=== PATIENT | male | born 1990 | race Caucasian/White ===

== ENCOUNTER 2021-07-19 12:10 | Outpatient (REF) | payer BC, SELFPAY ==
[2021-07-19 15:49] LABS: COVID-19 Test Negative (Negative)
== END 2021-07-19 12:11 | disposition home or self-care (01) ==
LOC: HO.LAB 12:10
PROVIDERS: Visit Provider Internal Medicine
DX: Z20.822 Contact with and (suspected) exposure to COVID-19 (principal)
CPT/HCPCS: 87635; C9803

== ENCOUNTER 2023-06-06 12:58 | Outpatient (AMB) | payer OTHER, SELFPAY ==
--- NOTE | 2023-06-06 13:28 | AM.OFFWIN_ITS ---
Intake Vital Signs 06/06/23 13:36 Height 5 ft 10 in Weight 177 lb 6 oz BMI 25.4 BP 122/78 Blood Pressure Location Lt brachial Position Sitting Pulse 100 Pulse Source Pulse Oximeter Temp 97.9 F Temp Source Temporal Artery Scan Pulse Oximetry (%) 100 Oxygen Delivery Method Room Air Intake Visit Reasons: EP sore throat/strepth [id number] Intake Note: Pt is here c/o sore throat. Patient Tobacco Use Status: Never used Tobacco Allergies mercaptopurine Adverse Reaction (Intermediate, Verified 06/06/23 13:30) Unknown Do you need a note to return to daycare/school/sports/work: No HPI HPI Comments History of Present Illness Details Patient presents with ST complaint Since since last Sunday + ST 6/ in am Worse in am Better throughout day No ear pain + congestion and cough No CP or SOB No fever or chills Taking OTC medicine which helps No other complaints Brother and GF sick as well PFSH Social History Patient Tobacco Use Status: Never used Tobacco Review of Systems Const Denies chills and Denies fever(s) Eyes Denies blurry vision ENT Reports nasal discharge and Reports sore throat Card Denies chest pain Resp Reports cough and Denies pain with cough Physical Exam Vital Signs: Last Vital Signs Temp 97.9 F 06/06/23 13:36 Pulse 100 06/06/23 13:36 BP 122/78 06/06/23 13:36 Pulse Ox 100 06/06/23 13:36 Oxygen Delivery Method Room Air 06/06/23 13:36 BMI result Body Mass Index 25.4 General: Non-toxic, NAD. Speaking full sentences. Skin: Warm dry throughout Eye: EOMI HENT: Airway patent. Uvula midline. Slight pharyngeal erythema without exudates or edema. No DOWEL POINTER. +clear rhinorrhea Bilateral canals clear. TM non-erythematous, non-bulging. No TM perforation or hemotympanum noted. Respiratory: CTA bilaterally. No wheezes, rales or rhonchi Cardiac: RRR. No murmur MSK: Full ROM extremities. Neurology: A/O. No aphasia or facial droop. Gait without abnormality Psych: Good mood and affect Results AMB Rapid Strep AMB Rapid Strep Negative Last Edit by Jayne Barroso CMA on 06/06/23 13:53 Results Reviewed Results Reviewed: Laboratory Last Values Strep Scn Rapid Clinic Negative 06/06/23 13:52 Assessment & Plan Assessment & Plan (1) Upper respiratory disease: Code(s): J39.9 - Disease of upper respiratory tract, unspecified Plan Patient seen and evaluated Lungs CTA Strep negative Discussed fluids and continual OTC medicine Call PCP for follow up ED if worsening Pt expressed verbal understanding and all questions answered Orders: Orders AMB Rapid Strep Screen 06/06/23 Z13.9 - Encounter for screening, unspecified Coding Level of Care Code Est Pt Level 3 (04409) Diagnoses Upper respiratory disease J39.9
[2023-06-06 13:36] VITALS: BP 122/78; PULSE 100; TEMP 36.6; O2SAT 100; BMI 25.4
== END 2023-06-06 15:12 | disposition home or self-care (01) ==
PROVIDERS: Visit Provider Physician Assistant
DX: J02.9 Acute pharyngitis, unspecified (principal)
CPT/HCPCS: 87880; 99213

== ENCOUNTER 2023-08-07 08:03 | Outpatient (AMB) | payer OTHER, SELFPAY ==
--- NOTE | 2023-08-07 08:06 | MHC.OFFWIV ---
Intake Vital Signs 08/07/23 08:17 Height 5 ft 10 in Weight 177 lb BMI 25.4 BP 122/74 Blood Pressure Location Lt brachial Position Sitting Pulse 85 Pulse Source Pulse Oximeter Temp 97.8 F Temp Source Oral Pulse Oximetry (%) 98 Intake Visit Reasons: EP LFT eye infection Intake Note: pt is here for left eye infection, states has runny nose, denies vision changes, states there is light sensitivity both eyes corrected 20/13 right eye corrected 20/20 left eye corrected 20/25 Patient Tobacco Use Status: Never used Tobacco Allergies mercaptopurine Adverse Reaction (Intermediate, Verified 08/07/23 09:13) Unknown Medication List - Last Reconciled 08/07/23 by Brian Ramirez MD No Known Home Meds Do you need a note to return to daycare/school/sports/work: Yes HPI EP LFT eye infection HPI Details 32-year-old male presents to the office with worsening pain in the left eye. Symptoms started on Sunday and the pain is slowly worsening. He is having significant photophobia him and is wearing dark glasses while coming to the office today. No mucoid discharge from the eye. Increased tearing. Denies any foreign body sensation. PFSH Social History Patient Tobacco Use Status: Never used Tobacco Physical Exam Vital Signs: Last Vital Signs Temp 97.8 F 08/07/23 08:17 Pulse 85 08/07/23 08:17 BP 122/74 08/07/23 08:17 Pulse Ox 98 08/07/23 08:17 BMI result Body Mass Index 25.4 HEENT Other: Left eye: Bulbar and tarsal conjunctiva is congested, corneas clear pupil reacting to light. Moderate digital tenderness Assessment & Plan Assessment & Plan (1) Iritis: Code(s): H20.9 - Unspecified iridocyclitis Plan: Iritis needs to be ruled out. There was no fluoro uptake. Patient was made an ophthalmology appointment for later this afternoon at [address] Coding Level of Care Code Est Pt Level 4 (06061) Diagnoses Iritis H20.9
[2023-08-07 08:17] VITALS: BP 122/74; PULSE 85; TEMP 36.6; O2SAT 98; BMI 25.4
== END 2023-08-07 09:41 | disposition home or self-care (01) ==
PROVIDERS: Visit Provider Internal Medicine
DX: H20.9 Unspecified iridocyclitis (principal)
CPT/HCPCS: 99214

== ENCOUNTER 2023-08-08 07:29 | Outpatient (REF) | payer OTHER, SELFPAY ==
[2023-08-08 11:38] LABS: MANUAL DIFF FLAG NO
[2023-08-08 11:51] LABS: Basophils Absolute Auto 0.1 X10*3/uL (0.0-0.2); Basophils Percent Auto 0.6 % (0-2); Eosinophils Absolute Auto 0.1 X10*3/uL (0.0-0.4); Hematocrit 52.5 % (42.0-52.0); Hemoglobin 18.3 g/dl (14.0-18.0); Imm Gran Abs Auto 0.04 X10*3/uL (0.00-0.03); Imm Gran Pct Auto 0.4 % (0.0-0.4); Lymphocytes Absolute Auto 2.7 X10*3/uL (1.2-4.9); Lymphocytes Percent Auto 25.4 % (20-40); Mean Corpuscular HGB Conc 34.9 g/dl (31.0-36.0); Mean Corpuscular Hemoglobin 29.6 pg (27.0-33.0); Mean Corpuscular Volume 84.8 fL (80.0-98.0); Monocytes Absolute Auto 0.8 X10*3/uL (0.1-1.2); Neutrophils Absolute Auto 6.8 x10*3/uL (2.0-8.3); Neutrophils Percent Auto 64.6 % (45-73); Platelet Count 214 X10*3/uL (160-400); Red Blood Count 6.19 X10*6/uL (4.60-5.80); Red Cell Distribution Width 12.1 % (11.0-16.0); White Blood Count 10.4 X10*3/uL (4.8-10.8)
[2023-08-08 12:04] LABS: Rheumatoid Factor < 13.0 IU/mL (<15.0)
[2023-08-08 12:15] LABS: Anion Gap 13 (12-20); C Reactive Protein 0.61 mg/dL (< or = 0.50); Carbon Dioxide 27 mmol/L (22-29); Chloride 102 mmol/L (96-108); Potassium 4.7 mmol/L (3.3-5.1); Sodium 137 mmol/L (135-145)
[2023-08-08 12:17] LABS: Glucose Fasting 353 mg/dL (60-99)
[2023-08-08 13:21] LABS: Erythrocyte Sedimentation Rate 18 MM/HR (0-15)
[2023-08-09 03:50] LABS: Syphilis Screen Nonreactive (Nonreactive)
[2023-08-11 13:58] LABS: Anti Nuclear Antibody Screen NEGATIVE (NEGATIVE)
== END 2023-08-08 07:30 | disposition home or self-care (01) ==
LOC: HO.HMGCLDS 07:29
PROVIDERS: Visit Provider Ophthalmology
DX: H20.9 Unspecified iridocyclitis (principal)
CPT/HCPCS: 36415; 80051; 82947; 85025; 85652; 86038; 86140; 86431; 86780

== ENCOUNTER 2023-08-29 13:36 | Outpatient (AMB) | payer OTHER, SELFPAY ==
--- NOTE | 2023-08-29 13:59 | A.OFFPC_ITS ---
Vital Signs 08/29/23 14:02 Height 5 ft 10 in Weight 167 lb 6 oz BMI 24.0 BP 110/70 Blood Pressure Location Lt brachial Position Sitting Pulse 105 H Pulse Source Pulse Oximeter Pulse Oximetry (%) 98 Oxygen Delivery Method Room Air Intake Visit Reasons: medication follow up/ elevated fasting blood sugar Intake Note: Patient is a new patient here to establish care for IBS, Chron's, Eye issues, Diabetes. Transferring care from Dr Herrera ([facility]). Medical records have not been requested and have not received.Patient is here to follow up on medication f/u, elevated fasting blood sugar. Patient Safety Attendant Required: No Video Surveillance Technician: Not Required per policy Accompanied by: Self / Same As Patient Allergies mercaptopurine Adverse Reaction (Intermediate, Verified 08/29/23 14:28) pancreatitis Medication List - Last Reconciled 08/29/23 by Brian Ramirez MD metformin 500 mg PO BID prednisolone acetate 1% 1 drp ophthalmic (eye) TID Tobacco use date assessed: 08/29/23 Dental Screening Dental Screen Date: 08/29/23 Did you have a dental visit in the last 12 months?: No Did you have a dental problem in the last 6 months where you did not have access to dental care?: No Was dental information given to patient?: No HPI medication follow up/ elevated fasting blood sugar HPI Details 33-year-old male presents to the office to discuss his medical conditions. Patient was initially seen at the walk-in a few weeks ago and diagnosed with iritis. He was immediately sent to a local rehab tech who confirmed the diagnosis and did blood work to rule out autoimmune conditions. His blood sugar was found to be elevated. Patient requested that I be his primary care provider. Patient gives history of inflammatory bowel disease in the remote past. For the past 6 years he has not been taking any medications. His symptoms have also been under control. The last colonoscopy was more than 6 years ago. After starting metformin his symptoms of increased frequency of urination has subsided. [facility] Medical History (Updated 08/29/23 @ 14:35 by Brian Ramirez MD) Inflammatory bowel disease (Crohn's disease) Type 2 diabetes mellitus without complications Acute iritis Surgical History No pertinent past surgical history Social History Housing: House Alcohol intake: current Alcohol intake frequency: holidays/special occasions only Patient Tobacco Use Status: Never used Tobacco e-Cigarette/Vaping Use: Never Used Second Hand Smoke Exposure: No service: No Current occupational status: employed Cognitive needs: No Hearing needs: No Vision needs: Yes (glasses) Questionnaire PHQ-9 Over the last 2 weeks, how often have you been bothered by any of the following problems? 1. Little interest or pleasure in doing things: not at all 2. Feeling down, depressed, or hopeless: not at all 3. Trouble falling or staying asleep, or sleeping too much: not at all 4. Feeling tired or having little energy: not at all 5. Poor appetite or overeating: not at all 6. Feeling bad about yourself - or that you are a failure or have let yourself or your family down: not at all 7. Trouble concentrating on things, such as reading the newspaper or watching television: not at all 8. Moving or speaking so slowly that other people could have noticed. Or the opposite - being so fidgety or restless that you have been moving around a lot more than usual: not at all 9. Thoughts that you would be better off or of hurting yourself in some way: not at all Total score: 0 Depression Screening Interpretation: Negative Depression Screening Done: Yes Source: Developed by Drs. Ed Ewing, Alicia Garcia, Lonnie Caballero and colleagues, with an educational radha from [employer] Thrive Questionnaire Date Thrive assessed: 08/29/23 I am a: Patient What is your living situation today?: I have a steady place to live Within the past 12 months, did the food you bought not last and you didn't have the money to get more?: Never true Within the past 12 months, did you worry whether your food would run out before you got money to buy more?: Never true Do you have trouble paying for medicines?: No Do you have trouble getting transportation to medical appointments?: No Do you have trouble paying your heating and electricity bill?: No Do you have trouble taking care of your child, family member or friend?: No Do you have trouble with day-to-day activities such as bathing, preparing meals, shopping, managing finances, etc.?: No Are you currently unemployed and looking for a job?: No Are you interested in more education?: No Currently or been in a relationship where the following occur: no concerns reported THRIVE Score: 0 AUDIT C Alcohol Use Questionnaire (AUDIT-C) 1. How often do you have a drink containing alcohol?: Never Total Score: 0 ESA-7 AMB Questionnaire ESA-7 Date ESA - 7 assessed: 08/29/23 Feeling nervous, anxious, or on edge: 0 = Not at all Not being able to stop or control worryin = Not at all Worrying too much about different things: 0 = Not at all Trouble relaxin = Not at all Being so restless that it is hard to sit still: 0 = Not at all Becoming easily annoyed or irritable: 0 = Not at all Feeling afraid as if something awful might happen: 0 = Not at all Total ESA-7 score (0-4 normal; 5-9 mild; 10-14 moderate; 15-21 severe): 0 Source: Developed by Drs. Ed Ewing, Alicia Garcia, Lonnie Caballero and colleagues, with an educational radha from [employer] Physical exam (Primary Care) Vital Signs: Last Vital Signs Pulse 105 H 08/29/23 14:02 BP 110/70 08/29/23 14:02 Pulse Ox 98 08/29/23 14:02 Oxygen Delivery Method Room Air 08/29/23 14:02 BMI result Body Mass Index 24.0 Tobacco/Smoking Status: Tobacco use Status Tobacco use date assessed 08/29/23 08/29/23 14:10 Patient Tobacco Use Status Never used Tobacco 08/29/23 14:09 e-Cigarette/Vaping Use Never Used 08/29/23 14:10 PHQ-9: PHQ-9 Score PHQ-9: Total score 0 08/29/23 14:10 Depression Screening Interpretation: Negative Thrive Assessment: Date of Thrive Assessment Date Thrive assessed 08/29/23 08/29/23 14:10 Currently or been in a relationship where the following occur: no concerns reported Const General: cooperative and healthy appearing Nutritional Appearance: well nourished Orientation/consciousness: patient oriented x3 Limitations: no limitations HENMT Head: Yes normal to inspection Eyes General: appearance normal, both eyes and all related structures Neck Neck: Yes normal visual inspection Chest Chest palpation & inspection: normal palpation of entire chest wall Resp Effort & Inspection: normal respiratory effort Neuro General: patient oriented x3 Assessment and Plan Assessment & Plan (1) Type 2 diabetes mellitus without complications: Code(s): E11.9 - Type 2 diabetes mellitus without complications Plan: Metformin to be continued. Blood work has been ordered. (2) Inflammatory bowel disease (Crohn's disease): Code(s): K50.90 - Crohn's disease, unspecified, without complications Plan: This condition appears to be stable. (3) Acute iritis: Code(s): H20.00 - Unspecified acute and subacute iridocyclitis Plan: Condition is improving and he continues to see the rehab tech. Coding Level of Care Code Est Pt Level 4 (50507) Diagnoses Type 2 diabetes mellitus without complications E11.9 Inflammatory bowel disease (Crohn's disease) K50.90 Acute iritis H20.00
[2023-08-29 14:02] VITALS: BP 110/70; PULSE 105; O2SAT 98; BMI 24.0
== END 2023-08-29 14:28 | disposition home or self-care (01) ==
PROVIDERS: Visit Provider Internal Medicine
DX: E11.9 Type 2 diabetes mellitus without complications (principal); K50.90 Crohn's disease, unspecified, without complications; H20.00 Unspecified acute and subacute iridocyclitis
CPT/HCPCS: 99214

== ENCOUNTER 2023-08-31 10:14 | Outpatient (REF) | payer OTHER, SELFPAY ==
[2023-08-31 13:30] LABS: Hematocrit 49.1 % (42.0-52.0); Hemoglobin 17.3 g/dl (14.0-18.0); Mean Corpuscular HGB Conc 35.2 g/dl (31.0-36.0); Mean Corpuscular Hemoglobin 29.1 pg (27.0-33.0); Mean Corpuscular Volume 82.5 fL (80.0-98.0); Platelet Count 232 X10*3/uL (160-400); Red Blood Count 5.95 X10*6/uL (4.60-5.80); Red Cell Distribution Width 11.9 % (11.0-16.0); White Blood Count 8.9 X10*3/uL (4.8-10.8)
[2023-08-31 14:06] LABS: Estimated Average Glucose 246 mg/dL; Hemoglobin A1c % 10.2 % (<6.0)
[2023-08-31 14:15] LABS: Erythrocyte Sedimentation Rate 12 MM/HR (0-15)
[2023-08-31 14:42] LABS: Alanine Aminotransferase 16 U/L (0-40); Albumin Level 3.8 g/dL (3.5-5.0); Alkaline Phosphatase 67 U/L (39-117); Anion Gap 11 (12-20); Aspartate Amino Transferase 13 U/L (5-37); Bilirubin Direct 0.3 mg/dL (0.0-0.5); Bilirubin Total 1.4 mg/dL (0.0-1.0); Blood Urea Nitrogen 20 mg/dL (9-16); Calcium 9.7 mg/dL (8.4-10.2); Carbon Dioxide 26 mmol/L (22-29); Chloride 108 mmol/L (96-108); Cholesterol 169 mg/dL (<200); Estimated Glomerular Filt Rate > 60; Glucose Random 224 mg/dL (60-115); HDL Cholesterol 33 mg/dL (>40); LDL Cholesterol Calculated 102 mg/dL (<100); Potassium 3.8 mmol/L (3.3-5.1); Sodium 141 mmol/L (135-145); Triglycerides 173 mg/dL (<150)
== END 2023-08-31 10:15 | disposition home or self-care (01) ==
LOC: HO.HMGCLDS 10:14
PROVIDERS: PCP Internal Medicine; Visit Provider Internal Medicine
DX: K50.90 Crohn's disease, unspecified, without complications (principal); E11.9 Type 2 diabetes mellitus without complications; H20.00 Unspecified acute and subacute iridocyclitis
CPT/HCPCS: 36415; 80048; 80061; 80076; 83036; 85027; 85652; 86140

== ENCOUNTER 2023-12-20 08:52 | Outpatient (AMB) | payer OTHER, SELFPAY ==
--- NOTE | 2023-12-20 09:37 | A.OFFPC_ITS ---
Vital Signs 12/20/23 09:38 Height 5 ft 10 in Weight 157 lb 4 oz BMI 22.6 BP 102/72 Blood Pressure Location Lt brachial Position Sitting Pulse 135 H Pulse Source Pulse Oximeter Pulse Oximetry (%) 97 Oxygen Delivery Method Room Air Intake Visit Reasons: 3mth f/u Intake Note: Patient is here to follow up on DM, IBS. Instrument Repair Technician Required: No Conveyor System Dispatcher: Not Required per policy Accompanied by: Self / Same As Patient Allergies mercaptopurine Adverse Reaction (Intermediate, Verified 12/20/23 10:38) pancreatitis Medication List - Last Reconciled 12/20/23 by Brian Ramirez MD empagliflozin (Jardiance) 25 mg PO DAILY metformin 500 mg PO BID Tobacco use date assessed: 12/20/23 Dental Screening Dental Screen Date: 08/29/23 HPI 3mth f/u HPI Details 33-year-old male presents to the office for a follow-up visit. Patient has been compliant with metformin and Jardiance. Not checking his sugars regularly. Not following any particular diet. Patient reports that the metformin continues to give him diarrhea. It has been more than 6 weeks since he has been on the medication and the symptoms continue. Up to 6 bowel movements a day with minimal cramping. He is getting up at night to go to the bathroom. The stools are oily. [facility] Medical History (Updated 08/29/23 @ 14:35 by Brian Ramirez MD) Inflammatory bowel disease (Crohn's disease) Type 2 diabetes mellitus without complications Acute iritis Surgical History No pertinent past surgical history Social History Housing: House Alcohol intake: current Alcohol intake frequency: holidays/special occasions only Patient Tobacco Use Status: Never used Tobacco e-Cigarette/Vaping Use: Never Used Second Hand Smoke Exposure: No service: No Current occupational status: employed Cognitive needs: No Hearing needs: No Vision needs: Yes (glasses) Questionnaire Thrive Questionnaire Date Thrive assessed: 08/29/23 ESA-7 AMB Questionnaire ESA-7 Date ESA - 7 assessed: 08/29/23 Source: Developed by Drs. Ed Ewing, Alicia B.Lonnie Herrera and colleagues, with an educational radha from [employer]. Physical exam (Primary Care) Vital Signs: Last Vital Signs Pulse 135 H 12/20/23 09:38 BP 102/72 12/20/23 09:38 Pulse Ox 97 12/20/23 09:38 Oxygen Delivery Method Room Air 12/20/23 09:38 BMI result Body Mass Index 22.6 Tobacco/Smoking Status: Tobacco use Status Tobacco use date assessed 12/20/23 12/20/23 09:39 Patient Tobacco Use Status Never used Tobacco 12/20/23 09:39 e-Cigarette/Vaping Use Never Used 12/20/23 09:39 Thrive Assessment: Date of Thrive Assessment Date Thrive assessed 08/29/23 12/20/23 09:39 Const General: cooperative and healthy appearing Nutritional Appearance: well nourished Orientation/consciousness: patient oriented x3 Limitations: no limitations HENMT Head: Yes normal to inspection Eyes General: appearance normal, both eyes and all related structures Neck Neck: Yes normal visual inspection Chest Chest palpation & inspection: normal palpation of entire chest wall Resp Effort & Inspection: normal respiratory effort Neuro General: patient oriented x3 Results AMB Hemoglobin A1c AMB Hemoglobin A1c 7.2 % Last Edit by ANKUSH Perez on 12/20/23 09:54 Results Reviewed Results Reviewed: Laboratory Last Values Hgb A1c (Clinic) 7.2 % (4.0-6.0) H 12/20/23 09:37 Assessment and Plan Assessment & Plan (1) Type 2 diabetes mellitus without complications: Code(s): E11.9 - Type 2 diabetes mellitus without complications Plan A1c has reduced to 7.2. Metformin is now on hold. I believe his symptoms are more due to IBS than as a side effect of metformin. Patient will return in 2 weeks and if the symptoms are still present, I will add the metformin back and advised him to see a GI physician. Orders: Orders AMB Hemoglobin A1c Today E11.9 - Type 2 diabetes mellitus without complications Medications: On Hold metformin Hold Comment: Doctor's Order 500 mg PO BID 60 tabs 0RF E11.9 - Type 2 diabetes mellitus without complications Coding Level of Care Code Est Pt Level 4 (16443) Complex EM visit Add On G2211 Diagnoses Type 2 diabetes mellitus without complications E11.9
[2023-12-20 09:38] VITALS: BP 102/72; PULSE 135; O2SAT 97; BMI 22.6
== END 2023-12-20 10:35 | disposition home or self-care (01) ==
LOC: HO.HMGH 08:52
PROVIDERS: PCP Internal Medicine; Visit Provider Internal Medicine
DX: E11.9 Type 2 diabetes mellitus without complications (principal)
CPT/HCPCS: 83036; 99214; G2211

== ENCOUNTER 2023-12-31 11:22 | Inpatient (IN) | payer OTHER, SELFPAY ==
--- NOTE | ~2023-12-31 | CT_ITS ---
EXAMINATION: CT CHEST WITH CONTRAST CLINICAL INFORMATION: Left lung mass, question pneumonia versus mass COMPARISON: None available. TECHNIQUE: Multidetector volumetric CT imaging of the chest was obtained after the administration of 65 mL of Omnipaque 350 intravenous contrast without immediate adverse reactions. Axial MIP volume rendering provided. Sagittal and coronal reformatted images were obtained. This CT examination was performed using dose optimization techniques as appropriate, variously including the following: *Automated exposure control *Adjustment of mA and/or kV according to patient size (this includes techniques or standardized protocols for targeted exams where dose is matched to indication/reason for exam; i.e. extremities or head) *Use of iterative reconstruction technique DLP: 211 mGy-cm FINDINGS: LUNGS: Within the periphery of the left upper lobe, there is a cavitary masslike lesion measuring approximately 5.2 x 6.7 x 6.9 cm with surrounding groundglass and consolidative components. There are patchy peripheral centrilobular opacities in the periphery of the left lower lobe MEDIASTINUM: Thyroid is unremarkable. There are prominent but subcentimeter mediastinal lymph nodes. Normal heart size, no pericardial effusion. No coronary artery calcifications. PLEURA: There is no pleural effusion. No pleural mass or thickening. AXILLA: Mild gynecomastia. No lymphadenopathy. UPPER ABDOMEN: Enlarged spleen. OSSEOUS STRUCTURES: Unremarkable. CT/CT chest w IV con IMPRESSION: 1. Within the periphery of the left upper lobe, there is a cavitary masslike lesion measuring 5.2 x 6.7 x 6.9 cm with surrounding groundglass and consolidative components. Differential considerations would include an infectious/inflammatory process such as cavitary pneumonia, septic emboli, however, underlying malignancy is not excluded. Tuberculosis could also have this appearance, correlate with clinical history. 2. Additional patchy peripheral centrilobular opacities in the periphery of the left lower lobe and in the right lung base. 3. Splenomegaly. Fleischner guidelines were followed.
[2023-12-31 12:08] VITALS: BP 130/85; PULSE 117; RESP 18; TEMP 36.9; O2SAT 96; BMI 22.0
--- NOTE | 2023-12-31 12:13 | ECG_ITS ---
Test Reason : tachycardia Blood Pressure : / mmHG Vent. Rate : 120 BPM Atrial Rate : 120 BPM P-R Int : 122 ms QRS Dur : 092 ms QT Int : 346 ms P-R-T Axes : 073 008 044 degrees QTc Int : 489 ms Sinus tachycardia Inferior infarct , age undetermined Abnormal ECG No previous ECGs available Referred By: Generic ED Physician Electronically Signed By:Sebas Velez
[2023-12-31 12:43] LABS: Basophils Absolute Auto 0.1 X10*3/uL (0.0-0.2); Basophils Percent Auto 0.7 % (0-2); Eosinophils Absolute Auto 0.4 X10*3/uL (0.0-0.4); Eosinophils Percent Auto 2.9 % (0-4); Hematocrit 43.7 % (42.0-52.0); Hemoglobin 14.7 g/dl (14.0-18.0); Imm Gran Abs Auto 0.04 X10*3/uL (0.00-0.03); Imm Gran Pct Auto 0.3 % (0.0-0.4); Lymphocytes Absolute Auto 2.5 X10*3/uL (1.2-4.9); Lymphocytes Percent Auto 19.7 % (20-40); MANUAL DIFF FLAG SCAN; Mean Corpuscular HGB Conc 33.6 g/dl (31.0-36.0); Mean Corpuscular Hemoglobin 27.8 pg (27.0-33.0); Mean Corpuscular Volume 82.8 fL (80.0-98.0); Mean Platelet Volume 9.7 fL (9.4-12.4); Monocytes Absolute Auto 1.5 X10*3/uL (0.1-1.2); Monocytes Percent Auto 12.1 % (2-11); Neutrophils Absolute Auto 8.2 x10*3/uL (2.0-8.3); Neutrophils Percent Auto 64.3 % (45-73); Platelet Count 407 X10*3/uL (160-400); Red Blood Count 5.28 X10*6/uL (4.60-5.80); Red Cell Distribution Width 12.1 % (11.0-16.0); SCAN SMEAR FLAG 1; White Blood Count 12.7 X10*3/uL (4.8-10.8)
[2023-12-31 12:56] LABS: Alanine Aminotransferase 17 U/L (0-40); Albumin Level 3.5 g/dL (3.5-5.0); Alkaline Phosphatase 81 U/L (39-117); Anion Gap 13 (12-20); Aspartate Amino Transferase 12 U/L (5-37); Bilirubin Total 0.8 mg/dL (0.0-1.0); Blood Urea Nitrogen 14 mg/dL (9-16); Calcium 9.5 mg/dL (8.4-10.2); Carbon Dioxide 26 mmol/L (22-29); Chloride 103 mmol/L (96-108); Creatinine Clr Calc Pharmacy 82.7; Estimated Glomerular Filt Rate > 60; Glucose Random 246 mg/dL (60-115); Potassium 3.6 mmol/L (3.3-5.1); Sodium 138 mmol/L (135-145); Total Protein 7.6 g/dL (6.5-8.0)
[2023-12-31 13:02] LABS: SLIDE REVIEW VERIFIED
[2023-12-31 13:28] LABS: Influenza A PCR NEGATIVE (Negative); Influenza B PCR NEGATIVE (Negative); Resp Syncy Virus RNA Qual PCR NEGATIVE (Negative); SARS COV2 PCR INHOUSE NEGATIVE (Negative)
--- NOTE | 2023-12-31 14:22 | ED_ITS ---
HPI - Extremity Problem General Chief complaint: Extremity Injury, Upper Stated complaint: Mass on lung sent by urgent care Time Seen by Provider: 12/31/23 14:21 Source: patient and RN notes reviewed Mode of arrival: ambulatory Limitations: no limitations History of Present Illness ED Provider: China Blandon PA-C [facility] Narrative: This is a 33-year-old male who presents emergency department with complaints of cough, shortness for breath, and left-sided chest heaviness x 2 weeks. Patient reports that he developed a cold 2 weeks ago after camping and states that he has had a productive cough with yellow-colored sputum, shortness for breath, and left-sided chest heaviness since. He went to an urgent care where he had a chest x-ray performed and there was a 8 cm cavitary lesion noted in his left lung. He was told to come to the emergency room for a CT scan of his chest. He has had no fevers, night sweats, profound weight loss. He was [place], no recent travels. No sick contacts. No other complaints or concerns at this time Radiation: none Relieving factors: nothing Exacerbating factors: nothing Associated symptoms: denies other symptoms Related Data Previous Rx's ?Medication ?Instructions ?Recorded empagliflozin 25 mg tablet 25 mg PO DAILY #90 tabs 12/06/23 (Jardiance) metformin 500 mg tablet 500 mg PO BID #60 tabs 12/06/23 Allergies Allergy/AdvReac Type Severity Reaction Status Date / Time mercaptopurine AdvReac Intermediate pancreatiti Verified 12/31/23 12:13 s Review of Systems 2 Review of Systems: Yes all other systems are reviewed and are negative Constitutional: Constitutional: Reports as per [facility] Past Medical History Attestation statement: The following information was validated with the patient. Medical History Inflammatory bowel disease (Crohn's disease) Type 2 diabetes mellitus without complications Acute iritis Surgical History No pertinent past surgical history Social History Social History Housing: House Alcohol intake: current Alcohol intake frequency: holidays/special occasions only Patient Tobacco Use Status: Never used Tobacco e-Cigarette/Vaping Use: Never Used Second Hand Smoke Exposure: No Advance Directives: No Advance Directives Information Provided: Yes Do you have a plan to hurt others: No Plan service: No Current occupational status: employed Cognitive needs: No Hearing needs: No Vision needs: Yes (glasses) Physical Exam 2 Vital Signs: Vital Signs: Last Vital Signs Temp 98.4 F 12/31/23 12:08 Pulse 117 H 12/31/23 12:08 Resp 18 12/31/23 12:08 BP 130/85 12/31/23 12:08 Pulse Ox 96 12/31/23 12:08 O2 Del Method Room Air 12/31/23 12:08 BMI result Body Mass Index 22.0 Const: General: cooperative, comfortable and no acute distress O rientation/consciousness: patient oriented x3 Limitations: no limitations HEENT: Head: Yes normal to inspection, Yes normocephalic and Yes atraumatic Ears: hearing grossly normal bilaterally General nose exam: Normal external nose present Face and sinus: Yes normal facial exam Mouth: Normal oral and palatal mucosa present, oropharynx normal and moist mucous membranes Throat: Yes posterior oropharynx normal Eyes: General: appearance normal, both eyes and all related structures E yelids: Yes eyelids normal Conjunctivae: conjunctivae normal Sclerae: s clerae normal Pupils: Equal, round and reactive pupils present EOM: EOMs intact bilaterally Neck: Neck: Yes normal visual inspection, Yes full ROM and Yes no lymphadenopathy Lymphatic: no lymphadenopathy noted Chest: Chest palpation & inspection: normal inspection of the chest Resp: Effort & Inspection: normal respiratory effort and able to speak in complete sentences Auscultation: clear to auscultation bilaterally, no crackles, no rales, no rhonchi and no wheezes Cardio: Rate: regular rate Rhythm: regular rhythm Heart sounds: S1 normal heart sound present and S2 normal heart sound present GI: Inspection: Yes normal to inspection Skin: General skin exam: no rashes or lesions noted Trauma: no lacerations or abrasions Wounds: no wounds Neuro: General: patient oriented x3 and moves all extremities Cranial nerves: Yes Equal, round and reactive pupils present Extrem: General: Yes normal to inspection Right upper extremity: normal to inspection Left upper extremity: normal to inspection Right lower extremity: normal to inspection Left lower extremity: normal to inspection Medical Decision Making Medical Decision Making MDM Narrative: This is a 33-year-old male, with no medical problems, who presents emergency department with complaints of left-sided chest heaviness, productive cough, shortness for breath for the last 2 weeks. On arrival, patient mildly tachycardic at 1:17 a.m., he is speaking in full sentences under no acute distress. He presented with his urgent care notes revealing a cavitary mass in the left upper lobe measuring 7-1/2 x 8 cm. He was recommended to come to the emergency room for a CT scan of his chest. Lungs are clear to auscultation bilaterally however diminished in the left upper lung field. Differential Diagnosis Differential Diagnoses: The differential diagnosis associated with the presentation includes Admission/Observation Consideration of admission/observation: Escalation of care including admission/observation considered Lab Data MDM Lab Attestation statement: I reviewed the patient's lab results. 12/31/23 12:24 12/31/23 12:24 Labs: Lab Results 12/31/23 12/31/23 Range/Units 12:23 12:24 WBC 12.7 H (4.8-10.8) X10*3/uL RBC 5.28 (4.60-5.80) X10*6/uL Hgb 14.7 (14.0-18.0) g/dl Hct 43.7 (42.0-52.0) % MCV 82.8 (80.0-98.0) fL MCH 27.8 (27.0-33.0) pg MCHC 33.6 (31.0-36.0) g/dl RDW 12.1 (11.0-16.0) % Plt Count 407 H D (160-400) X10*3/uL MPV 9.7 (9.4-12.4) fL Immature Gran % (Auto) 0.3 (0.0-0.4) % Neut % (Auto) 64.3 (45-73) % Lymph % (Auto) 19.7 L (20-40) % [place] % (Auto) 12.1 H (2-11) % Eos % (Auto) 2.9 (0-4) % Baso % (Auto) 0.7 (0-2) % Lymph # (Auto) 2.5 (1.2-4.9) X10*3/uL [place] # (Auto) 1.5 H (0.1-1.2) X10*3/uL Eos # (Auto) 0.4 (0.0-0.4) X10*3/uL Baso # (Auto) 0.1 (0.0-0.2) X10*3/uL Abs Immat Gran (auto) 0.04 H (0.00-0.03) X10*3/uL Absolute Neuts (auto) 8.2 (2.0-8.3) x10*3/uL Absolute Nucleated RBC 0.000 (0.0-0.012) X10*3/uL Nucleated RBC % (auto) 0.0 (0.0-0.2) /100WBC Smear Tech's Comments VERIFIED Sodium 138 (135-145) mmol/L Potassium 3.6 (3.3-5.1) mmol/L Chloride 103 (96-108) mmol/L Carbon Dioxide 26 (22-29) mmol/L Anion Gap 13 (12-20) BUN 14 (9-16) mg/dL Creatinine 1.24 (0.5-1.4) mg/dL Estim Creat Clear Calc 82.7 Estimated GFR > 60 Random Glucose 246 H (60-115) mg/dL Lactic Acid 1.0 (0.5-2.0) mmol/L Calcium 9.5 (8.4-10.2) mg/dL Total Bilirubin 0.8 (0.0-1.0) mg/dL AST 12 (5-37) U/L ALT 17 (0-40) U/L Alkaline Phosphatase 81 (39-117) U/L Total Protein 7.6 (6.5-8.0) g/dL Albumin 3.5 (3.5-5.0) g/dL Influenza Type A (PCR) NEGATIVE (Negative) Influenza Type B (PCR) NEGATIVE (Negative) RSV RNA Qual (PCR) NEGATIVE (Negative) SARS-CoV-2 RNA (RT-PCR) NEGATIVE (Negative) Radiology Impression Discussion of test interpretation with radiology: I have reviewed the radiologist's reading. External Record Review External record reviewed: Inpatient record, Office record, Outpatient record, Prior outpatient labs, Prior outpatient radiology, Primary care record and Outside ED record Discharge Plan Discharge Prescriptions: No Action Jardiance 25 mg tablet 25 mg PO DAILY Qty: 90 2RF metformin 500 mg tablet 500 mg PO BID Qty: 60 0RF Hold Instructions: Doctor's Order Print Language: Occitan
[2023-12-31] MEDS: iohexoL 350 MG/ML 75 ML INFUS..BTL 65 ML IV (16:15)
[2023-12-31 16:31] LABS: Troponin-I High Sensitivity < 2.7 ng/L (<3.5-35.0)
--- NOTE | 2023-12-31 18:20 | ED_ITS ---
[facility] - General Adult General Chief complaint: Extremity Injury, Upper Stated complaint: Mass on lung sent by urgent care Time Seen by Provider: 12/31/23 14:21 Source: patient, family and RN notes reviewed Mode of arrival: ambulatory Limitations: no limitations History of Present Illness ED Provider: China Blandon PA-C HPI narrative: This is a 33-year-old male who presents emergency department with complaints of cough, shortness of breath, and left-sided chest heaviness x 2 weeks. Patient reports that he developed congestion and a cough 2 weeks ago. He states that of last week he went camping and noticed worsening symptoms including a cough, and left-sided heaviness. He attributed this to poor sleeping. He went to an urgent care where he had a chest x-ray performed and there was a 8 cm cavitary lesion noted in his left lung. He was told to come to the emergency room for a CT scan of his chest. He has had no fevers, night sweats, profound weight loss. He was [place], no recent travels. No sick contacts. No other complaints or concerns at this time. MD complaint: Shortness breath, productive cough Onset (ago): week(s) Radiation: non-radiation Relieving factors: none Exacerbating factors: none Associated symptoms: chest pain and cough Treatments prior to arrival: none Related Data Home Medications ?Medication ?Instructions ?Recorded ?Confirmed benzonatate 200 mg capsule 200 mg PO Q8H PRN Cough 12/31/23 12/31/23 fluticasone propionate 50 2 spray intranasal DAILY 12/31/23 12/31/23 mcg/actuation nasal spray,suspension Previous Rx's ?Medication ?Instructions ?Recorded empagliflozin 25 mg tablet 25 mg PO DAILY #90 tabs 12/06/23 (Jardiance) Allergies Allergy/AdvReac Type Severity Reaction Status Date / Time mercaptopurine AdvReac Intermediate pancreatiti Verified 12/31/23 12:13 s Review of Systems 2 Review of Systems: Yes all other systems are reviewed and are negative Constitutional: Constitutional: Reports as per [facility] Past Medical History Medical History Inflammatory bowel disease (Crohn's disease) Type 2 diabetes mellitus without complications Acute iritis Surgical History No pertinent past surgical history Social History Social History Housing: House Alcohol intake: current Alcohol intake frequency: holidays/special occasions only Patient Tobacco Use Status: Never used Tobacco e-Cigarette/Vaping Use: Never Used Second Hand Smoke Exposure: No Advance Directives: No Advance Directives Information Provided: Yes Do you have a plan to hurt others: No Plan service: No Current occupational status: employed Cognitive needs: No Hearing needs: No Vision needs: Yes (glasses) Physical Exam ED Vital Signs: Vital Signs - 24 hr 12/31/23 12:08 12/31/23 19:56 Temperature 98.4 F 98.6 F Pulse Rate 117 H 115 H Respiratory Rate 18 16 Blood Pressure 130/85 129/84 Pulse Oximetry 96 96 Oxygen Delivery Method Room Air Room Air BMI result Body Mass Index 22.0 Const General: cooperative, comfortable and no acute distress Orientation/consciousness: patient oriented x3 Limitations: no limitations HENMT Head: Yes normal to inspection, Yes normocephalic and Yes atraumatic Ears: hearing grossly normal bilaterally General nose exam: Normal external nose present Face and sinus: Yes normal facial exam Mouth: Normal oral and palatal mucosa present, oropharynx normal and moist mucous membranes Throat: Yes posterior oropharynx normal Eyes General: appearance normal, both eyes and all related structures Eyelids: Yes eyelids normal Conjunctivae: conjunctivae normal Sclerae: sclerae normal Pupils: Equal, round and reactive pupils present EOM: EOMs intact bilaterally Neck Neck: Yes normal visual inspection, Yes full ROM and Yes no lymphadenopathy Lymphatic: no lymphadenopathy noted Chest Chest palpation & inspection: normal inspection of the chest Resp Other: Diminished lung sounds in the left upper base, otherwise no wheezes, rales or rhonchi Effort & Inspection: normal respiratory effort and able to speak in complete sentences Cardio Rate: regular rate Rhythm: regular rhythm Heart sounds: S1 normal heart sound present and S2 normal heart sound present GI Inspection: Yes normal to inspection Skin General skin exam: no rashes or lesions noted Trauma: no lacerations or abrasions Wounds: no wounds Neuro General: patient oriented x3 and moves all extremities Cranial nerves: Yes Equal, round and reactive pupils present Extrem General: Yes normal to inspection Right upper extremity: normal to inspection Left upper extremity: normal to inspection Right lower extremity: normal to inspection Left lower extremity: normal to inspection Course Reevaluation(s) Reevaluation #1: CT scan returns, revealing a cavitary masslike lesion measuring 5 x 7 x 6 cm with surrounding ground-glass and consolidative component. Differential considerations including infectious inflammatory process such as cavitary pneumonia, septic emboli however underlying malignancy is not excluded, tuberculosis could also have this appearance correlate with clinical history. There are also additional patchy peripheral central lobar opacities in the periphery of the left lower lobe and in the right lung base. There is splenomegaly noted. Time: 18:54 Reevaluation #2: Discussed with patient, as well as hospitalist, transfer of care initiated. Patient is agreeable for hospitalization. Time: 19:40 Medications Administered Generic Name Dose Route Start Last Admin Trade Name Freq PRN Reason Stop Dose Admin Insulin Human Lispro 0 unit 12/31/23 21:00 12/31/23 21:08 Insulin Lispro 100 Unit/Ml 3 Ml Vial SUBCUT Not Given QIDACHS DENY Protocol Discontinued Medications Generic Name Dose Route Start Last Admin Trade Name Freq PRN Reason Stop Dose Admin Piperacillin Sod/Tazobactam 50 mls @ 100 mls/hr 12/31/23 19:28 12/31/23 21:05 Sod 3.375 gm/ Sodium Chloride IV 12/31/23 19:57 Infused ONCE ONE Infusion Sodium Chloride 1,000 mls @ 999 mls/hr 12/31/23 19:30 12/31/23 20:28 Ns IV 12/31/23 20:30 999 mls/hr .Q1H1M ONE Administration Iohexol 65 ml 12/31/23 16:12 12/31/23 16:15 Iohexol 350 Mg/Ml 75 Ml Infus..Btl IV 12/31/23 16:13 65 ml ONCE ONE Administration Medical Decision Making Medical Decision Making MDM Narrative: This is a 33-year-old male, with a history of diabetes, who presents emergency department with complaints of left-sided chest heaviness, productive cough, shortness for breath for the last 2 weeks. On arrival, patient mildly tachycardic at 117, he is speaking in full sentences under no acute distress. He presented with his urgent care notes revealing a cavitary mass in the left upper lobe measuring 7-1/2 x 8 cm. He was recommended to come to the emergency room for a CT scan of his chest. Lungs are clear to auscultation bilaterally however diminished in the left upper lung field. He was [place], no recent travel. No surgeries or hospitalizations. He has only been to [place] once in his life. He works at [employer] in [place]. No known exposure to any tuberculosis. No sick contacts. He has not had any profound night sweats. He does endorse some weight loss however has been on metformin. I discussed this case with my attending physician, Dr. Zaidi. Given that he has no risk factors, unlikely TB however will get TB gold. At this time, he has not meeting sirs criteria as he has not tachypneic, is tachycardic however this appears to be anxiety induced. Will continue to closely monitor. Lungs are diminished in the left upper lung field otherwise unremarkable examination. No recent travel, surgeries, hospitalizations. Plan: Labs, CT chest, +/- admission Differential Diagnosis Differential Diagnoses: The differential diagnosis associated with the presentation includes Cavitary lesion, mass, pneumonia, lung abscess Admission/Observation Consideration of admission/observation: Escalation of care including admission/observation considered Patient requiring higher level of care secondary to CT scan findings. Consult Healthcare Provider Management of the patient was discussed with: Hospitalist Lab Data MDM Lab Attestation statement: I reviewed the patient's lab results. Slight leukocytosis at 12.7, troponin less than 2.7. 12/31/23 12:24 12/31/23 12:24 Labs: Lab Results 12/31/23 12/31/23 12/31/23 Range/Units 12:23 12:24 19:52 WBC 12.7 H (4.8-10.8) X10*3/uL RBC 5.28 (4.60-5.80) X10*6/uL Hgb 14.7 (14.0-18.0) g/dl Hct 43.7 (42.0-52.0) % MCV 82.8 (80.0-98.0) fL MCH 27.8 (27.0-33.0) pg MCHC 33.6 (31.0-36.0) g/dl RDW 12.1 (11.0-16.0) % Plt Count 407 H D (160-400) X10*3/uL MPV 9.7 (9.4-12.4) fL Immature Gran % (Auto) 0.3 (0.0-0.4) % Neut % (Auto) 64.3 (45-73) % Lymph % (Auto) 19.7 L (20-40) % [place] % (Auto) 12.1 H (2-11) % Eos % (Auto) 2.9 (0-4) % Baso % (Auto) 0.7 (0-2) % Lymph # (Auto) 2.5 (1.2-4.9) X10*3/uL [place] # (Auto) 1.5 H (0.1-1.2) X10*3/uL Eos # (Auto) 0.4 (0.0-0.4) X10*3/uL Baso # (Auto) 0.1 (0.0-0.2) X10*3/uL Abs Immat Gran (auto) 0.04 H (0.00-0.03) X10*3/uL Absolute Neuts (auto) 8.2 (2.0-8.3) x10*3/uL Absolute Nucleated RBC 0.000 (0.0-0.012) X10*3/uL Nucleated RBC % (auto) 0.0 (0.0-0.2) /100WBC Smear Tech's Comments VERIFIED Sodium 138 (135-145) mmol/L Potassium 3.6 (3.3-5.1) mmol/L Chloride 103 (96-108) mmol/L Carbon Dioxide 26 (22-29) mmol/L Anion Gap 13 (12-20) BUN 14 (9-16) mg/dL Creatinine 1.24 (0.5-1.4) mg/dL Estim Creat Clear Calc 82.7 Estimated GFR > 60 Random Glucose 246 H (60-115) mg/dL Lactic Acid 1.0 0.9 (0.5-2.0) mmol/L Calcium 9.5 (8.4-10.2) mg/dL Total Bilirubin 0.8 (0.0-1.0) mg/dL AST 12 (5-37) U/L ALT 17 (0-40) U/L Alkaline Phosphatase 81 (39-117) U/L Troponin I High Sens < 2.7 (<3.5-35.0) ng/L Total Protein 7.6 (6.5-8.0) g/dL Albumin 3.5 (3.5-5.0) g/dL Influenza Type A (PCR) NEGATIVE (Negative) Influenza Type B (PCR) NEGATIVE (Negative) RSV RNA Qual (PCR) NEGATIVE (Negative) SARS-CoV-2 RNA (RT-PCR) NEGATIVE (Negative) Independent Interpretation I performed an independent interpretation of an: EKG Interpretation: EKG sinus tachycardic at 120 beats per minute, ST elevation or depression. QT QTC 346/489 Radiology Impression Discussion of test interpretation with radiology: I have reviewed the radiologist's reading. Radiologist Impression: CT/CT chest w IV con IMPRESSION: 1. Within the periphery of the left upper lobe, there is a cavitary masslike lesion measuring 5.2 x 6.7 x 6.9 cm with surrounding groundglass and consolidative components. Differential considerations would include an infectious/inflammatory process such as cavitary pneumonia, septic emboli, however, underlying malignancy is not excluded. Tuberculosis could also have this appearance, correlate with clinical history. 2. Additional patchy peripheral centrilobular opacities in the periphery of the left lower lobe and in the right lung base. 3. Splenomegaly. Fleischner guidelines were followed. Dictated By: Ed Celeste MD Discharge Plan Discharge Clinical Impression: Cavitary lesion of lung Patient Disposition: Admitted As Inpatient
[2023-12-31 19:56] VITALS: BP 129/84; PULSE 115; RESP 16; TEMP 37; O2SAT 96
[2023-12-31 20:20] LABS: Lactic Acid 0.9 mmol/L (0.5-2.0)
--- NOTE | 2023-12-31 20:22 | PM.IMHP ---
History of Present Illness Date of Service: 12/31/23 Attending physician on admission: Earle Chacon Chief Complaint: abn chest xr, cough, sob 33-year-old male with history of [id number] type 2 diabetes, inflammatory bowel disease presents to the ED at the recommendation of urgent care for evaluation of a cavitary lesion seen on chest x-ray. The patient reports that about 1 week ago developed nasal congestion, nonproductive cough and was starting to feel better. However, on went camping and developed pleuritic chest pain and dyspnea with productive cough with clear sputum production. Denies fevers, night sweats, shaking chills, sore throat, abdominal pain, nausea, vomiting, diarrhea, urinary symptoms, lightheadedness, syncope, palpitations. He denies any homelessness, travel outside of the country, drug use. He did just travel to [facility] for camping, but otherwise no travel. 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 No one sick at home. Has had about a 15 pound weight loss since july but attributes this to metformin use and better eating habits as he has been working to control his diabetes (a1c 10--> 7.1% most recently). Since arrival, patient has been tachycardic to 115 but vitals otherwise stable, afebrile no hypoxia. There is a leukocytosis of 12.7 renal function and electrolyte normal. Lactic acid 1.0, repeat 0.9. Blood cultures are pending. Negative for COVID-19, RSV, influenza. T spot pending. Chest CT shows cavitary masslike lesion in the left upper lobe measuring 5.2 x 6.7 x 6.9 cm with surrounding ground-glass and consolidative components differentials to include infectious/inflammatory process such as cavitary pneumonia, septic emboli, however underlying malignancy can not be excluded. Tuberculosis could also have this appearance. Review of Systems Review of Systems: Yes all other systems are reviewed and are negative [facility] Medical History Inflammatory bowel disease (Crohn's disease) Type 2 diabetes mellitus without complications Acute iritis Surgical History No pertinent past surgical history Social History Housing: House Alcohol intake: current Alcohol intake frequency: holidays/special occasions only Patient Tobacco Use Status: Never used Tobacco e-Cigarette/Vaping Use: Never Used Second Hand Smoke Exposure: No Advance Directives: No Advance Directives Information Provided: Yes Do you have a plan to hurt others: No Plan service: No Current occupational status: employed Cognitive needs: No Hearing needs: No Vision needs: Yes (glasses) Meds Allergies Allergy/AdvReac Type Severity Reaction Status Date / Time mercaptopurine AdvReac Intermediate pancreatiti Verified 12/31/23 12:13 s Active Medications: Current Medications Acetaminophen (Acetaminophen 325 Mg Tablet) 650 mg PO Q6H PRN PRN Reason: Pain, Mild (Pain Scale 1-3), fever or headache Calcium Carbonate (Calcium Carbonate 750 Mg Tab.Chew) 750 mg PO Q4H PRN PRN Reason: Heartburn Enoxaparin Sodium (Enoxaparin Sodium 40 Mg/0.4 Ml Syringe) 40 mg SUBCUT Q24H DENY Glucose (Glucose Gel 15 Gm Gel..Gram.) 15 gm PO Q15M PRN; Protocol PRN Reason: per Hypoglycemia Standing Ord. Sodium Chloride (Ns) 1,000 mls @ 999 mls/hr IV .Q1H1M ONE Stop: 12/31/23 20:30 Vancomycin HCl 1,000 mg/Vancomycin HCl 750 mg/ Sodium Chloride 535 mls @ 267.5 mls/hr IV ONCE ONE Stop: 12/31/23 22:29 Piperacillin Sod/Tazobactam (Sod 4.5 gm/ Sodium Chloride) 100 mls @ 200 mls/hr IV Q6H DENY Dextrose (D10) 250 mls @ 750 mls/hr IV Q15M PRN; Protocol PRN Reason: per Hypoglycemia Standing Ord. Insulin Human Lispro (Insulin Lispro 100 Unit/Ml 3 Ml Vial) 0 unit SUBCUT QIDACHS DENY; Protocol Magnesium Hydroxide (Milk Of Magnesia 30 Ml Oral.Susp) 30 ml PO DAILY PRN PRN Reason: Constipation Melatonin (Melatonin 3 Mg Tablet) 6 mg PO BEDTIME PRN PRN Reason: Insomnia Pharmacy Consult (Consult Rx Vancomycin Dosing) 1 each MISCELLANE DAILY PRN PRN Reason: Consult order Sodium Chloride (0.9 % Sodium Chloride Flush 3 Ml Syringe) 3 ml IVFLUSH QSHIFT [facility] Home Medications ?Medication ?Instructions ?Recorded ?Confirmed ?Last Taken ?Type benzonatate 200 mg capsule 200 mg PO Q8H PRN Cough 12/31/23 12/31/23 12/31/23 History fluticasone propionate 50 2 spray intranasal DAILY 12/31/23 12/31/23 12/31/23 History mcg/actuation nasal spray,suspension Physical Exam Vital Signs and Narrative: Vital Signs: Last Vital Signs Temp 98.6 F 12/31/23 19:56 Pulse 115 H 12/31/23 19:56 Resp 16 12/31/23 19:56 BP 129/84 12/31/23 19:56 Pulse Ox 96 12/31/23 19:56 O2 Del Method Room Air 12/31/23 19:56 BMI result Body Mass Index 22.0 Constitutional - Awake and Alert, No apparent distress Eyes - PERRLA, EOMI Cardiovascular - S1S2, RRR, No edema Respiratory - Normal lung expansion, Normal respiratory effort, No respiratory distress, CTA bilaterally Gastrointestinal - NT / ND; +BS; No rebound or guarding Extremities - no calf tenderness bilaterally, no swelling Skin - Warm/Dry Neurological - Alert & oriented x3 Psychological - Appropriate affect Results Labs 12/31/23 12:24 12/31/23 12:24 Labs: Laboratory Results - last 24 hr 12/31/23 12/31/23 12/31/23 12:23 12:24 19:52 MCV 82.8 MCH 27.8 MCHC 33.6 RDW 12.1 Plt Count 407 H D MPV 9.7 Immature Gran % (Auto) 0.3 Neut % (Auto) 64.3 Lymph % (Auto) 19.7 L [place] % (Auto) 12.1 H Eos % (Auto) 2.9 Baso % (Auto) 0.7 Lymph # (Auto) 2.5 [place] # (Auto) 1.5 H Eos # (Auto) 0.4 Baso # (Auto) 0.1 Abs Immat Gran (auto) 0.04 H Absolute Neuts (auto) 8.2 Absolute Nucleated RBC 0.000 Nucleated RBC % (auto) 0.0 Smear Tech's Comments VERIFIED Anion Gap 13 Estim Creat Clear Calc 82.7 Estimated GFR > 60 Random Glucose 246 H Lactic Acid 1.0 0.9 Calcium 9.5 Total Bilirubin 0.8 AST 12 ALT 17 Alkaline Phosphatase 81 Troponin I High Sens < 2.7 Total Protein 7.6 Albumin 3.5 Influenza Type A (PCR) NEGATIVE Influenza Type B (PCR) NEGATIVE RSV RNA Qual (PCR) NEGATIVE SARS-CoV-2 RNA (RT-PCR) NEGATIVE Imaging Radiologist's Impressions: Impressions Chest CT 12/31/23 16:10 IMPRESSION: 1. Within the periphery of the left upper lobe, there is a cavitary masslike lesion measuring 5.2 x 6.7 x 6.9 cm with surrounding groundglass and consolidative components. Differential considerations would include an infectious/inflammatory process such as cavitary pneumonia, septic emboli, however, underlying malignancy is not excluded. Tuberculosis could also have this appearance, correlate with clinical history. 2. Additional patchy peripheral centrilobular opacities in the periphery of the left lower lobe and in the right lung base. 3. Splenomegaly. Fleischner guidelines were followed. Assessment and Plan (1) Cavitary lesion of lung: Status: Acute Plan 33-year-old male with history of [id number] type 2 diabetes, inflammatory bowel disease admitted for further management of suspected cavitary pneumonia #Acute SARITA cavitary lesion- cavitary pneumonia suspected with sepsis -Chest CT shows cavitary masslike lesion in the left upper lobe measuring 5.2 x 6.7 x 6.9 cm with surrounding ground-glass and consolidative components differentials to include infectious/inflammatory process such as cavitary pneumonia, septic emboli, however underlying malignancy can not be excluded. Tuberculosis could also have this appearance. -given recent URI symptoms, leukocytosis 12.7, tachycardia consistent with sepsis, suspect infectious etiology -Low risk for TB, however TB spot pending. Continue airborne precautions for now -Low suspicion for fungal pneumonia -cover with IV zosyn and vanco for now (initiated 12/30) -check RPP -check sputum culture, strep antigen, Legionella antigen, MRSA nasal swab -check hiv -infectious disease consult -duonebs, cough syrup prn -follow cbc/cultures # [id number] type 2 diabetes -POC glucose, diabetic diet -Humalog on sliding scale -hold metformin, Jardiance # inflammatory bowel disease -no acute flare, not on home medications DVT prophylaxis-Lovenox Full code Patient requires inpatient stay at least 2 midnights for management of suspected cavitary pneumonia with sepsis requiring IV antibiotics and expert consultation on tb precautions until ruled out Quality Stroke Does the patient have a stroke diagnosis?: No VTE Prior VTE?: No VTE Risk Level:: Medical - moderate - high VTE Device Contraindication: Treatment Not Indicated VTE Drug Contraindication: N/A - Med Ordered
[2023-12-31] MEDS: Piperacillin Sodium/Tazobactam 3.375 GM in 0.9 % Sodium Chloride 50 ML IV (20:23)
[2023-12-31] MEDS: 0.9 % Sodium Chloride 1,000 ML 999 ML IV (20:28)
--- NOTE | 2023-12-31 20:36 | PHA.MEDREC ---
Pharmacy Consult ? Medication Reconciliation Pharmacy has completed the medication reconciliation. Spoke to patient to confirm med list. Patent states his stopped Metformin hcl 500 mg daily about a week and a half a go because it gave him severe diarrhea that wont stop, and he still has today.
[2023-12-31 20:56] LABS: Glucose, Whole Blood 114 mg/dL (60-115)
--- NOTE | 2023-12-31 21:19 | MHC.EDTECH ---
Patient said he felt a bit shaky ,had a sandwich and david laura for snack .
[2023-12-31] MEDS: vancomycin HCL 1,000 MG, vancomycin HCL 750 MG in 0.9 % Sodium Chloride 500 ML 267.5 MG IV (21:29)
[2023-12-31 21:51] VITALS: BP 129/84; PULSE 105; RESP 16; TEMP 37; O2SAT 98
--- NOTE | 2023-12-31 21:54 | PHA.PROG ---
Admission Date/Time: December 31, 2023 20:16 Indication: RESP INF Weight in k.7 kg Adjusted body weight in K.6 KG Liscomb body weight in K KG Obesity Dosing Indication % IBW: Serum Creatinine - Last 168 Hours 12/31/23 12:24 Creatinine 1.24 Estimated CrCl and GFR - Last 168 Hours 12/31/23 12:24 Estim Creat Clear Calc 82.7 Estimated GFR > 60 Vancomycin Loading Dose: 1750 MG Current Vancomycin Dosing Regimen: 1000 MG Q12H Vancomycin Monitoring using AUC goal of 400 - 600 range with trough as surrogate marker: PREDICTED AUC 588 Date and Time for next Vancomycin Level to be drawn: RANDOM BEFORE 3RD DOSE 01/01/24 @1900 Pharmacist Comments on Vancomycin Plan: Vancomycin dosing will take advantage of [employer] as a clinical decision support tool that uses Bayesian modeling to calculate individual patient's pharmacokinetic parameters and forecast the patient's drug concentration time course with the target goal AUC 24 range of 400 - 600 mg/L/hr.
--- NOTE | 2023-12-31 22:53 | PC.NURSE ---
report given to SHIN Husain in over flow
[2024-01-01] MEDS: Piperacillin Sodium/Tazobactam 4.5 GM in 0.9 % Sodium Chloride 100 ML IV ×4 (01:48→22:28)
[2024-01-01] MEDS: 0.9 % Sodium Chloride Flush 3 ML SYRINGE IVFLUSH ×4 (01:49→21:11)
[2024-01-01 05:43] LABS: MANUAL DIFF FLAG NO
[2024-01-01 05:44] LABS: Basophils Absolute Auto 0.1 X10*3/uL (0.0-0.2); Eosinophils Absolute Auto 0.5 X10*3/uL (0.0-0.4); Eosinophils Percent Auto 5.2 % (0-4); Hemoglobin 13.1 g/dl (14.0-18.0); Imm Gran Abs Auto 0.04 X10*3/uL (0.00-0.03); Imm Gran Pct Auto 0.4 % (0.0-0.4); Lymphocytes Absolute Auto 1.9 X10*3/uL (1.2-4.9); Lymphocytes Percent Auto 17.9 % (20-40); Mean Corpuscular HGB Conc 34.5 g/dl (31.0-36.0); Mean Corpuscular Hemoglobin 28.5 pg (27.0-33.0); Mean Corpuscular Volume 82.6 fL (80.0-98.0); Mean Platelet Volume 9.8 fL (9.4-12.4); Monocytes Absolute Auto 1.2 X10*3/uL (0.1-1.2); Monocytes Percent Auto 11.7 % (2-11); Neutrophils Absolute Auto 6.7 x10*3/uL (2.0-8.3); Neutrophils Percent Auto 63.8 % (45-73); Platelet Count 347 X10*3/uL (160-400); White Blood Count 10.4 X10*3/uL (4.8-10.8)
[2024-01-01 06:04] LABS: Anion Gap 13 (12-20); Blood Urea Nitrogen 11 mg/dL (9-16); Calcium 8.6 mg/dL (8.4-10.2); Carbon Dioxide 20 mmol/L (22-29); Chloride 111 mmol/L (96-108); Estimated Glomerular Filt Rate > 60; Glucose Random 142 mg/dL (60-115); Potassium 3.2 mmol/L (3.3-5.1); Sodium 141 mmol/L (135-145)
[2024-01-01 06:09] VITALS: BP 106/66; PULSE 93; RESP 18; TEMP 37; O2SAT 98
--- NOTE | 2024-01-01 06:50 | PC.NURSE ---
Patient admitted to overflow overnight. A&O x4, walks independently , vital signs stable.
[2024-01-01 07:50] LABS: Glucose, Whole Blood 144 mg/dL (60-115)
[2024-01-01 08:23] LABS: HIV AB/AG Nonreactive (Nonreactive); HIV Num 1 0.35 S/CO (0.00-0.99)
[2024-01-01 08:48] LABS: MRSA Nasal PCR NEGATIVE (Negative); SA Nasal PCR POSITIVE (Negative)
[2024-01-01 10:12] LABS: Adenovirus PCR Not Detected (Not Detect.); Bordetella parapertussis PCR Not Detected (Not Detect.); Bordetella pertussis PCR Not Detected (Not Detect.); Chlamydia pneumoniae PCR Not Detected (Not Detect.); Coronavirus 229E PCR Not Detected (Not Detect.); Coronavirus HKU1 PCR Not Detected (Not Detect.); Coronavirus NL63 PCR Not Detected (Not Detect.); Coronavirus OC43 PCR Not Detected (Not Detect.); Human metapneumovirus PCR Not Detected (Not Detect.); Influenza A PCR Not Detected (Not Detect.); Influenza B PCR Not Detected (Not Detect.); Mycoplasma pneumoniae PCR Not Detected (Not Detect.); Parainfluenza 1 PCR Not Detected (Not Detect.); Parainfluenza 2 PCR Not Detected (Not Detect.); Parainfluenza 3 PCR Not Detected (Not Detect.); Parainfluenza 4 PCR Not Detected (Not Detect.); RSV PCR Not Detected (Not Detect.); Rhino/Enterovirus PCR Not Detected (Not Detect.)
[2024-01-01 10:40] LABS: SARS-CoV-2 PCR Not Detected (Not Detect.)
[2024-01-01 11:41] VITALS: BP 130/71; PULSE 99; RESP 16; TEMP 36.9; O2SAT 98
--- NOTE | 2024-01-01 11:55 | MHC.CM.PN ---
CM met with Patient at bedside. 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 Home/self care is the goal and CM has initiated and will follow for dc planning. Patient's PCP is Dr. Brian Ramirez.
[2024-01-01] MEDS: vancomycin HCL 1,000 MG in 0.9 % Sodium Chloride 250 ML 270 MG IV ×2 (12:05→23:11)
[2024-01-01 12:15] LABS: Glucose, Whole Blood 163 mg/dL (60-115)
[2024-01-01] MEDS: Insulin Lispro 100 UNIT/ML 3 ML VIAL SUBCUT ×3 (12:29→21:10)
--- NOTE | 2024-01-01 14:07 | PM.CNPUL ---
History of Present Illness History of Present Illness Consult date: 01/01/24 Chief complaint: Pneumonia, cavity lesion Narrative: 33-year-old gentleman with underlying history of IBD and diabetes mellitus admitted on 12/31/2023 with 2 week history of cough and slowly worsening left-sided pleuritic pain. Patient also admits to approximately 15 lb weight loss over 5 months that he attributes to improve diet and attempts to control his diabetes mellitus. His CT scan demonstrated left upper lobe 7 x 7 cavitary lesion. Patient was started on empiric antibiotics. His nasal screen is MSSA positive. Review of Systems Constitutional: Constitutional: Denies daytime sleepiness, Denies excessive sweating, Denies fatigue, Denies fever(s), Denies lethargy, Denies malaise, Denies night sweats, Denies snoring and Reports weight loss Eyes: Eyes: Denies blurry vision and Denies itchy eyes ENT: Denies nasal congestion, Denies post nasal drip, Denies sinus pain, Denies sinus pressure and Denies other ( Thrush) Cardiovascular: Cardiovascular: Denies chest pain, Denies pedal edema, Denies dyspnea, Denies orthopnea and Denies paroxysmal nocturnal dyspnea Respiratory: Respiratory: Denies cough, Denies hemoptysis, Denies excessive phlegm production, Denies dyspnea, Denies snoring and Denies wheezing Gastrointestinal: Gastrointestinal: Denies abdominal pain and Denies heartburn Musculoskeletal: Musculoskeletal: Denies myalgias, Denies arthralgias and Denies joint swelling Integumentary/Breasts: Skin/Breast: Denies rash Neurologic: Denies memory loss and Denies seizure-like activity Psychiatric: Psychiatric: Denies abnormal sleep pattern, Denies anxiety and Denies memory loss Endocrine: Endocrine: Denies excessive sweating, Denies fatigue and Denies heat intolerance Hematologic/Lymphatic: Hematologic/Lymphatic: Denies easy bruising Allergic/Immunologic: Allergic/Immunologic: Denies itchy eyes, Denies seasonal rhinorrhea and Denies wheezing PMFSH Past Medical History Medical History Inflammatory bowel disease (Crohn's disease) Type 2 diabetes mellitus without complications Acute iritis Surgical History Surgical History No pertinent past surgical history Social History Social History Household Members: Other Household Members Other:: PARENTS AND BROTHER Housing: House Alcohol intake: current Alcohol intake frequency: holidays/special occasions only Patient Tobacco Use Status: Never used Tobacco e-Cigarette/Vaping Use: Never Used Second Hand Smoke Exposure: No service: No Current occupational status: employed Cognitive needs: No Hearing needs: No Vision needs: Yes (glasses) Meds Allergies Allergy/AdvReac Type Severity Reaction Status Date / Time mercaptopurine AdvReac Intermediate pancreatiti Verified 12/31/23 12:13 s Active Medications: Current Medications Acetaminophen (Acetaminophen 325 Mg Tablet) 650 mg PO Q6H PRN PRN Reason: Pain, Mild (Pain Scale 1-3), fever or headache Albuterol/Ipratropium (Albuterol/Iprat 2.5/0.5mg 3 Ml Ampul.Neb) 3 ml INHALE RQ4H WHILE AWAKE PRN PRN Reason: Shortness of Breath/Wheezing Calcium Carbonate (Calcium Carbonate 750 Mg Tab.Chew) 750 mg PO Q4H PRN PRN Reason: Heartburn Enoxaparin Sodium (Enoxaparin Sodium 40 Mg/0.4 Ml Syringe) 40 mg SUBCUT Q24H DENY Last Admin: 12/31/23 21:40 Dose: Not Given Glucose (Glucose Gel 15 Gm Gel..Gram.) 15 gm PO Q15M PRN; Protocol PRN Reason: per Hypoglycemia Standing Ord. Guaifenesin (Guaifenesin 200 Mg/10 Ml 10 Ml Liquid) 10 ml PO Q4H PRN PRN Reason: Cough Dextrose (D10) 250 mls @ 750 mls/hr IV Q15M PRN; Protocol PRN Reason: per Hypoglycemia Standing Ord. Piperacillin Sod/Tazobactam (Sod 4.5 gm/ Sodium Chloride) 100 mls @ 200 mls/hr IV Q6H DENY Vancomycin HCl 1,000 mg/ (Sodium Chloride) 270 mls @ 270 mls/hr IV Q12H DENY Insulin Human Lispro (Insulin Lispro 100 Unit/Ml 3 Ml Vial) 0 unit SUBCUT QIDACHS DENY; Protocol Last Admin: 01/01/24 12:29 Dose: 2 unit Magnesium Hydroxide (Milk Of Magnesia 30 Ml Oral.Susp) 30 ml PO DAILY PRN PRN Reason: Constipation Melatonin (Melatonin 3 Mg Tablet) 6 mg PO BEDTIME PRN PRN Reason: Insomnia Pharmacy Consult (Consult Rx Vancomycin Dosing) 1 each MISCELLANE DAILY PRN PRN Reason: Consult order Sodium Chloride (0.9 % Sodium Chloride Flush 3 Ml Syringe) 3 ml IVFLUSH QSHIFT [facility] Last Admin: 01/01/24 12:04 Dose: 3 ml Home Medications ?Medication ?Instructions ?Recorded ?Confirmed ?Last Taken ?Type benzonatate 200 mg capsule 200 mg PO Q8H PRN Cough 12/31/23 12/31/23 12/31/23 History fluticasone propionate 50 2 spray intranasal DAILY 12/31/23 12/31/23 12/31/23 History mcg/actuation nasal spray,suspension Physical Exam Vital Signs: Vital Signs: Last Vital Signs Temp 98.4 F 01/01/24 11:41 Pulse 99 01/01/24 11:41 Resp 16 01/01/24 11:41 BP 130/71 01/01/24 11:41 Pulse Ox 98 01/01/24 11:41 O2 Del Method Room Air 01/01/24 11:41 O2 Flow Rate 99 01/01/24 11:41 BMI result Body Mass Index 22.0 Const: General: no acute distress and alert Nutritional Appearance: not obese Orientation/consciousness: Other orientation findings ( oriented) HEENT: Head: Yes atraumatic Eyes: General: appearance normal, both eyes and all related structures Sclerae: sclerae normal EOM: EOMs intact bilaterally Neck: Neck: Yes supple Lymphatic: no lymphadenopathy noted Resp: Effort & Inspection: normal respiratory effort and no use of accessory muscles Auscultation: clear to auscultation bilaterally Cardio: Rate: regular rate Rhythm: regular rhythm Heart sounds: no gallops, no murmurs and no rubs Skin: General skin exam: other ( warm) Extrem: General: No clubbing, No cyanosis and No edema Results Laboratory Findings 01/01/24 05:09 01/01/24 05:09 Abnormal lab findings: Abnormal Labs 12/31/23 12/31/23 01/01/24 12:24 20:33 05:09 WBC 12.7 H Hgb 13.1 L Hct 38.0 L Plt Count 407 H D Lymph % (Auto) 19.7 L 17.9 L [place] % (Auto) 12.1 H 11.7 H Eos % (Auto) 5.2 H [place] # (Auto) 1.5 H Eos # (Auto) 0.5 H Abs Immat Gran (auto) 0.04 H 0.04 H Potassium 3.2 L Chloride 111 H Carbon Dioxide 20 L POC Glucose Random Glucose 246 H 142 H Nasal S. aureus Screen POSITIVE A 01/01/24 01/01/24 07:47 12:08 WBC Hgb Hct Plt Count Lymph % (Auto) [place] % (Auto) Eos % (Auto) [place] # (Auto) Eos # (Auto) Abs Immat Gran (auto) Potassium Chloride Carbon Dioxide POC Glucose 144 H 163 H Random Glucose Nasal S. aureus Screen Assessment and Plan (1) Cavitary lesion of lung: Status: Acute Plan Impression: 33-year-old gentleman with cavitary lesion that is likely secondary to cavitary pneumonia, though tuberculosis can not be excluded at this time. Nasal screen is positive for MSSA. Recommendations: Rule out TB with induced sputum for 3 smears. Empiric coverage for cavitary MSSA pneumonia with cephalosporins. When TB ruled out, patient will require four-week of antistaphylococcal therapy and pulmonary follow-up with CT chest. Procedures Date of Service Date of Service: 01/01/24
[2024-01-01 16:00] VITALS: BP 126/72; PULSE 90; RESP 18; TEMP 37.1; O2SAT 100
[2024-01-01 16:25] LABS: Glucose, Whole Blood 160 mg/dL (60-115)
--- NOTE | 2024-01-01 18:17 | P.PNIM_ITS ---
Subjective Subjective Date of Service: 01/01/24 Interval History: f/u on cavitary PNA breathing is better, sating 100 on room Physical Exam 2 Vital Signs: Vital Signs: Last Vital Signs Temp 98.8 F 01/01/24 16:00 Pulse 90 01/01/24 16:00 Resp 18 01/01/24 16:00 BP 126/72 01/01/24 16:00 Pulse Ox 100 01/01/24 16:00 O2 Del Method Room Air 01/01/24 16:00 O2 Flow Rate 99 01/01/24 11:41 BMI result Body Mass Index 22.0 General: AO X 3, no acute distress, Resp: CTA bilateral CVS: S1,S2,RRR GI: +BS, NT, no distention Skin: No rash Neuro: motor grossly intact Psych: appropriate affect Objective Data Active Medications Acetaminophen (Acetaminophen 325 Mg Tablet) 650 mg PO Q6H PRN PRN Reason: Pain, Mild (Pain Scale 1-3), fever or headache Albuterol/Ipratropium (Albuterol/Iprat 2.5/0.5mg 3 Ml Ampul.Neb) 3 ml INHALE RQ4H WHILE AWAKE PRN PRN Reason: Shortness of Breath/Wheezing Calcium Carbonate (Calcium Carbonate 750 Mg Tab.Chew) 750 mg PO Q4H PRN PRN Reason: Heartburn Enoxaparin Sodium (Enoxaparin Sodium 40 Mg/0.4 Ml Syringe) 40 mg SUBCUT Q24H [facility] Last Admin: 12/31/23 21:40 Dose: Not Given Documented By: ANDREA Non-Admin Reason: Patient Asleep Glucose (Glucose Gel 15 Gm Gel..Gram.) 15 gm PO Q15M PRN; Protocol PRN Reason: per Hypoglycemia Standing Ord. Guaifenesin (Guaifenesin 200 Mg/10 Ml 10 Ml Liquid) 10 ml PO Q4H PRN PRN Reason: Cough Dextrose (D10) 250 mls @ 750 mls/hr IV Q15M PRN; Protocol PRN Reason: per Hypoglycemia Standing Ord. Piperacillin Sod/Tazobactam (Sod 4.5 gm/ Sodium Chloride) 100 mls @ 200 mls/hr IV Q6H [facility] Last Infusion: 01/01/24 17:43 Dose: Infused Documented By: MONIKA Vancomycin HCl 1,000 mg/ (Sodium Chloride) 270 mls @ 270 mls/hr IV Q12H [facility] Insulin Human Lispro (Insulin Lispro 100 Unit/Ml 3 Ml Vial) 0 unit SUBCUT QIDACHS [facility]; Protocol Last Admin: 01/01/24 17:05 Dose: 2 unit Documented By: MONIKA Magnesium Hydroxide (Milk Of Magnesia 30 Ml Oral.Susp) 30 ml PO DAILY PRN PRN Reason: Constipation Melatonin (Melatonin 3 Mg Tablet) 6 mg PO BEDTIME PRN PRN Reason: Insomnia Pharmacy Consult (Consult Rx Vancomycin Dosing) 1 each MISCELLANE DAILY PRN PRN Reason: Consult order Sodium Chloride (0.9 % Sodium Chloride Flush 3 Ml Syringe) 3 ml IVFLUSH QSHIFT [facility] Last Admin: 01/01/24 17:05 Dose: 3 ml Documented By: MONIKA Labs 01/01/24 05:09 01/01/24 05:09 Labs: Laboratory Results - last 24 hr 12/31/23 12/31/23 12/31/23 19:52 20:33 20:38 MCV MCH MCHC RDW Plt Count MPV Immature Gran % (Auto) Neut % (Auto) Lymph % (Auto) [place] % (Auto) Eos % (Auto) Baso % (Auto) Lymph # (Auto) [place] # (Auto) Eos # (Auto) Baso # (Auto) Abs Immat Gran (auto) Absolute Neuts (auto) Absolute Nucleated RBC Nucleated RBC % (auto) Anion Gap Estim Creat Clear Calc Estimated GFR POC Glucose Random Glucose Lactic Acid 0.9 Calcium Nasal Screen MRSA (PCR) NEGATIVE Nasal S. aureus Screen POSITIVE A Nasal MRSA/S.aureus Interp SEE NOTE Respiratory Panel Bai See Note Adenovirus (Rapid PCR) Not Detected B.pert (TEM-PCR) Not Detected B.parapertussis DNA PCR Not Detected C. pneumoniae DNA (PCR) Not Detected Coronavirus OC43 (PCR) Not Detected Coronavirus HKU1 (PCR) Not Detected Coronavirus 229E (PCR) Not Detected Coronavirus NL63 (PCR) Not Detected HIV 1&2 Ab/P24 Ag 4thGn Human Metapneumovir PCR Not Detected Influenza A (RT-PCR) Not Detected Influenza B (RT-PCR) Not Detected M. pneumoniae (PCR) Not Detected Parainfluenza 1 (PCR) Not Detected Parainfluenza 2 (PCR) Not Detected Parainfluenza 3 (PCR) Not Detected Parainfluenza 4 (PCR) Not Detected RSV (PCR) Not Detected Entero/Rhino (PCR) Not Detected SARS-CoV-2 RNA (RT-PCR) Not Detected 12/31/23 12/31/23 01/01/24 20:40 20:52 05:09 MCV 82.6 MCH 28.5 MCHC 34.5 RDW 12.0 Plt Count 347 MPV 9.8 Immature Gran % (Auto) 0.4 Neut % (Auto) 63.8 Lymph % (Auto) 17.9 L [place] % (Auto) 11.7 H Eos % (Auto) 5.2 H Baso % (Auto) 1.0 Lymph # (Auto) 1.9 [place] # (Auto) 1.2 Eos # (Auto) 0.5 H Baso # (Auto) 0.1 Abs Immat Gran (auto) 0.04 H Absolute Neuts (auto) 6.7 Absolute Nucleated RBC 0.000 Nucleated RBC % (auto) 0.0 Anion Gap 13 Estim Creat Clear Calc 114.0 Estimated GFR > 60 POC Glucose 114 Random Glucose 142 H Lactic Acid Calcium 8.6 D Nasal Screen MRSA (PCR) Nasal S. aureus Screen Nasal MRSA/S.aureus Interp Respiratory Panel Bai Adenovirus (Rapid PCR) B.pert (TEM-PCR) B.parapertussis DNA PCR C. pneumoniae DNA (PCR) Coronavirus OC43 (PCR) Coronavirus HKU1 (PCR) Coronavirus 229E (PCR) Coronavirus NL63 (PCR) HIV 1&2 Ab/P24 Ag 4thGn Nonreactive Human Metapneumovir PCR Influenza A (RT-PCR) Influenza B (RT-PCR) M. pneumoniae (PCR) Parainfluenza 1 (PCR) Parainfluenza 2 (PCR) Parainfluenza 3 (PCR) Parainfluenza 4 (PCR) RSV (PCR) Entero/Rhino (PCR) SARS-CoV-2 RNA (RT-PCR) 01/01/24 01/01/24 01/01/24 07:47 12:08 16:17 MCV MCH MCHC RDW Plt Count MPV Immature Gran % (Auto) Neut % (Auto) Lymph % (Auto) [place] % (Auto) Eos % (Auto) Baso % (Auto) Lymph # (Auto) [place] # (Auto) Eos # (Auto) Baso # (Auto) Abs Immat Gran (auto) Absolute Neuts (auto) Absolute Nucleated RBC Nucleated RBC % (auto) Anion Gap Estim Creat Clear Calc Estimated GFR POC Glucose 144 H 163 H 160 H Random Glucose Lactic Acid Calcium Nasal Screen MRSA (PCR) Nasal S. aureus Screen Nasal MRSA/S.aureus Interp Respiratory Panel Bai Adenovirus (Rapid PCR) B.pert (TEM-PCR) B.parapertussis DNA PCR C. pneumoniae DNA (PCR) Coronavirus OC43 (PCR) Coronavirus HKU1 (PCR) Coronavirus 229E (PCR) Coronavirus NL63 (PCR) HIV 1&2 Ab/P24 Ag 4thGn Human Metapneumovir PCR Influenza A (RT-PCR) Influenza B (RT-PCR) M. pneumoniae (PCR) Parainfluenza 1 (PCR) Parainfluenza 2 (PCR) Parainfluenza 3 (PCR) Parainfluenza 4 (PCR) RSV (PCR) Entero/Rhino (PCR) SARS-CoV-2 RNA (RT-PCR) Assessment and Plan (1) Cavitary lesion of lung: Status: Acute Plan 33-year-old male with history of [id number] type 2 diabetes, inflammatory bowel disease admitted for further management of suspected cavitary pneumonia #Acute SARITA cavitary lesion- cavitary, necrotic pneumonia. no risk of TC -Chest CT shows cavitary masslike lesion in the left upper lobe measuring 5.2 x 6.7 x 6.9 cm with surrounding ground-glass and consolidative components differentials to include infectious/inflammatory process such as cavitary pneumonia, septic emboli, however underlying malignancy can not be excluded. Tuberculosis could also have this appearance. -given recent URI symptoms, leukocytosis 12.7, tachycardia consistent with sepsis, suspect infectious etiology -Low suspicion for fungal pneumonia -cover with IV zosyn and vanco for now (initiated 12/30) -check RPP -check sputum culture, strep antigen, Legionella pending, MRSA nasal swab negative but posiive for MSSA - neg hiv -infectious disease consult pending -duonebs, cough syrup prn -follow cbc/cultures -pulmomonology recommends induced sputum, tspot is pending, airborned precaution for ow # [id number] type 2 diabetes -POC glucose, diabetic diet -Humalog on sliding scale -hold metformin, Jardiance # inflammatory bowel disease -no acute flare, not on home medications #mild hypOkalemia--oral k, recheck tomorrow DVT prophylaxis-Lovenox Full code Patient requires inpatient stay at least 2 midnights for management of suspected cavitary pneumonia with sepsis requiring IV antibiotics and expert consultation on tb precautions until ruled out Quality Stroke Does the patient have a stroke diagnosis?: No VTE Prior VTE?: No VTE Risk Level:: Medical - moderate - high VTE Device Contraindication: Treatment Not Indicated VTE Drug Contraindication: N/A - Med Ordered
[2024-01-01] MEDS: Potassium Chloride ER 20 MEQ TAB.ER.PRT 40 MEQ PO (18:35)
[2024-01-01 19:35] VITALS: BP 128/71; PULSE 96; RESP 18; TEMP 37.3; O2SAT 95
[2024-01-01 20:05] LABS: Glucose, Whole Blood 152 mg/dL (60-115)
[2024-01-01] MEDS: Enoxaparin Sodium 40 MG/0.4 ML SYRINGE SUBCUT (21:11)
[2024-01-01 21:30] LABS: Vancomycin Random 14.6 mcg/mL (15-20)
[2024-01-01 23:51] VITALS: BP 115/58; PULSE 81; RESP 16; TEMP 36.4; O2SAT 96
[2024-01-02 04:00] VITALS: BP 115/59; PULSE 75; RESP 16; TEMP 36.3; O2SAT 95
[2024-01-02] MEDS: Piperacillin Sodium/Tazobactam 4.5 GM in 0.9 % Sodium Chloride 100 ML IV ×2 (05:04→10:45)
[2024-01-02 06:18] LABS: Anion Gap 13 (12-20); Blood Urea Nitrogen 10 mg/dL (9-16); Calcium 8.6 mg/dL (8.4-10.2); Carbon Dioxide 20 mmol/L (22-29); Chloride 109 mmol/L (96-108); Creatinine Clr Calc Pharmacy 103.6; Estimated Glomerular Filt Rate > 60; Glucose Random 155 mg/dL (60-115); Potassium 3.9 mmol/L (3.3-5.1); Sodium 138 mmol/L (135-145)
[2024-01-02 07:23] VITALS: BP 110/72; PULSE 88; RESP 17; TEMP 36.6; O2SAT 97
[2024-01-02 07:35] LABS: Glucose, Whole Blood 146 mg/dL (60-115)
[2024-01-02 08:00] VITALS: BP 110/58; PULSE 69; RESP 16; TEMP 36.6; O2SAT 98
--- NOTE | 2024-01-02 08:46 | PC.RT ---
RT unable to perform sputum indution this am. 3% hypertonic saline not avail. Nurse called pharmacy [id number], pt found eating as well. Dr Leyva aware.
[2024-01-02] MEDS: 0.9 % Sodium Chloride Flush 3 ML SYRINGE IVFLUSH ×2 (09:16→16:52)
--- NOTE | 2024-01-02 09:35 | HO.PM.IMPN ---
Subjective Subjective Date of Service: 01/02/24 Interval History: f/u on necrotizing PNA, rule out TB no fever, overall feels better Physical Exam Vital Signs: Vital Signs: Last Vital Signs Temp 98 F 01/02/24 08:00 Pulse 69 01/02/24 08:00 Resp 16 01/02/24 08:00 BP 110/58 L 01/02/24 08:00 Pulse Ox 98 01/02/24 08:00 O2 Del Method Room Air 01/02/24 08:00 O2 Flow Rate 99 01/01/24 11:41 BMI result Body Mass Index 22.0 General: AO X 3, no acute distress, Resp: CTA bilateral CVS: S1,S2,RRR GI: +BS, NT, no distention Skin: No rash Neuro: motor grossly intact Psych: appropriate affect Objective Data Active Medications Acetaminophen (Acetaminophen 325 Mg Tablet) 650 mg PO Q6H PRN PRN Reason: Pain, Mild (Pain Scale 1-3), fever or headache Albuterol/Ipratropium (Albuterol/Iprat 2.5/0.5mg 3 Ml Ampul.Neb) 3 ml INHALE RQ4H WHILE AWAKE PRN PRN Reason: Shortness of Breath/Wheezing Calcium Carbonate (Calcium Carbonate 750 Mg Tab.Chew) 750 mg PO Q4H PRN PRN Reason: Heartburn Enoxaparin Sodium (Enoxaparin Sodium 40 Mg/0.4 Ml Syringe) 40 mg SUBCUT Q24H [facility] Last Admin: 01/01/24 21:11 Dose: 40 mg Documented By: VANESSA Glucose (Glucose Gel 15 Gm Gel..Gram.) 15 gm PO Q15M PRN; Protocol PRN Reason: per Hypoglycemia Standing Ord. Guaifenesin (Guaifenesin 200 Mg/10 Ml 10 Ml Liquid) 10 ml PO Q4H PRN PRN Reason: Cough Dextrose (D10) 250 mls @ 750 mls/hr IV Q15M PRN; Protocol PRN Reason: per Hypoglycemia Standing Ord. Piperacillin Sod/Tazobactam (Sod 4.5 gm/ Sodium Chloride) 100 mls @ 200 mls/hr IV Q6H [facility] Last Infusion: 01/02/24 05:42 Dose: Infused Documented By: VANESSA Vancomycin HCl 1,000 mg/ (Sodium Chloride) 270 mls @ 270 mls/hr IV Q12H [facility] Last Infusion: 01/02/24 00:15 Dose: Infused Documented By: VANESSA Insulin Human Lispro (Insulin Lispro 100 Unit/Ml 3 Ml Vial) 0 unit SUBCUT QIDACHS [facility]; Protocol Last Admin: 01/02/24 07:50 Dose: Not Given Documented By: MONIKA Non-Admin Reason: No Insulin Coverage Magnesium Hydroxide (Milk Of Magnesia 30 Ml Oral.Susp) 30 ml PO DAILY PRN PRN Reason: Constipation Melatonin (Melatonin 3 Mg Tablet) 6 mg PO BEDTIME PRN PRN Reason: Insomnia Pharmacy Consult (Consult Rx Vancomycin Dosing) 1 each MISCELLANE DAILY PRN PRN Reason: Consult order Sodium Chloride (0.9 % Sodium Chloride Flush 3 Ml Syringe) [facility] Last Admin: 01/02/24 09:16 Dose: 3 ml Documented By: MONIKA Labs 01/01/24 05:09 01/02/24 05:29 Labs: Laboratory Results - last 24 hr 12/31/23 01/01/24 01/01/24 20:38 12:08 16:17 Hold Purple Top Anion Gap Estim Creat Clear Calc Estimated GFR POC Glucose 163 H 160 H Random Glucose Calcium Random Vancomycin Respiratory Panel Bai See Note Adenovirus (Rapid PCR) Not Detected B.pert (TEM-PCR) Not Detected B.parapertussis DNA PCR Not Detected C. pneumoniae DNA (PCR) Not Detected Coronavirus OC43 (PCR) Not Detected Coronavirus HKU1 (PCR) Not Detected Coronavirus 229E (PCR) Not Detected Coronavirus NL63 (PCR) Not Detected Human Metapneumovir PCR Not Detected Influenza A (RT-PCR) Not Detected Influenza B (RT-PCR) Not Detected M. pneumoniae (PCR) Not Detected Parainfluenza 1 (PCR) Not Detected Parainfluenza 2 (PCR) Not Detected Parainfluenza 3 (PCR) Not Detected Parainfluenza 4 (PCR) Not Detected RSV (PCR) Not Detected Entero/Rhino (PCR) Not Detected SARS-CoV-2 RNA (RT-PCR) Not Detected 01/01/24 01/01/24 01/02/24 19:56 21:07 05:29 Hold Purple Top SEE NOTE Anion Gap 13 Estim Creat Clear Calc 103.6 Estimated GFR > 60 POC Glucose 152 H Random Glucose 155 H Calcium 8.6 Random Vancomycin 14.6 L Respiratory Panel Bai Adenovirus (Rapid PCR) B.pert (TEM-PCR) B.parapertussis DNA PCR C. pneumoniae DNA (PCR) Coronavirus OC43 (PCR) Coronavirus HKU1 (PCR) Coronavirus 229E (PCR) Coronavirus NL63 (PCR) Human Metapneumovir PCR Influenza A (RT-PCR) Influenza B (RT-PCR) M. pneumoniae (PCR) Parainfluenza 1 (PCR) Parainfluenza 2 (PCR) Parainfluenza 3 (PCR) Parainfluenza 4 (PCR) RSV (PCR) Entero/Rhino (PCR) SARS-CoV-2 RNA (RT-PCR) 01/02/24 07:22 Hold Purple Top Anion Gap Estim Creat Clear Calc Estimated GFR POC Glucose 146 H Random Glucose Calcium Random Vancomycin Respiratory Panel Bai Adenovirus (Rapid PCR) B.pert (TEM-PCR) B.parapertussis DNA PCR C. pneumoniae DNA (PCR) Coronavirus OC43 (PCR) Coronavirus HKU1 (PCR) Coronavirus 229E (PCR) Coronavirus NL63 (PCR) Human Metapneumovir PCR Influenza A (RT-PCR) Influenza B (RT-PCR) M. pneumoniae (PCR) Parainfluenza 1 (PCR) Parainfluenza 2 (PCR) Parainfluenza 3 (PCR) Parainfluenza 4 (PCR) RSV (PCR) Entero/Rhino (PCR) SARS-CoV-2 RNA (RT-PCR) Microbiology Microbiology Results: Microbiology 12/31/23 19:46 Blood Culture - Preliminary Blood - Venous No growth after 24 hours. 12/31/23 19:52 Blood Culture - Preliminary Blood - Venous No growth after 24 hours. Assessment and Plan (1) Cavitary lesion of lung: Status: Acute Plan 33-year-old male with history of [id number] type 2 diabetes, inflammatory bowel disease admitted for further management of suspected cavitary pneumonia #Acute SARITA cavitary lesion- cavitary, necrotic pneumonia. CT shows cavitary masslike lesion in the left upper lobe measuring 5.2 x 6.7 x 6.9 cm with surrounding ground-glass and consolidative components differentials to include infectious/inflammatory process such as cavitary pneumonia, septic emboli, however underlying malignancy can not be excluded. Tuberculosis could also have this appearanceno -no TB risk but possible -given recent URI symptoms, leukocytosis 12.7, tachycardia consistent with sepsis, suspect infectious etiology -Low suspicion for fungal pneumonia -cover with IV zosyn and vanco for now (initiated 12/30) -RPP negative -check sputum culture, strep antigen, Legionella pending, MRSA nasal swab negative but posiive for MSSA - neg hiv -infectious disease consult pending -duonebs, cough syrup prn -follow cbc/cultures -pulmomonology recommends induced sputum, tspot is pending, airborned precaution for ow # [id number] type 2 diabetes -POC glucose, diabetic diet -Humalog on sliding scale -hold metformin, Jardiance # inflammatory bowel disease -no acute flare, not on home medications #mild hypOkalemia--oral k, recheck tomorrow DVT prophylaxis-Lovenox Full code Patient requires inpatient stay at least 2 midnights for management of suspected cavitary pneumonia with sepsis requiring IV antibiotics and expert consultation on tb precautions until ruled out Quality Stroke Does the patient have a stroke diagnosis?: No VTE Prior VTE?: No VTE Risk Level:: Medical - moderate - high VTE Device Contraindication: Treatment Not Indicated VTE Drug Contraindication: N/A - Med Ordered
--- NOTE | 2024-01-02 10:20 | MHC.CM.PN ---
EMR REVIEWED AND PER MD ROUNDS, PT IS NOT MEDICALLY CLEARED FOR DC (IV ABT, F/U LABS, DROPLET PRECAUTIONS, ID CONSULT) CM WILL CONTINUE TO FOLLOW FOR ANY CHANGE TO DC PLAN/NEEDS.
[2024-01-02] MEDS: Sodium Chloride 3 % Inhalation 15 ML VIAL.NEB 4 ML INHALE (10:58)
[2024-01-02 11:00] VITALS: PULSE 68; RESP 16; O2SAT 98
[2024-01-02 11:14] LABS: Glucose, Whole Blood 255 mg/dL (60-115)
--- NOTE | 2024-01-02 11:31 | PC.RT ---
Specimen obtained via 3% hypertonic saline svn. It was labeled with pt info, RT pneumonic, date and time in biohazard bag and delivered to Nurse.
[2024-01-02] MEDS: Insulin Lispro 100 UNIT/ML 3 ML VIAL SUBCUT ×2 (11:39→16:53)
[2024-01-02] MEDS: vancomycin HCL 1,000 MG in 0.9 % Sodium Chloride 250 ML 270 MG IV (11:39)
[2024-01-02 15:52] VITALS: BP 115/55; PULSE 79; RESP 18; TEMP 36.7; O2SAT 97
[2024-01-02 16:00] VITALS: BP 115/55; PULSE 79; RESP 18; TEMP 36.7; O2SAT 97
--- NOTE | 2024-01-02 16:06 | MHC.CM.PN ---
DP: PT HAS BEEN MEDICALLY CLEARED FOR DC HOME, NO SERVICES. PT HAS OWN [facility]
--- NOTE | 2024-01-02 16:08 | P.DS_ITS ---
DS: Providers Provider Date of Service: 01/02/24 Date of admission: 12/31/23 20:16 Primary care physician: Brian Ramirez MD Consults: 12/31/23 20:18 Consult to Infectious Diseases Routine Consulting Provider: [facility] Reason for consultation: cavitary lesion 12/31/23 20:43 Consult to Pulmonology Routine Consulting Provider: [facility] Reason for consultation: cavitary lesion DS: Diagnosis Discharge Diagnosis (1) Cavitary lesion of lung: Status: Acute DS: Summary Hospital Course Hospital Course: admission hpi Chief Complaint: abn chest xr, cough, sob 33-year-old male with history of [id number] type 2 diabetes, inflammatory bowel disease presents to the ED at the recommendation of urgent care for evaluation of a cavitary lesion seen on chest x-ray. The patient reports that about 1 week ago developed nasal congestion, nonproductive cough and was starting to feel better. However, on went camping and devel oped pleuritic chest pain and dyspnea with productive cough with clear sputum production. Denies fevers, night sweats, shaking chills, sore throat, abdominal pain, nausea, vomiting, diarrhea, urinary symptoms, lightheadedness, syncope, palpitations. He denies any homelessness, travel outside of the country, drug use. He did just travel to [facility] for camping, but otherwise no travel. He works at [employer] in [employer] but does not work inside the hospital. No one sick at home. Has had about a 15 pound weight loss since july but attributes this to metformin use and better eating habits as he has been working to control his diabetes (a1c 10--> 7.1% most recently). Since arrival, patient has been tachycardic to 115 but vitals otherwise stable, afebrile no hypoxia. There is a leukocytosis of 12.7 renal function and electrolyte normal. Lactic acid 1.0, repeat 0.9. Blood cultures are pending. Negative for COVID-19, RSV, influenza. T spot pending. Chest CT shows cavitary masslike lesion in the left upper lobe measuring 5.2 x 6.7 x 6.9 cm with surrounding ground-glass and consolidative components differentials to include infectious/inflammatory process such as cavitary pneumonia, septic emboli, however underlying malignancy can not be excluded. Tuberculosis could also have this appearance. Hospital course: Patient presented with cough, shortness of breath, mild leukocytosis, and a chest CT showing a cavitary mass-like lesion in the left upper lobe measuring 5.2 x 6.7 x 6.9 cm with surrounding ground-glass and consolidative components. Differential diagnoses include infectious/inflammatory processes such as cavitary pneumonia and septic emboli, though an underlying malignancy cannot be excluded. Tuberculosis could also present similarly; however, the patient is at low risk for TB, and TB testing is pending. HIV and RPR tests are negative. The patient has been treated with Vancomycin and Zosyn and has been seen by both an infectious disease specialist and a senior pricing analyst, who deemed TB less likely. It is likely that the patient has had aspiration pneumonia resulting in necrosis and cavitation. The recommendation is to treat with Augmentin for 14 days. The patient is not hypoxic and does not have hemoptysis. Time Attestation Discharge Coordination Time (in mins): 40 Quality: Safe Use of Opioids Does Pt have an Active Cancer Diagnosis on the Problem List?: No Quality: Stroke Does the patient have a stroke diagnosis?: No Physical Exam Vital Signs: Vital Signs: Last Vital Signs Temp 98.0 F 01/02/24 15:52 Pulse 79 01/02/24 15:52 Resp 18 01/02/24 15:52 BP 115/55 L 01/02/24 15:52 Pulse Ox 97 01/02/24 15:52 O2 Del Method Room Air 01/02/24 15:52 O2 Flow Rate 99 01/01/24 11:41 BMI result Body Mass Index 22.0 DS: Data Data Completed and Pending Labs on day of discharge: Laboratory Results - last 24 hr 01/01/24 01/01/24 01/01/24 16:17 19:56 21:07 Hold Purple Top Sodium Potassium Chloride Carbon Dioxide Anion Gap BUN Creatinine Estim Creat Clear Calc Estimated GFR POC Glucose 160 H 152 H Random Glucose Calcium Random Vancomycin 14.6 L 01/02/24 01/02/24 01/02/24 05:29 07:22 11:10 Hold Purple Top SEE NOTE Sodium 138 Potassium 3.9 D Chloride 109 H Carbon Dioxide 20 L Anion Gap 13 BUN 10 Creatinine 0.99 Estim Creat Clear Calc 103.6 Estimated GFR > 60 POC Glucose 146 H 255 H Random Glucose 155 H Calcium 8.6 Random Vancomycin Preliminary micro results at discharge 12/31/23 19:46 Blood Culture - Preliminary Blood - Venous No growth after 24 hours. 12/31/23 19:52 Blood Culture - Preliminary Blood - Venous No growth after 24 hours. Discharge Plan Discharge Anticipated Discharge Date/Time: 01/02/24 15:49 Patient Disposition: Home, Self-Care Discharge Diagnosis: Cavitarty pneumonia Referrals: Brian Ramirez MD [Primary Care Provider] - 1 Week Daniel Raya MD [Physician] - 1 Week Discharge Medications: New amoxicillin-pot clavulanate 875-125 mg tablet 1 tab PO BID Qty: 26 0RF Continued Jardiance 25 mg tablet 25 mg PO DAILY Qty: 90 2RF benzonatate 200 mg Capsule 200 mg PO Q8H PRN (Reason: Cough) fluticasone propionate [Flonase] 50 mcg/actuation [place],Suspension 2 spray INTRANASAL DAILY Rx Instructions: administer into each nostril Discharge Orders: Discharge Order (Routine); Ordered 01/02/24 Ordered By: Pratik Leyva Diet: Advance to usual diet Activity on Discharge: As tolerated Stand Alone Forms: Patient Portal Discharge page Print Language: Pashto Care Plan Goals: Full recovery from cavitary pneumonia Health Concerns: cavitary pneumonia Plan of Treatment: Take Augmentin as recomended we recommend a follow up with a dentist for routine check follow up with your doctor in a week follow up with the senior pricing analyst office (Dr. Raya) call for appointment Assessment: see above
[2024-01-02 16:32] LABS: Glucose, Whole Blood 159 mg/dL (60-115)
--- NOTE | 2024-01-02 22:56 | W.PM.IDCN ---
History of Present Illness Data of Consult Service Date: 01/02/24 Requesting physician: Pratik Campbell Primary Care Provider: Brian Ramirez MD HPI Reason for consult: left cavitary lung lesion.... He presents with cough last month. He is thin but is HIV negative. He has 5.2 x 6.7 cm left lung cavity with no remarkable lymphadenopathy. He has no positive TB test in past and no hemoptysis. Review of Systems Review of Systems: Yes all other systems are reviewed and are negative [facility] Past Medical History Medical History Inflammatory bowel disease (Crohn's disease) Type 2 diabetes mellitus without complications Acute iritis Family History Family history: reviewed and not pertinent Surgical History Surgical History No pertinent past surgical history Social History Social History Household Members: Other Household Members Other:: PARENTS AND BROTHER Housing: House Alcohol intake: current Alcohol intake frequency: holidays/special occasions only Patient Tobacco Use Status: Never used Tobacco e-Cigarette/Vaping Use: Never Used Second Hand Smoke Exposure: No service: No Current occupational status: employed Cognitive needs: No Hearing needs: No Vision needs: Yes (glasses) Meds Allergies Allergy/AdvReac Type Severity Reaction Status Date / Time mercaptopurine AdvReac Intermediate pancreatiti Verified 12/31/23 12:13 s Home Medications ?Medication ?Instructions ?Recorded ?Confirmed ?Last Taken ?Type benzonatate 200 mg capsule 200 mg PO Q8H PRN Cough 12/31/23 12/31/23 12/31/23 History fluticasone propionate 50 2 spray intranasal DAILY 12/31/23 12/31/23 12/31/23 History mcg/actuation nasal spray,suspension Physical Exam Vital Signs: Vital Signs: Last Vital Signs Temp 98.0 F 01/02/24 16:00 Pulse 79 01/02/24 16:00 Resp 18 01/02/24 16:00 BP 115/55 L 01/02/24 16:00 Pulse Ox 97 01/02/24 16:00 O2 Del Method Room Air 01/02/24 16:00 O2 Flow Rate 99 01/01/24 11:41 BMI result Body Mass Index 22.0 Const: General: cooperative HEENT: Head: Yes normal to inspection Face and sinus: Yes normal facial exam Teeth and gingiva: abnormal tooth and associated gingiva, caries, edentulous and poor dentition Eyes: General: appearance normal, both eyes and all related structures Pupils: Equal, round and reactive pupils present Resp: Effort & Inspection: normal respiratory effort Cardio: Rate: regular rate Rhythm: regular rhythm GI: Palpation (GI): Soft to palpation and nontender : General: Yes no CVA tenderness Back/Spine/Pelvis: Back: no CVA tenderness Skin: General skin exam: no rashes or lesions noted Neuro: General: moves all extremities Cranial nerves: Yes Equal, round and reactive pupils present Extrem: General: Yes normal to inspection Psych: Appearance: grossly normal Results Labs 01/01/24 05:09 01/02/24 05:29 Labs: BMP 01/02/24 05:29 Sodium 138 Potassium 3.9 D Chloride 109 H Carbon Dioxide 20 L BUN 10 Creatinine 0.99 Calcium 8.6 Microbiology Microbiology Results: Microbiology 12/31/23 19:46 Blood - Venous Blood Culture - Preliminary No growth after 48 hours. 12/31/23 19:52 Blood - Venous Blood Culture - Preliminary No growth after 48 hours. 01/02/24 11:30 Sputum - Induced Gram Stain - Final Assessment and Plan (1) Cavitary lesion of lung: Status: Acute (2) Inflammatory bowel disease (Crohn's disease): Status: Acute (3) Type 2 diabetes mellitus without complications: Status: Acute Plan He has immunosuppressive factors like IBD and DM but CXR AP fim not classic for TB. He has poor dentition so probably aspiration pneumonia or genetic ? (father had pneumothoraxes in 20s )? Marfans. Would recommend Augmentin 875 mg po bid for 14 days. Follow PCP Check Tspot (he is not producing sputum) See dentist.
[2024-01-03 02:18] LABS: TS Negative Control Passed; TS Panel A 0; TS Panel B 0; TS Positive Control Passed; TSpotTB Negative (Negative)
[2024-01-05 06:39] LABS: Strep Pneumo Ag urine Not Detected (Not Detected)
[2024-01-05 07:29] LABS: Legionella Ag Urine Not Detected (Not Detected)
== END 2024-01-02 18:01 | disposition home or self-care (01) | DRG 144 ==
LOC: HO.ED 19:41 → HO.EDOVER 20:23 → HO.S3 01-01 10:13
PROVIDERS: Internal Medicine; Physician Assistant Medical; Admitting Provider Physician Assistant; Emergency Provider Emergency Medicine; PCP Internal Medicine; Visit Provider Internal Medicine
DX: J98.4 Other disorders of lung (principal); J85.0 Gangrene and necrosis of lung; E11.9 Type 2 diabetes mellitus without complications; E87.6 Hypokalemia; K52.3 Indeterminate colitis; Z20.822 Contact with and (suspected) exposure to COVID-19; Z79.51 Long term (current) use of inhaled steroids; Z79.899 Other long term (current) drug therapy
CPT/HCPCS: 0241U; 36415; 71260; 80048; 80053; 80202; 82947; 83605; 84484; 85025; 86481; 87040; 87070; 87116; 87205; 87206; 87389; 87449; 87633; 87640; 87641; 87899; 93005; 99285; J1650; J2543; J3370; Q9967

== ENCOUNTER → 2023-12-31 12:13 | Outpatient (BNV) | payer OTHER, SELFPAY | PROVIDERS: Admitting Provider Physician Assistant; Emergency Provider Emergency Medicine; PCP Internal Medicine; Visit Provider Internal Medicine Cardiovascular Disease | DX: R94.31 Abnormal electrocardiogram [ECG] [EKG] (principal) | CPT/HCPCS: 93010 ==

== ENCOUNTER → 2023-12-31 20:16 | Outpatient (BNV) | payer OTHER, SELFPAY | PROVIDERS: Admitting Provider Physician Assistant; Emergency Provider Emergency Medicine; PCP Internal Medicine; Visit Provider Internal Medicine | DX: J98.4 Other disorders of lung (principal); K50.90 Crohn's disease, unspecified, without complications; E11.9 Type 2 diabetes mellitus without complications | CPT/HCPCS: 99222 ==

== ENCOUNTER → 2023-12-31 20:16 | Outpatient (BNV) | payer OTHER, SELFPAY | PROVIDERS: Admitting Provider Physician Assistant; Emergency Provider Emergency Medicine; PCP Internal Medicine; Visit Provider Internal Medicine Pulmonary Disease | DX: J98.4 Other disorders of lung (principal) | CPT/HCPCS: 99222 ==

== ENCOUNTER → 2023-12-31 20:16 | Outpatient (BNV) | payer OTHER, SELFPAY | PROVIDERS: Admitting Provider Physician Assistant; Emergency Provider Emergency Medicine; PCP Internal Medicine; Visit Provider Physician Assistant | DX: J98.4 Other disorders of lung (principal) | CPT/HCPCS: 99223; 99232; 99239 ==

== ENCOUNTER 2024-01-10 10:26 | Outpatient (AMB) | payer OTHER, SELFPAY ==
--- NOTE | 2024-01-10 10:39 | A.OFFPC_ITS ---
Vital Signs 01/10/24 10:41 Height 5 ft 10 in Weight 150 lb 8 oz BMI 21.6 BP 118/72 Blood Pressure Location Rt brachial Position Sitting Pulse 106 H Pulse Source Pulse Oximeter Pulse Oximetry (%) 96 Oxygen Delivery Method Room Air Intake Visit Reasons: [facility] Discharge 7.10 Pneumonia Intake Note: Patient is here for hospital discharge follow up. Patient was discharged from [facility] on 01/02/24 and f/u for DM Product Inspection Supervisor Required: No Printed Circuit Board Pcb Draftsman: Present Allergies mercaptopurine Adverse Reaction (Intermediate, Verified 01/14/24 11:39) pancreatitis Medication List - Last Reconciled 01/14/24 by Brian Ramirez MD amoxicillin-pot clavulanate 875-125 mg 1 tab PO BID blood sugar diagnostic (Energy Automation SystemTouch Ultra Test strips) As directed once per day blood-glucose meter (Energy Automation SystemTouch Ultra2 Meter) As directed once per day cefpodoxime 400 mg (2 x 200 mg) PO BID 21 days empagliflozin (Jardiance) 25 mg PO DAILY fluticasone propionate 50 mcg/actuation 2 sprays intranasal DAILY lancets (Koruuch Delica Plus Lancet) As directed once per day Tobacco use date assessed: 01/10/24 Dental Screening Dental Screen Date: 08/29/23 HPI [facility] Discharge 7.10 Pneumonia HPI Details 33-year-old male presents to the office for a hospital discharge follow-up. Patient was admitted to the hospital with pneumonia. The chest x-ray showed suspicion of a large cavitary lesion. Tuberculosis was ruled out. Empirical diagnosis of pneumonia and started on Augmentin. Patient continues to improve. Cough symptoms are improving. Blood sugars were elevated in the hospital course. He has been discharged on Augmentin. Prior to admission, patient had a recent diagnosis of diabetes, he is unable to tolerate metformin. Not checking his blood sugars at home due to a faulty glucometer. [facility] Medical History Inflammatory bowel disease (Crohn's disease) Type 2 diabetes mellitus without complications Acute iritis Surgical History No pertinent past surgical history Social History Household Members: Other Household Members Other:: PARENTS AND BROTHER Housing: House Alcohol intake: current Alcohol intake frequency: holidays/special occasions only Patient Tobacco Use Status: Never used Tobacco e-Cigarette/Vaping Use: Never Used Second Hand Smoke Exposure: No service: No Current occupational status: employed Cognitive needs: No Hearing needs: No Vision needs: Yes (glasses) Questionnaire Thrive Questionnaire Date Thrive assessed: 01/01/24 ESA-7 AMB Questionnaire ESA-7 Date ESA - 7 assessed: 08/29/23 Source: Developed by Drs. Ed Ewing, Alicia Garcia, Lonnie Caballero and colleagues, with an educational radha from [employer]. Physical exam (Primary Care) Vital Signs: Last Vital Signs Pulse 106 H 01/10/24 10:41 BP 118/72 01/10/24 10:41 Pulse Ox 96 01/10/24 10:41 Oxygen Delivery Method Room Air 01/10/24 10:41 BMI result Body Mass Index 21.6 Tobacco/Smoking Status: Tobacco use Status Tobacco use date assessed 01/10/24 01/10/24 10:43 Patient Tobacco Use Status Never used Tobacco 01/10/24 10:43 e-Cigarette/Vaping Use Never Used 01/10/24 10:43 Thrive Assessment: Date of Thrive Assessment Date Thrive assessed 01/01/24 01/10/24 10:43 Const General: cooperative and healthy appearing Nutritional Appearance: well nourished Orientation/consciousness: patient oriented x3 Limitations: no limitations HENMT Head: Yes normal to inspection Eyes General: appearance normal, both eyes and all related structures Neck Neck: Yes normal visual inspection Chest Chest palpation & inspection: normal palpation of entire chest wall Resp Effort & Inspection: normal respiratory effort Neuro General: patient oriented x3 Results AMB Hemoglobin A1c AMB Hemoglobin A1c 8.0 % Last Edit by ANKUSH Perez on 01/10/24 11:34 Results Reviewed Results Reviewed: Laboratory Last Values Hgb A1c (Clinic) 8.0 % (4.0-6.0) H 01/10/24 11:24 Assessment and Plan Assessment & Plan (1) Cavitary lesion of lung: Code(s): J98.4 - Other disorders of lung Plan: Hospital discharge reviewed. Patient continues to improve clinically. Encouraged him to complete the antibiotic course. Patient has a follow-up appointment with the insemination worker next week. Further testing will be ordered. (2) Inflammatory bowel disease (Crohn's disease): Code(s): K50.90 - Crohn's disease, unspecified, without complications Plan: This condition is stable. (3) Type 2 diabetes mellitus without complications: Code(s): E11.9 - Type 2 diabetes mellitus without complications Plan: Patient is not tolerating the metformin. Currently on Jardiance. (4) Acute iritis: Code(s): H20.00 - Unspecified acute and subacute iridocyclitis Plan: Condition is stable. Continues to see the taping foreman. Further blood work to rule out autoimmune disease has been ordered. Orders: Orders AMB Hemoglobin A1c 01/10/24 Brian Ramirez MD E11.9 - Type 2 diabetes mellitus without complications Medications: Discontinued blood-glucose meter (Accu-Chek Guide Me Glucose Meter) Discontinued Reason: Ancillary Entered New Order As directed to check BS once per day 1 ea 0RF Radha Almaguer RN E11.9 - Type 2 diabetes mellitus without complications blood sugar diagnostic (Accu-Chek Guide test strips) Discontinued Reason: Ancillary Entered New Order As directed once per day 100 ea 0RF Radha Almaguer RN E11.9 - Type 2 diabetes mellitus without complications lancets (Accu-Chek Softclix Lancets) Discontinued Reason: Ancillary Entered New Order As directed once per day 100 ea 0RF Radha Almaguer RN E11.9 - Type 2 diabetes mellitus without complicat ions Coding Level of Care Code Est Pt Level 4 (07134) Complex EM visit Add On G2211 Diagnoses Cavitary lesion of lung J98.4 Inflammatory bowel disease (Crohn's disease) K50.90 Type 2 diabetes mellitus without complications E11.9 Acute iritis H20.00
[2024-01-10 10:41] VITALS: BP 118/72; PULSE 106; O2SAT 96; BMI 21.6
== END 2024-01-10 11:37 | disposition home or self-care (01) ==
PROVIDERS: PCP Internal Medicine; Visit Provider Internal Medicine
DX: E11.9 Type 2 diabetes mellitus without complications (principal)
CPT/HCPCS: 83036; 99214

== ENCOUNTER 2024-01-12 08:18 | Outpatient (REF) | payer OTHER, SELFPAY ==
[2024-01-12 11:17] LABS: MANUAL DIFF FLAG NO
[2024-01-12 11:29] LABS: Basophils Absolute Auto 0.1 X10*3/uL (0.0-0.2); Basophils Percent Auto 1.4 % (0-2); Eosinophils Absolute Auto 0.4 X10*3/uL (0.0-0.4); Eosinophils Percent Auto 4.6 % (0-4); Hematocrit 46.7 % (42.0-52.0); Hemoglobin 15.1 g/dl (14.0-18.0); Imm Gran Abs Auto 0.04 X10*3/uL (0.00-0.03); Imm Gran Pct Auto 0.4 % (0.0-0.4); Lymphocytes Absolute Auto 2.5 X10*3/uL (1.2-4.9); Lymphocytes Percent Auto 26.8 % (20-40); Mean Corpuscular HGB Conc 32.3 g/dl (31.0-36.0); Mean Corpuscular Hemoglobin 27.3 pg (27.0-33.0); Mean Corpuscular Volume 84.3 fL (80.0-98.0); Mean Platelet Volume 10.7 fL (9.4-12.4); Monocytes Absolute Auto 0.6 X10*3/uL (0.1-1.2); Monocytes Percent Auto 6.7 % (2-11); Neutrophils Absolute Auto 5.7 x10*3/uL (2.0-8.3); Neutrophils Percent Auto 60.1 % (45-73); Platelet Count 411 X10*3/uL (160-400); Red Blood Count 5.54 X10*6/uL (4.60-5.80); Red Cell Distribution Width 11.9 % (11.0-16.0); White Blood Count 9.4 X10*3/uL (4.8-10.8)
[2024-01-12 11:45] LABS: C Reactive Protein 1.72 mg/dL (< or = 0.50)
[2024-01-12 12:15] LABS: Erythrocyte Sedimentation Rate 61 MM/HR (0-15)
[2024-01-17 22:34] LABS: Treponema pallidum Ab FTA ABS Nonreactive (Nonreactive)
[2024-01-18 09:49] LABS: Angiotensin Converting Enzyme 22.2 U/L (9-67)
[2024-01-21 11:23] LABS: Anti Nuclear Antibody Screen NEGATIVE (NEGATIVE)
[2024-01-28 09:49] LABS: Rabies Neut. Ab Titration LESS THAN 0.1 IU/mL
== END 2024-01-12 08:19 | disposition home or self-care (01) ==
LOC: HO.HMGCLDS 08:18
PROVIDERS: PCP Internal Medicine; Visit Provider Ophthalmology
DX: H20.9 Unspecified iridocyclitis (principal)
CPT/HCPCS: 36415; 82164; 85025; 85652; 86038; 86140; 86382; 86780

== ENCOUNTER 2024-01-14 09:31 | Outpatient (AMB) | payer OTHER, SELFPAY ==
[2024-01-14 09:39] VITALS: BP 102/62; PULSE 110; O2SAT 98; BMI 21.8
--- NOTE | 2024-01-14 09:39 | MHC.OFFVIS ---
Vital Signs 01/14/24 09:39 Height 5 ft 10 in Weight 152 lb BMI 21.8 BP 102/62 Blood Pressure Location Lt brachial Position Sitting Pulse 110 H Pulse Source Doppler Pulse Oximetry (%) 98 Oxygen Delivery Method Room Air Intake Visit Reasons: HDF Cavitary lesion Allergies mercaptopurine Adverse Reaction (Intermediate, Verified 01/14/24 09:44) pancreatitis HPI HPI HDF Cavitary lesion: Details: 33-year-old gentleman with underlying history of IBD and diabetes mellitus admitted on 12/31/2023 with 2 week history of cough and slowly worsening left-sided pleuritic pain. Patient also admits to approximately 15 lb weight loss over 5 months that he attributes to improve diet and attempts to control his diabetes mellitus. His CT scan demonstrated left upper lobe 7 x 7 cavitary lesion. Patient was started on empiric antibiotics. His nasal screen is MSSA positive. He was discharged on 14 days of Augmentin and reports some, but incomplete improvement in his symptoms. [facility] Medical History Inflammatory bowel disease (Crohn's disease) Type 2 diabetes mellitus without complications Acute iritis Surgical History No pertinent past surgical history Social History Household Members: Other Household Members Other:: PARENTS AND BROTHER Housing: House Alcohol intake: current Alcohol intake frequency: holidays/special occasions only Patient Tobacco Use Status: Never used Tobacco e-Cigarette/Vaping Use: Never Used Second Hand Smoke Exposure: No service: No Current occupational status: employed Cognitive needs: No Hearing needs: No Vision needs: Yes (glasses) Review of Systems Const Denies daytime sleepiness, Denies excessive sweating, Denies fatigue, Denies fever(s), Denies lethargy, Denies malaise, Denies night sweats, Denies snoring and Denies weight loss Eyes Denies blurry vision and Denies itchy eyes ENT Denies nasal congestion, Denies post nasal drip, Denies sinus pain, Denies sinus pressure and Denies other ( Thrush) Card Denies chest pain, Denies pedal edema, Denies dyspnea, Denies orthopnea and Denies paroxysmal nocturnal dyspnea Resp Denies cough, Denies hemoptysis, Denies excessive phlegm production, Denies dyspnea, Denies snoring and Denies wheezing GI Denies abdominal pain and Denies heartburn Musc Denies myalgias, Denies arthralgias and Denies joint swelling Skin/Breast Denies rash Neuro Denies memory loss and Denies seizure-like activity Psych Denies abnormal sleep pattern, Denies anxiety and Denies memory loss Endo Denies excessive sweating, Denies fatigue and Denies heat intolerance Trevin/Lymph Denies easy bruising Aller/Immun Denies itchy eyes, Denies seasonal rhinorrhea and Denies wheezing Physical Exam Vital Signs: Last Vital Signs Pulse 110 H 01/14/24 09:39 BP 102/62 01/14/24 09:39 Pulse Ox 98 01/14/24 09:39 Oxygen Delivery Method Room Air 01/14/24 09:39 BMI result Body Mass Index 21.8 Const General: no acute distress and alert Nutritional Appearance: not obese Orientation/consciousness: Other orientation findings ( oriented) HEENT Head: Yes atraumatic Eyes General: appearance normal, both eyes and all related structures Sclerae: sclerae normal EOM: EOMs intact bilaterally Neck Neck: Yes supple Lymphatic: no lymphadenopathy noted Resp Effort & Inspection: normal respiratory effort and no use of accessory muscles Auscultation: clear to auscultation bilaterally Cardio Rate: regular rate Rhythm: regular rhythm Heart sounds: no gallops, no murmurs and no rubs Skin General skin exam: other ( warm) Extrem General: No clubbing, No cyanosis and No edema Assessment & Plan Assessment & Plan (1) Cavitary lesion of lung: Code(s): J98.4 - Other disorders of lung Category: Medical (2) Pulmonary abscess: Code(s): J85.2 - Abscess of lung without pneumonia Category: Medical Plan Patient with improving, but not resolved symptoms of likely underlying pulmonary MSSA abscess. Will treat with Vantin for additional 3 weeks and then repeat CT chest. Orders: Orders CT chest wo IV con 02/06/24 J85.2 - Abscess of lung without pneumonia Medications: New cefpodoxime must administer with a meal/food 400 mg (2 x 200 mg) PO BID 21 days 84 tabs 0RF Coding Level of Care Code Est Pt Level 4 (57775) Diagnoses Cavitary lesion of lung J98.4 Pulmonary abscess J85.2
== END 2024-01-14 09:54 | disposition home or self-care (01) ==
PROVIDERS: PCP Internal Medicine; Visit Provider Internal Medicine Pulmonary Disease
DX: J98.4 Other disorders of lung (principal); J85.2 Abscess of lung without pneumonia
CPT/HCPCS: 99214

== ENCOUNTER → 2024-01-14 09:31 | Outpatient (BNVA) | payer OTHER, SELFPAY | PROVIDERS: PCP Internal Medicine; Visit Provider Internal Medicine Pulmonary Disease ==

== ENCOUNTER 2024-02-08 08:54 | Outpatient (REF) | payer OTHER, SELFPAY ==
--- NOTE | ~2024-02-08 | CT_ITS ---
EXAMINATION: CT CHEST WITHOUT CONTRAST CLINICAL INFORMATION: Abscess of lung COMPARISON: Portions of a previous CT December 31, 2023 TECHNIQUE: Multidetector volumetric CT imaging of the chest was done. Axial MIP volume rendering provided. Sagittal and coronal reformatted images were obtained. This CT examination was performed using dose optimization techniques as appropriate, variously including the following: *Automated exposure control *Adjustment of mA and/or kV according to patient size (this includes techniques or standardized protocols for targeted exams where dose is matched to indication/reason for exam; i.e. extremities or head) *Use of iterative reconstruction technique DLP: 127 mGy-cm FINDINGS: WEALTH MANAGEMENT DIRECTOR: There are some peripheral opacities in the left upper chest and a few scattered opacities in the left lower lung. I suspect some reticular linear opacities in the posterior right lower lobe. There is some gaseous distention of the visualized upper abdomen. LUNGS: Abnormal. Thick walled irregular cavity with surrounding parenchymal abnormality in the apical posterior left upper lobe abutting the major fissure and the visceral and parietal pleura laterally. There is now a lobular masslike opacity within the cavity. The cavitary process has irregular margins which makes quantification somewhat difficult. In the axial plane the greatest diameter is approximately 4.4 cm. On December 31, 2023 the overall process was much larger measuring at least 7.1 cm in greatest axial dimension. The irregular wall and associated parenchymal opacity has improved. There is some thickening of the adjacent airways. There are some scattered airspace opacities in the lingula and there are multiple solid and semisolid opacities in the left lower lobe without discrete cavitation although cavity formation could be developing. The opacities in the left lower lobe are difficult to quantify but are equivocally smaller. There are some mild secretions along the right side of the mid trachea. There are some nodular opacities in the posterior costophrenic sulcus region of the right lower lobe. These are similar to December 31, 2023 MEDIASTINUM: There are some nonspecific aorticopulmonary window lymph nodes. No suspicious adenopathy CORONARY ARTERY CALCIFICATION: None visualized on this study. PLEURA: There is no pleural fluid. There is no pneumothorax. As described the cavitary process in the left upper lobe abuts the pleura laterally. No convincing evidence of extension into the chest wall. AXILLA: No lymphadenopathy. UPPER ABDOMEN: The renal contours are nodular. OSSEOUS STRUCTURES: No suspicious focal lesion CT/CT chest wo IV con IMPRESSION: There is a thick-walled irregular cavity in the left upper lobe abutting the pleura that has overall decreased in size but now contains a solid abnormality within the cavity. Possibilities include aspergilloma within a pre-existing cavity. In addition there are opacities in the lower lobes which could represent pneumonia Correlate with any previous culture results. As previously described cavitating infection such as tuberculosis or even a cavitary neoplasm cannot be excluded on imaging basis alone. Imaging follow-up until complete resolution necessary Fleischner guidelines were followed. Electronically signed by: Doug Joy MD 02/12/2024 05:08 PM EDT
== END 2024-02-08 08:55 | disposition home or self-care (01) ==
LOC: HO.CT 08:54
PROVIDERS: PCP Internal Medicine; Visit Provider Internal Medicine Pulmonary Disease
DX: J85.2 Abscess of lung without pneumonia (principal)
CPT/HCPCS: 71250

== ENCOUNTER 2024-02-14 10:32 | Outpatient (AMB) | payer OTHER, SELFPAY ==
[2024-02-14 10:51] VITALS: BP 104/67; PULSE 125; O2SAT 98; BMI 20.8
--- NOTE | 2024-02-14 10:51 | MHC.OFFVIS ---
Vital Signs 02/14/24 10:51 Height 5 ft 10 in Weight 145 lb BMI 20.8 BP 104/67 Blood Pressure Location Lt brachial Position Sitting Pulse 125 H Pulse Source Doppler Pulse Oximetry (%) 98 Oxygen Delivery Method Room Air Intake Visit Reasons: HDF Cavitary lesion Allergies mercaptopurine Adverse Reaction (Intermediate, Verified 02/14/24 10:56) pancreatitis HPI HPI HDF Cavitary lesion: Details: 33-year-old gentleman with underlying history of IBD and diabetes mellitus admitted on 12/31/2023 with 2 week history of cough and slowly worsening left-sided pleuritic pain. Patient also admits to approximately 15 lb weight loss over 5 months that he attributes to improve diet and attempts to control his diabetes mellitus. His CT scan demonstrated left upper lobe 7 x 7 cavitary lesion. Patient was started on empiric antibiotics. His nasal screen is MSSA positive. He was discharged on 14 days of Augmentin and reports some, but incomplete improvement in his symptoms. After the last office visit patient completed 3 additional weeks of Vantin with resolution of his symptoms. His CT chest shows shrinking abscess cavity, but now has solid component, possible aspergilloma. [facility] Medical History Inflammatory bowel disease (Crohn's disease) Type 2 diabetes mellitus without complications Acute iritis Surgical History No pertinent past surgical history Social History Household Members: Other Household Members Other:: PARENTS AND BROTHER Housing: House Alcohol intake: current Alcohol intake frequency: holidays/special occasions only Patient Tobacco Use Status: Never used Tobacco e-Cigarette/Vaping Use: Never Used Second Hand Smoke Exposure: No service: No Current occupational status: employed Cognitive needs: No Hearing needs: No Vision needs: Yes (glasses) Review of Systems Const Denies daytime sleepiness, Denies excessive sweating, Denies fatigue, Denies fever(s), Denies lethargy, Denies malaise, Denies night sweats, Denies snoring and Denies weight loss Eyes Denies blurry vision and Denies itchy eyes ENT Denies nasal congestion, Denies post nasal drip, Denies sinus pain, Denies sinus pressure and Denies other ( Thrush) Card Denies chest pain, Denies pedal edema, Denies dyspnea, Denies orthopnea and Denies paroxysmal nocturnal dyspnea Resp Denies cough, Denies hemoptysis, Denies excessive phlegm production, Denies dyspnea, Denies snoring and Denies wheezing GI Denies abdominal pain and Denies heartburn Musc Denies myalgias, Denies arthralgias and Denies joint swelling Skin/Breast Denies rash Neuro Denies memory loss and Denies seizure-like activity Psych Denies abnormal sleep pattern, Denies anxiety and Denies memory loss Endo Denies excessive sweating, Denies fatigue and Denies heat intolerance Trevin/Lymph Denies easy bruising Aller/Immun Denies itchy eyes, Denies seasonal rhinorrhea and Denies wheezing Physical Exam Vital Signs: Last Vital Signs Pulse 125 H 02/14/24 10:51 BP 104/67 02/14/24 10:51 Pulse Ox 98 02/14/24 10:51 Oxygen Delivery Method Room Air 02/14/24 10:51 BMI result Body Mass Index 20.8 Const General: no acute distress and alert Nutritional Appearance: not obese Orientation/consciousness: Other orientation findings ( oriented) HEENT Head: Yes atraumatic Eyes General: appearance normal, both eyes and all related structures Sclerae: sclerae normal EOM: EOMs intact bilaterally Neck Neck: Yes supple Lymphatic: no lymphadenopathy noted Resp Effort & Inspection: normal respiratory effort and no use of accessory muscles Auscultation: clear to auscultation bilaterally Cardio Rate: regular rate Rhythm: regular rhythm Heart sounds: no gallops, no murmurs and no rubs Skin General skin exam: other ( warm) Extrem General: No clubbing, No cyanosis and No edema Assessment & Plan Assessment & Plan (1) Cavitary lesion of lung: Code(s): J98.4 - Other disorders of lung Category: Medical Plan: Now with solid component, possible aspergilloma. Will obtain fungal studies. (2) Pulmonary abscess: Code(s): J85.2 - Abscess of lung without pneumonia Category: Medical Plan: Abscess component has resolved on additional antibiotic regimen. CT chest with shrinking abscess cavity. Orders: Orders Immunoglobulin E Today J98.4 - Other disorders of lung Aspergillus Ag EIA Today J98.4 - Other disorders of lung Other Ref Test - Misc Today J98.4 - Other disorders of lung Coding Level of Care Code Est Pt Level 4 (01994) Diagnoses Cavitary lesion of lung J98.4 Pulmonary abscess J85.2
== END 2024-02-14 11:02 | disposition home or self-care (01) ==
PROVIDERS: PCP Internal Medicine; Visit Provider Internal Medicine Pulmonary Disease
DX: J98.4 Other disorders of lung (principal); J85.2 Abscess of lung without pneumonia
CPT/HCPCS: 99214

== ENCOUNTER 2024-02-14 10:32 | Outpatient (REF) | payer OTHER, SELFPAY ==
[2024-02-15 19:58] LABS: Immunoglobulin E 38 kU/L (<OR=114)
[2024-02-18 17:02] LABS: Aspergillus Antigen Not Detected (Not Detected); Fungitell <31 pg/mL (<60); Fungitell 1,3 beta glucan Negative; Index Value 0.07 (<0.50)
== END 2024-02-14 10:33 | disposition home or self-care (01) ==
LOC: HO.LAB 10:32
PROVIDERS: PCP Internal Medicine; Visit Provider Internal Medicine Pulmonary Disease
DX: J98.4 Other disorders of lung (principal)
CPT/HCPCS: 36415; 82785; 87305; 87449

== ENCOUNTER 2024-03-26 07:59 | Outpatient (AMB) | payer OTHER, SELFPAY ==
[2024-03-26 08:23] VITALS: BP 90/64; PULSE 111; O2SAT 96; BMI 20.8
--- NOTE | 2024-03-26 08:23 | MHC.PC.OV ---
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 Patient's blood sugars have been stable. He brings in his glucometer for me to review. He has been taking Jardiance and Trulicity for blood sugar control. He is unable to tolerate the metformin due to diarrhea. Patient is reporting symptoms of tingling in his hands and legs. He is also feeling a sensation of cold feet. In addition he has been having diarrhea which occasionally has blood in it. Patient has a diagnosis of Crohn's disease but has not seen a water vessel captain in 5 years. Currently he is on no medications for the same. Able to function and do activities of daily living. Patient is being followed by the wooling machine operator for the cavity lesion in the left lung. A pulmonary abscess had been diagnosed and 2 CT scans of the chest shows serial improvement in the size of the cavity. Currently he is on no medications for the same. Patient's eye condition has resolved. He no longer is on medications for iritis. [facility] Medical History (Updated 03/26/24 @ 08:28 by Biran Ramirez MD) Pulmonary abscess Inflammatory bowel disease (Crohn's disease) Type 2 diabetes mellitus without complications Acute iritis Surgical History No pertinent past surgical history Social History Household Members: Other Household Members Other:: PARENTS AND BROTHER Housing: House Alcohol intake: current Alcohol intake frequency: holidays/special occasions only Patient Tobacco Use Status: Never used Tobacco e-Cigarette/Vaping Use: Never Used Second Hand Smoke Exposure: No service: No Current occupational status: employed Cognitive needs: No Hearing needs: No Vision needs: Yes (glasses) Questionnaire Thrive Questionnaire Date Thrive assessed: 01/01/24 Are you currently unemployed and looking for a job?: No AUDIT C Alcohol Use Questionnaire (AUDIT-C) 2. How many drinks containing alcohol do you have on a typical day when you are drinking?: 1 or 2 3. How often do you have six or more drinks on one occasion?: Never Total Score: 0 ESA-7 AMB Questionnaire ESA-7 Date ESA - 7 assessed: 08/29/23 Source: Developed by Drs. Ed Ewing, Alicia Garcia, Lonnie Caballero and colleagues, with an educational radha from [employer]. Physical exam (Primary Care) Vital Signs: Oxygen Delivery Method Room Air 03/26/24 08:23 BMI result Body Mass Index 20.8 Tobacco/Smoking Status: Tobacco use Status Tobacco use date assessed 01/10/24 03/26/24 08:26 Patient Tobacco Use Status Never used Tobacco 03/26/24 08:26 e-Cigarette/Vaping Use Never Used 03/26/24 08:26 Thrive Assessment: Date of Thrive Assessment Date Thrive assessed 01/01/24 03/26/24 08:26 Const General: cooperative and healthy appearing Nutritional Appearance: well nourished Orientation/consciousness: patient oriented x3 Limitations: no limitations HENMT Head: Yes normal to inspection Eyes General: appearance normal, both eyes and all related structures Neck Neck: Yes normal visual inspection Chest Chest palpation & inspection: normal palpation of entire chest wall Resp Effort & Inspection: normal respiratory effort Neuro General: patient oriented x3 Coding Level of Care Code Est Pt Level 4 (16358) Complex EM visit Add On G2211 Diagnoses Pulmonary abscess J85.2 Type 2 diabetes mellitus without complications E11.9 Acute iritis H20.00 Inflammatory bowel disease (Crohn's disease) K50.90 Assessment & Plan Assessment & Plan (1) Pulmonary abscess: Code(s): J85.2 - Abscess of lung without pneumonia Category: Medical Plan: Patient is aware of the results of the repeat CT scan done in January. Currently he is on no antibiotics. He is being followed up regularly by the wooling machine operator and a follow-up CT scan may be needed. Patient has an appointment with the wooling machine operator regarding this matter. (2) Type 2 diabetes mellitus without complications: Code(s): E11.9 - Type 2 diabetes mellitus without complications Category: Medical Plan: Blood sugars were reviewed. They are in range. Continue Jardiance and Trulicity at the current dosage. Patient could not tolerate metformin due to diarrhea. (3) Acute iritis: Code(s): H20.00 - Unspecified acute and subacute iridocyclitis Category: Medical Plan: This condition is stable and resolved clinically. Currently on no medications. Occasional dry eye for which he applies artificial tears. (4) Inflammatory bowel disease (Crohn's disease): Code(s): K50.90 - Crohn's disease, unspecified, without complications Category: Medical Plan: Condition is active. Patient needs a water vessel captain to manage his condition. He has not seen a water vessel captain in 5 years. A new appointment is being made. Blood work has been ordered. Orders: Orders Lipid Panel Today E11.9 - Type 2 diabetes mellitus without complications, J85.2 - Abscess of lung without pneumonia, K50.90 - Crohn's disease, unspecified, without complications Liver Panel Today E11.9 - Type 2 diabetes mellitus without complications, J85.2 - Abscess of lung without pneumonia, K50.90 - Crohn's disease, unspecified, without complications Erythrocyte Sedimentation Rate Today E11.9 - Type 2 diabetes mellitus without complications, J85.2 - Abscess of lung without pneumonia, K50.90 - Crohn's disease, unspecified, without complications C Reactive Protein Today E11.9 - Type 2 diabetes mellitus without complications, J85.2 - Abscess of lung without pneumonia, K50.90 - Crohn's disease, unspecified, without complications UA and rflx microscopic Today E11.9 - Type 2 diabetes mellitus without complications, J85.2 - Abscess of lung without pneumonia, K50.90 - Crohn's disease, unspecified, without complications Hemoglobin A1c Today E11.9 - Type 2 diabetes mellitus without complications, J85.2 - Abscess of lung without pneumonia, K50.90 - Crohn's disease, unspecified, without complications Basic Metabolic Panel Today E11.9 - Type 2 diabetes mellitus without complications, J85.2 - Abscess of lung without pneumonia, K50.90 - Crohn's disease, unspecified, without complications Complete Blood Count no Diff Today E11.9 - Type 2 diabetes mellitus without complications, J85.2 - Abscess of lung without pneumonia, K50.90 - Crohn's disease, unspecified, without complications Microalbumin, Random (w Creat) Today E11.9 - Type 2 diabetes mellitus without complications, J85.2 - Abscess of lung without pneumonia, K50.90 - Crohn's disease, unspecified, without complications
== END 2024-03-26 08:48 | disposition home or self-care (01) ==
PROVIDERS: PCP Internal Medicine; Visit Provider Internal Medicine
DX: J85.2 Abscess of lung without pneumonia (principal); E11.9 Type 2 diabetes mellitus without complications; H20.00 Unspecified acute and subacute iridocyclitis; K50.90 Crohn's disease, unspecified, without complications

== ENCOUNTER → 2024-03-26 07:59 | Outpatient (BNVA) | payer OTHER, SELFPAY | PROVIDERS: PCP Internal Medicine; Visit Provider Internal Medicine ==

== ENCOUNTER 2024-05-19 12:33 | Outpatient (AMB) | payer OTHER, SELFPAY ==
--- NOTE | 2024-05-19 12:43 | A.OFFVIS_ITS ---
Vital Signs 05/19/24 12:54 Height 5 ft 10 in Weight 152 lb 1.903 oz BMI 21.8 BP 119/78 Blood Pressure Location Lt brachial Position Sitting Pulse 114 H Intake Visit Reasons: Crohn's disease Intake Note: Meet presents in the office as a new patient for crohns disease. CC: HE was told that originally he was diagnosed with crohns but then was told otherwise. He has had diarrhea and he was put on metformin that did not help with his crohns so he is now off of it. States that the diarrhea has been very black and he is concerned of internal bleeding - he feels also that food is not digesting well. Super[facility] Required: No Allergies mercaptopurine Adverse Reaction (Intermediate, Verified 05/19/24 13:10) pancreatitis HPI Comments Details: 33 y.o M who reports hx of crohns dx at 16 y.o age, who is here to establish care. Reports was diagnosed with crohns in his late teens when he had abd pain, diarrhea with blood by his pediatric loom operator. However follow up evaluation in his adulthood did not show sufficient evidence of IBD but stayed on meds? Pt last took meds for crohns in 2018 thinks possibly remicade or entyvio. Lost his insurance at that time and therefore was lost to follow up. Then despite getting insurance back since he wasnt having any sx didnt need to follow back. Last colo was in 2016. Sx returned in Jul with diarrhea which is black to dark brown. Assoc with bilateral lower abd pain. Has up to 2-3 BMs per day including night time. No overt blood. Initially was attributed to metformin but lately was diagnosed with iritis so establishing care for possible crohns. No joint pains. No rashes. No fam hx of IBD or CRC that pt is aware of. [facility] Medical History (Updated 05/19/24 @ 13:35 by Oneyda Park MD) Pulmonary abscess Inflammatory bowel disease (Crohn's disease) Type 2 diabetes mellitus without complications Acute iritis Surgical History (Updated 05/19/24 @ 13:10 by ANKUSH Dorantes) Hx of colonoscopy History of esophagogastroduodenoscopy (EGD) No pertinent past surgical history Social History Household Members: Other Household Members Other:: PARENTS AND BROTHER Housing: House Alcohol intake: current Alcohol intake frequency: holidays/special occasions only Patient Tobacco Use Status: Never used Tobacco e-Cigarette/Vaping Use: Never Used Second Hand Smoke Exposure: No service: No Current occupational status: employed Cognitive needs: No Hearing needs: No Vision needs: Yes (glasses) Review of Systems Const All systems reviewed & are unremarkable except as noted in HPI and below Physical Exam Vital Signs: Last Vital Signs Pulse 114 H 05/19/24 12:54 BP 119/78 05/19/24 12:54 BMI result Body Mass Index 21.8 No apparent distress, thin Nonicteric Abdomen soft, nondistended Alert and oriented x3, normal gait Assessment & Plan Assessment & Plan (1) Chronic diarrhea: Code(s): K52.9 - Noninfective gastroenteritis and colitis, unspecified Category: Medical (2) Pulmonary abscess: Code(s): J85.2 - Abscess of lung without pneumonia Category: Medical (3) Cavitary lesion of lung: Code(s): J98.4 - Other disorders of lung Category: Medical (4) Inflammatory bowel disease (Crohn's disease): Code(s): K50.90 - Crohn's disease, unspecified, without complications Category: Medical (5) Acute iritis: Code(s): H20.00 - Unspecified acute and subacute iridocyclitis Category: Medical Plan Pt with reported hx of crohns - reviews that eventually was told may not have crohns?? Records not available and will be requested. In any case, warrants a bidirectional endoscopy for chronic diarrhea with unintentional weight loss x 6 months. Ddx include celiac, infectious diarrhea, ??paraneoplastic given pulm cavitary lesion. Labs will also be ordered for evaluation of chronic diarrhea as well as to check hep serologies in anticipation of biologic. TSPOT negative from December 2023. Plan: - Labs ordered - Stool studies - EGD/colo to be booked - PEG prep Rxed and instructions reviewed. Follow up after endoscopy Orders: Orders GI Panel Today K52.9 - Noninfective gastroenteritis and colitis, unspecified CDiff Gene PCR Today K52.9 - Noninfective gastroenteritis and colitis, unspecified Hepatitis A IgG Today K50.90 - Crohn's disease, unspecified, without complications Hepatitis B Surface Antibody Today K50.90 - Crohn's disease, unspecified, without complications Hepatitis B Surface Antigen Today K50.90 - Crohn's disease, unspecified, without complications Hepatitis C Antibody Today K50.90 - Crohn's disease, unspecified, without complications Complete Blood Count no Diff Today K52.9 - Noninfective gastroenteritis and colitis, unspecified Comprehensive Met. Panel Today K52.9 - Noninfective gastroenteritis and colitis, unspecified Calprotectin, Fecal Today K52.9 - Noninfective gastroenteritis and colitis, unspecified TSH reflex Free T4 Today K52.9 - Noninfective gastroenteritis and colitis, unspecified Transglutaminase IgA Today K52.9 - Noninfective gastroenteritis and colitis, unspecified Immunoglobulin A Today K52.9 - Noninfective gastroenteritis and colitis, unspecified C Reactive Protein Today K52.9 - Noninfective gastroenteritis and colitis, unspecified Hepatitis B Core Antibody Today K50.90 - Crohn's disease, unspecified, without complications Medications: New peg 3350-electrolytes 236-22.74-6.74 -5.86 gram (Golytely) as per split prep instructions, until fecal effluent is clear 240 mL PO Q10M 4,000 mL 0RF colonoscopy Coding Level of Care Code New Pt Level 4 (41257) Complex EM visit Add On G2211 Diagnoses Chronic diarrhea K52.9 Pulmonary abscess J85.2 Cavitary lesion of lung J98.4 Inflammatory bowel disease (Crohn's disease) K50.90 Acute iritis H20.00
[2024-05-19 12:54] VITALS: BP 119/78; PULSE 114; BMI 21.8
== END 2024-05-19 13:45 | disposition home or self-care (01) ==
PROVIDERS: PCP Internal Medicine; Visit Provider Internal Medicine
DX: K52.9 Noninfective gastroenteritis and colitis, unspecified (principal); J85.2 Abscess of lung without pneumonia; J98.4 Other disorders of lung; K50.90 Crohn's disease, unspecified, without complications; H20.00 Unspecified acute and subacute iridocyclitis
CPT/HCPCS: 99204

== ENCOUNTER 2024-05-19 12:33 | Outpatient (REF) | payer OTHER, SELFPAY ==
[2024-05-19 17:12] LABS: Hematocrit 52.2 % (42.0-52.0); Hematocrit 52.5 % (42.0-52.0); Hemoglobin 17.4 g/dl (14.0-18.0); Hemoglobin 17.8 g/dl (14.0-18.0); Mean Corpuscular HGB Conc 33.3 g/dl (31.0-36.0); Mean Corpuscular HGB Conc 33.9 g/dl (31.0-36.0); Mean Corpuscular Hemoglobin 28.4 pg (27.0-33.0); Mean Corpuscular Hemoglobin 28.5 pg (27.0-33.0); Mean Corpuscular Volume 85.3 fL (80.0-98.0); Mean Platelet Volume 10.8 fL (9.4-12.4); Mean Platelet Volume 11.6 fL (9.4-12.4); Platelet Count 159 X10*3/uL (160-400); Platelet Count 211 X10*3/uL (160-400); Red Blood Count 6.12 X10*6/uL (4.60-5.80); Red Blood Count 6.25 X10*6/uL (4.60-5.80); Red Cell Distribution Width 13.1 % (11.0-16.0); Red Cell Distribution Width 13.2 % (11.0-16.0); White Blood Count 10.1 X10*3/uL (4.8-10.8); White Blood Count 9.6 X10*3/uL (4.8-10.8)
[2024-05-19 17:14] LABS: Appearance Urine Clear; Color Urine Yellow; Glucose Urine UA >=1000 mg/dL (Negative); Leukocyte Esterase Urine Negative (Negative); Nitrite Urine Negative (Negative); PH 5.5 (5.0-9.0); Specific Gravity - Urine >= 1.030 (1.005-1.025); UMIC TRIGGER UA YES; Urine Blood Negative (Negative); Urine Ketones Negative (Negative); Urine Protein 100 (2+) mg/dL (Neg-Trace)
[2024-05-19 17:20] LABS: Bacteria Urine None Seen (None Seen); Hyaline Casts Urine 0-2 /LPF (0-2); RBC Urine 0-2 /HPF (0-2); Squamous Epithelial Cell Urine 0-2 /HPF (0-2); WBC Urine 0-5 /HPF (0-5)
[2024-05-19 17:39] LABS: Alanine Aminotransferase 30 U/L (0-40); Albumin Level 4.1 g/dL (3.5-5.0); Alkaline Phosphatase 71 U/L (39-117); Anion Gap 11 (12-20); Aspartate Amino Transferase 23 U/L (5-37); Bilirubin Direct 0.3 mg/dL (0.0-0.5); Bilirubin Total 1.1 mg/dL (0.0-1.0); Blood Urea Nitrogen 25 mg/dL (9-16); C Reactive Protein 0.28 mg/dL (< or = 0.50); Calcium 9.7 mg/dL (8.4-10.2); Carbon Dioxide 24 mmol/L (22-29); Chloride 108 mmol/L (96-108); Cholesterol 165 mg/dL (<200); Estimated Glomerular Filt Rate > 60; Glucose Random 112 mg/dL (60-115); HDL Cholesterol 45 mg/dL (>40); LDL Cholesterol Calculated 96 mg/dL (<100); Potassium 4.3 mmol/L (3.3-5.1); Sodium 139 mmol/L (135-145); Total Protein 7.8 g/dL (6.5-8.0); Triglycerides 124 mg/dL (<150)
[2024-05-19 17:58] LABS: TSH reflex Free T4 2.66 uIU/mL (0.32-4.0)
[2024-05-19 18:01] LABS: Erythrocyte Sedimentation Rate 12 MM/HR (0-15)
[2024-05-19 19:00] LABS: Creatinine Urine 76.58 mg/dL
[2024-05-19 19:20] LABS: Microalbum/Creatinine Ratio Ur 671.1 ug/mg cr (<30)
[2024-05-20 07:18] LABS: Estimated Average Glucose 117 mg/dL; Hemoglobin A1C 172.2334 umol/L; Hemoglobin A1c % 5.7 % (<6.0); Total Hemoglobin (HGBA1C) 4389.0849 umol/L
[2024-05-20 08:20] LABS: Hepatitis A Antibody IgG Nonreactive (Nonreactive); ~Hepatitis A Antibody IgG 0.25 S/CO (0.00-0.99)
[2024-05-20 08:24] LABS: HBS Num1 2.41 mIU/mL (0-7.99); HBc Num1 0.11 S/CO (0.00-0.79); HBsAGNum1 0.37 S/CO (0.00-0.99); Hepatitis B Core Antibody Nonreactive (Nonreactive); Hepatitis B Surface Antigen Negative (Negative); ~HepC Num1 0.09 S/CO (0.00-0.79); ~Hepatitis B Surface Antibody NONREACTIVE (Nonreactive); ~Hepatitis C Antibody Nonreactive (Nonreactive)
[2024-05-20 13:17] LABS: Immunoglobulin A 469 mg/dL (47-310)
[2024-05-20 21:59] LABS: Transglutaminase IgA <1.0 U/mL
[2024-05-26 10:40] LABS: Aspergillus Antigen Not Detected; Index Value 0.11
== END 2024-05-19 12:34 | disposition home or self-care (01) ==
LOC: HO.LAB 12:33
PROVIDERS: Internal Medicine Pulmonary Disease; PCP Internal Medicine; Visit Provider Internal Medicine
DX: K52.9 Noninfective gastroenteritis and colitis, unspecified (principal); E11.9 Type 2 diabetes mellitus without complications; K50.90 Crohn's disease, unspecified, without complications; J85.2 Abscess of lung without pneumonia
CPT/HCPCS: 36415; 80053; 80061; 80076; 81001; 82043; 82248; 82570; 82784; 83036; 84443; 85027; 85652; 86140; 86364; 86704; 86706; 86708; 86803; 87305; 87340

== ENCOUNTER 2024-06-11 09:51 | Outpatient (AMB) | payer OTHER, SELFPAY ==
[2024-06-11 10:02] VITALS: BP 100/76; PULSE 103; O2SAT 98; BMI 23.1
--- NOTE | 2024-06-11 10:02 | A.OFFVIS_ITS ---
Vital Signs 06/11/24 10:02 Height 5 ft 10 in Weight 160 lb 14.999 oz BMI 23.1 BP 100/76 Blood Pressure Location Rt brachial Position Sitting Pulse 103 H Pulse Source Doppler Pulse Oximetry (%) 98 Oxygen Delivery Method Room Air Intake Visit Reasons: HDF Cavitary lesion Allergies mercaptopurine Adverse Reaction (Intermediate, Verified 05/19/24 13:10) pancreatitis HPI HPI HDF Cavitary lesion: Details: 33-year-old gentleman with underlying history of IBD and diabetes mellitus admitted on 12/31/2023 with 2 week history of cough and slowly worsening left- sided pleuritic pain. Patient also admits to approximately 15 lb weight loss over 5 months that he attributes to improve diet and attempts to control his diabetes mellitus. His CT scan demonstrated left upper lobe 7 x 7 cavitary lesion. Patient was started on empiric antibiotics. His nasal screen is MSSA positive. He was discharged on 14 days of Augmentin. After the last office visit patient had negative beta D glucan/Aspergillus serology. He also gained back 20 lb. He denies any cough or sputum production. [facility] Medical History (Updated 05/19/24 @ 13:35 by Oneyda Park MD) Pulmonary abscess Inflammatory bowel disease (Crohn's disease) Type 2 diabetes mellitus without complications Acute iritis Surgical History (Updated 05/19/24 @ 13:10 by ANKUSH Dorantes) Hx of colonoscopy History of esophagogastroduodenoscopy (EGD) No pertinent past surgical history Social History Household Members: Other Household Members Other:: PARENTS AND BROTHER Housing: House Alcohol intake: current Alcohol intake frequency: holidays/special occasions only Patient Tobacco Use Status: Never used Tobacco e-Cigarette/Vaping Use: Never Used Second Hand Smoke Exposure: No service: No Current occupational status: employed Cognitive needs: No Hearing needs: No Vision needs: Yes (glasses) Review of Systems Const Denies daytime sleepiness, Denies excessive sweating, Denies fatigue, Denies fever(s), Denies lethargy, Denies malaise, Denies night sweats, Denies snoring and Denies weight loss Eyes Denies blurry vision and Denies itchy eyes ENT Denies nasal congestion, Denies post nasal drip, Denies sinus pain, Denies sinus pressure and Denies other ( Thrush) Card Denies chest pain, Denies pedal edema, Denies dyspnea, Denies orthopnea and Denies paroxysmal nocturnal dyspnea Resp Denies cough, Denies hemoptysis, Denies excessive phlegm production, Denies dyspnea, Denies snoring and Denies wheezing GI Denies abdominal pain and Denies heartburn Musc Denies myalgias, Denies arthralgias and Denies joint swelling Skin/Breast Denies rash Neuro Denies memory loss and Denies seizure-like activity Psych Denies abnormal sleep pattern, Denies anxiety and Denies memory loss Endo Denies excessive sweating, Denies fatigue and Denies heat intolerance Trevin/Lymph Denies easy bruising Aller/Immun Denies itchy eyes, Denies seasonal rhinorrhea and Denies wheezing Physical Exam Vital Signs: Last Vital Signs Pulse 103 H 06/11/24 10:02 BP 100/76 06/11/24 10:02 Pulse Ox 98 06/11/24 10:02 Oxygen Delivery Method Room Air 06/11/24 10:02 BMI result Body Mass Index 23.1 Const General: no acute distress and alert Nutritional Appearance: not obese Orientation/consciousness: Other orientation findings ( oriented) HEENT Head: Yes atraumatic Eyes General: appearance normal, both eyes and all related structures Sclerae: sclerae normal EOM: EOMs intact bilaterally Neck Neck: Yes supple Lymphatic: no lymphadenopathy noted Resp Effort & Inspection: normal respiratory effort and no use of accessory muscles Auscultation: clear to auscultation bilaterally Cardio Rate: regular rate Rhythm: regular rhythm Heart sounds: no gallops, no murmurs and no rubs Skin General skin exam: other ( warm) Extrem General: No clubbing, No cyanosis and No edema Assessment & Plan Assessment & Plan (1) Pulmonary abscess: Code(s): J85.2 - Abscess of lung without pneumonia Category: Medical (2) Cavitary lesion of lung: Code(s): J98.4 - Other disorders of lung Category: Medical Plan Fungal cystitis negative. Aspergilloma unlikely. Will repeat CT chest in 4 months. Orders: Orders CT chest wo IV con 09/23/24 J98.4 - Other disorders of lung Coding Level of Care Code Est Pt Level 4 (56513) Diagnoses Pulmonary abscess J85.2 Cavitary lesion of lung J98.4
== END 2024-06-11 10:16 | disposition home or self-care (01) ==
PROVIDERS: PCP Internal Medicine; Visit Provider Internal Medicine Pulmonary Disease
DX: J85.2 Abscess of lung without pneumonia (principal); J98.4 Other disorders of lung
CPT/HCPCS: 99214

== ENCOUNTER 2024-07-21 09:11 | Outpatient (AMB) | payer OTHER, SELFPAY ==
--- NOTE | 2024-07-21 09:20 | A.OFFPC_ITS ---
Vital Signs 07/21/24 09:21 Height 5 ft 10 in Weight 161 lb 8 oz BMI 23.2 BP 110/60 Blood Pressure Location Lt brachial Position Sitting Pulse 110 H Pulse Source Pulse Oximeter Temp 97.1 F Temp Source Skin Pulse Oximetry (%) 98 Oxygen Delivery Method Room Air Intake Visit Reasons: follow up on DM Intake Note: Patient is here to follow up on DM. 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 Trulicity injections blood sugar diagnostic ([employer] Ultra Test strips) As directed once per day blood-glucose meter (Diagnoplexuch Ultra2 Meter) As directed once per day dulaglutide (Trulicity) 0.75 mg (0.5 mL) subcut QWEEK empagliflozin (Jardiance) 25 mg PO DAILY ferrous gluconate 240 mg PO DAILY gabapentin 100 mg PO BEDTIME 90 days lancets (Diagnoplexuch Delica Plus Lancet) As directed once per day lisinopril 10 mg PO DAILY peg 3350-electrolytes 236-22.74-6.74 -5.86 gram (Golytely) 240 mL PO Q10M Tobacco use date assessed: 07/21/24 Dental Screening Dental Screen Date: 07/21/24 Did you have a dental visit in the last 12 months?: No Did you have a dental problem in the last 6 months where you did not have access to dental care?: No Was dental information given to patient?: No PFSH Medical History Pulmonary abscess Inflammatory bowel disease (Crohn's disease) Type 2 diabetes mellitus without complications Acute iritis Surgical History Hx of colonoscopy History of esophagogastroduodenoscopy (EGD) No pertinent past surgical history Social History Household Members: Other Household Members Other:: PARENTS AND BROTHER Housing: House Alcohol intake: current Alcohol intake frequency: holidays/special occasions only Patient Tobacco Use Status: Never used Tobacco e-Cigarette/Vaping Use: Never Used Second Hand Smoke Exposure: No service: No Current occupational status: employed Cognitive needs: No Hearing needs: No Vision needs: Yes (glasses) Questionnaire PHQ-9 Over the last 2 weeks, how often have you been bothered by any of the following problems? 1. Little interest or pleasure in doing things: not at all 2. Feeling down, depressed, or hopeless: not at all 3. Trouble falling or staying asleep, or sleeping too much: not at all 4. Feeling tired or having little energy: not at all 5. Poor appetite or overeating: not at all 6. Feeling bad about yourself - or that you are a failure or have let yourself or your family down: not at all 7. Trouble concentrating on things, such as reading the newspaper or watching television: not at all 8. Moving or speaking so slowly that other people could have noticed. Or the opposite - being so fidgety or restless that you have been moving around a lot more than usual: not at all 9. Thoughts that you would be better off or of hurting yourself in some way: not at all Total score: 0 Depression Screening Interpretation: Negative Depression Screening Done: Yes 50931 - PHQ-9 Billing: Yes Source: Developed by Drs. Ed Ewing, Alicia Garcia, Lonnie Caballero and colleagues, with an educational radha from [employer]. Thrive Questionnaire Date Thrive assessed: 07/21/24 I am a: Patient What is your living situation today?: I have a steady place to live Within the past 12 months, did the food you bought not last and you didn't have the money to get more?: Never true Within the past 12 months, did you worry whether your food would run out before you got money to buy more?: Never true Do you have trouble paying for medicines?: No Do you have trouble getting transportation to medical appointments?: No Do you have trouble paying your heating and electricity bill?: No Do you have trouble taking care of your child, family member or friend?: No Do you have trouble with day-to-day activities such as bathing, preparing meals, shopping, managing finances, etc.?: No Are you currently unemployed and looking for a job?: No Are you interested in more education?: No Please select the resources that you would like help with: None Currently or been in a relationship where the following occur: No concerns reported THRIVE Score: 0 AUDIT C Alcohol Use Questionnaire (AUDIT-C) 1. How often do you have a drink containing alcohol?: 2-4 times a month 2. How many drinks containing alcohol do you have on a typical day when you are drinking?: 1 or 2 3. How often do you have six or more drinks on one occasion?: Never Total Score: 2 Score Reviewed/Action Taken: Yes (Score reviewed) ESA-7 AMB Questionnaire ESA-7 Date ESA - 7 assessed: 07/21/24 Feeling nervous, anxious, or on edge: 0 = Not at all Not being able to stop or control worryin = Not at all Worrying too much about different things: 0 = Not at all Trouble relaxin = Not at all Being so restless that it is hard to sit still: 0 = Not at all Becoming easily annoyed or irritable: 0 = Not at all Feeling afraid as if something awful might happen: 0 = Not at all Total ESA-7 score (0-4 normal; 5-9 mild; 10-14 moderate; 15-21 severe): 0 Source: Developed by Drs. Ed Ewing, Alicia Garcia, Lonnie Caballero and colleagues, with an educational radha from [employer]. ESA-7 Assessment Billing ESA-7 Assessment Tool: ESA-7 Assessment 41729 Physical exam (Primary Care) Vital Signs: Last Vital Signs Temp 97.1 F 07/21/24 09:21 Pulse 110 H 07/21/24 09:21 BP 110/60 07/21/24 09:21 Pulse Ox 98 07/21/24 09:21 Oxygen Delivery Method Room Air 07/21/24 09:21 Care Plan Goal for BP management: <130/80 at Goal today BMI result Body Mass Index 23.2 Normal BMI Tobacco/Smoking Status: Tobacco use Status Tobacco use date assessed 07/21/24 07/21/24 09:26 Patient Tobacco Use Status Never used Tobacco 07/21/24 09:26 e-Cigarette/Vaping Use Never Used 07/21/24 09:26 PHQ-9: PHQ-9 Score PHQ-9: Total score 0 07/21/24 09:26 Depression Screening Interpretation: Negative Thrive Assessment: Date of Thrive Assessment Date Thrive assessed 07/21/24 07/21/24 09:26 Currently or been in a relationship where the following occur: No concerns reported Office Procedures Flu Questionnaire Does the patient have a severe egg allergy?: No Does the patient have severe life threatening allergies?: No Does the patient have a fever or illness today?: No Has the patient ever had Guillain-Arona Syndrome?: No Has the patient ever had any past reaction to a flu shot?: No Immunizations Fluarix Triv 1809-1125 (PF) 45 mcg (15 mcg x 3)/0.5 mL IM syringe Performing Provider: Bety Luna PA-C Performing Location: [facility] Administered by: Sara Escobar LPN on 07/21/24 09:47 Dose Route Admin Location Dispensed Lot Number Expiration Date [facility] Principal Database Developer 0.5 mL IM Right Deltoid 0.5 mL [id number] 12/22/24 [id number] eVendor Check VIS Given Date VIS Provided VIS Publication Date 07/21/24 Single Vaccine 21 Eligibility Eligibility Date Funding Source Not [facility] Eligible 07/21/24 Private Coding Level of Care Code Est Pt Level 4 (49299) Complex EM visit Add On G2211 Diagnoses Type 2 diabetes mellitus without complications E11.9 Hypertension I10 Inflammatory bowel disease (Crohn's disease) K50.90 Neuropathy G62.9 Additional Codes PHQ-9 - 52866 - PHQ-9 Billing: Yes ([id number]) ESA-7 Assessment Billing - ESA-7 Assessment Tool: ESA-7 Assessment 12342 ([id number]) Assessment & Plan Assessment & Plan (1) Type 2 diabetes mellitus without complications: Code(s): E11.9 - Type 2 diabetes mellitus without complications Category: Medical Plan: Continue Jardiance 15 mg daily along with Trulicity weekly to maintain A1c level below 6.5. Will reassess at next visit in 3-6 months. Condition is chronic and stable. (2) Hypertension: Code(s): I10 - Essential (primary) hypertension Category: Medical Plan: Patient to continue taking lisinopril 10 mg as prescribed. Blood pressure at goal today at 110/60. Condition is chronic and stable. (3) Inflammatory bowel disease (Crohn's disease): Code(s): K50.90 - Crohn's disease, unspecified, without complications Category: Medical Plan: Patient being followed by GI. Reports after discontinuing metformin the diarrhea has improved. Condition is chronic and stable (4) Neuropathy: Code(s): G62.9 - Polyneuropathy, unspecified Category: Medical Plan: Patient will be started on gabapentin 100 mg at bedtime we may titrate up slowly. Condition is chronic and stable will continue to monitor. Plan Plan - maintain diabetes management with Jardiance and Trulicity. - Maintain Lisinopril regimen for hypertension management. - Schedule a follow-up colonoscopy with gastroenterology for Crohn's Disease surveillance. - Recommend routine eye exams as previously conducted. Orders: Orders Influenza [id number] Immunization Today Z23 - Encounter for immunization Medications: New gabapentin 100 mg PO BEDTIME 90 days 90 caps 1RF Patient Instructions: Patient Instructions - Continue current medications: Jardiance 25 mg daily, Trulicity 0.5 mg weekly, and Lisinopril as prescribed. - Monitor blood glucose levels daily and report any further hypoglycemic events. 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 - Consider receiving the flu vaccine to aid in preventing influenza. - Follow up in 6 months for another routine diabetes management review unless concerns arise sooner. - Ensure regular eye exams and follow the advice of any referred specialists, like podiatry if necessary. Scribe Plan - Not visible on output: History of Present Illness The patient is a 33-year-old male presenting for a six-month follow-up for Type 2 Diabetes Mellitus. He reports generally good management of his diabetes with recent fasting blood glucose levels mostly in the low 100s milligrams per deciliter. The patient experienced one episode of hypoglycemia approximately three weeks ago, with blood glucose recorded at 70 mg/dL in the afternoon after regular meals. No significant illnesses were noted around this episode other th an a persistent cold over the past month. The patient is currently on Jardiance 25 mg daily and Trulicity 0.5 mg weekly, with previous management adjustments removing Metformin due to side effects. He maintains a daily blood glucose check in the morning. Regarding his hypertension, the patient confirms he is taking Lisinopril with a current blood pressure reading of 110/60 mmHg, indicating well-controlled hypertension. In the past, he reached 250 pounds before experiencing involuntary weight changes, potentially impacting management approaches. The patient has a history of Crohn's Disease, with previous gastrointestinal evaluations revealing familial IBD (Irritable Bowel Disease) tendencies but no colon cancers. He is scheduled for a colonoscopy with a cupola melting supervisor soon. Previous lab work conducted in April returned within normal limits, with A1C level 5.7. Social History - Reports being sick with a cold over the past month, common in the family. - No recent family history of colon cancer; however, a family history of IBD is noted. - Reports regular follow-ups with a gastroenterology specialist. Review of Systems - Gastrointestinal: Reports diarrhea, possible link to Crohn's Disease. Physical Exam Appearance: Alert. Oriented X3. No acute distress. Head: Normal external exam. Normocephalic. Atraumatic. Eyes: Pupils are equal, round, and reactive to light. Extraocular movements intact. Conjunctiva and sclera normal. Eyelids normal. Ears: External auditory canal normal. Tympanic membranes normal. Throat: Pharynx normal. Uvula midline. Moist mucous membranes. Neck: Normal inspection. Neck supple. Full range of motion. No adenopathy. Thyroid Normal. No meningeal signs. No neck mass noted. Cardiovascular: Normal heart rate and rhythm. Heart sound normal. No murmurs noted. Pulses normal throughout. Blood pressure is 110/60. Respiratory: No respiratory distress. Painless inspiration. Breath sounds normal. No wheezes/rales/rhonchi noted. Chest nontender. No accessory muscle usage noted or decreased air movement noted. Abdomen: Soft and nontender. Bowel sounds normal in all 4 quadrants. No distention noted. No organomegaly noted. No visible injury noted. Back: No costovertebral angle tenderness. Full range of motion noted. Skin: Skin warm and dry. Normal skin color. Normal skin turgor. No rashes/lesions/lacerations noted. Some small wounds on feet, nothing significant. Extremities: No lower extremity edema. Extremities exhibit normal range of motion. Extremities nontender. Neuro: Oriented X 3. No motor deficit. No sensory deficit. Reflexes normal. Results - Labs: Fasting blood glucose levels recorded as 122 mg/dL (latest), 102 mg/dL (previous day), 114 mg/dL, and 132 mg/dL. - Past labs in April were within normal ranges. - A1C level 5.7 Plan - maintain diabetes management with Jardiance and Trulicity. - Maintain Lisinopril regimen for hypertension management. - Schedule a follow-up colonoscopy with gastroenterology for Crohn's Disease surveillance. - Recommend routine eye exams as previously conducted. Patient was informed and verbally consented to the use of an ambient scribe for clinic note documentation during this visit. Discussion Notes During the consultation, we discussed the patient's current management of Type 2 Diabetes Mellitus, emphasizing his stable fasting glucose levels apart from a solitary hypoglycemic incident. We reviewed the importance of consistent medication adherence and the potential side effects of previous drugs such as Metformin. The patient?s positive response to the current pharmaceutical regimen was encouraged. Further, the management plan for hypertension and Crohn's Disease was evaluated, emphasizing sustained blood pressure control under Lisinopril and the plan for upcoming diagnostic evaluation for gastrointestinal health. We discussed administering the flu vaccine and checked past lab work. The patient was assured his current symptoms are typical for recovering from a viral infection. Patient Instructions - Continue current medications: Jardiance 25 mg daily, Trulicity 0.5 mg weekly, and Lisinopril as prescribed. - Monitor blood glucose levels daily and report any further hypoglycemic events. 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 - Consider receiving the flu vaccine to aid in preventing influenza. - Follow up in 6 months for another routine diabetes management review unless concerns arise sooner. - Ensure regular eye exams and follow the advice of any referred specialists, like podiatry if necessary.
[2024-07-21 09:21] VITALS: BP 110/60; PULSE 110; TEMP 36.2; O2SAT 98; BMI 23.2
== END 2024-07-21 09:48 | disposition home or self-care (01) ==
PROVIDERS: PCP Internal Medicine; Visit Provider Physician Assistant Medical
DX: E11.42 Type 2 diabetes mellitus with diabetic polyneuropathy (principal); K50.90 Crohn's disease, unspecified, without complications; I10 Essential (primary) hypertension; G62.9 Polyneuropathy, unspecified; Z23 Encounter for immunization

== ENCOUNTER → 2024-07-21 09:11 | Outpatient (BNVA) | payer OTHER, SELFPAY | PROVIDERS: PCP Internal Medicine; Visit Provider Physician Assistant Medical | DX: E11.40 Type 2 diabetes mellitus with diabetic neuropathy, unspecified (principal); I10 Essential (primary) hypertension; K50.90 Crohn's disease, unspecified, without complications; Z79.899 Other long term (current) drug therapy; Z23 Encounter for immunization | CPT/HCPCS: 90471; 90656; 96127 ==

== ENCOUNTER 2024-09-18 07:26 | Outpatient (REF) | payer OTHER, SELFPAY ==
--- NOTE | ~2024-09-18 | CT_ITS ---
EXAMINATION: CT CHEST WITHOUT IV CONTRAST INDICATION: J98.4 - Other disorders of lung COMPARISON: Yaya is made with the prior examination dated 02/08/2024. TECHNIQUE: Helical CT scan of the chest was performed without intravenous contrast. Coronal and sagittal reformatted images were generated and reviewed. This CT exam was performed with one or more of the following dose reduction techniques: automated exposure control, adjustment of the mA and/or kV according to patient size, use of iterative reconstruction technique. DLP: 141 mGy-cm CHEST: THYROID: The thyroid is unremarkable. LUNGS: There has been further evolution of the previously described cavitary lesion in the left upper lobe. The lesion is overall smaller in size measuring 3.9 x 3.4 x 1.8 cm (previously 6.8 x 3.9 x 2.7 cm), but appears more solid with only a small cavitary component. Patchy airspace opacities at the right lung base and in the superior segment of the left lower lobe are again noted. There is been improved aeration of the left lower lobe since the prior study. No new lung lesion is identified. MEDIASTINUM: Prominent AP window lymph nodes are again noted measuring up to 2.1 cm in size. WILLIAM: Evaluation of the hilar regions is limited by lack of intravenous contrast material. CARDIOVASCULATURE: The heart is normal in size. There is no pericardial effusion. The thoracic aorta is normal in caliber. DEGREE OF CORONARY CALCIFICATION: none PLEURA: There is no pleural effusion. No pneumothorax. MAIN AIRWAYS: The mainstem bronchi and proximal branches are patent. AXILLA: There is no axillary lymphadenopathy. BONES AND SOFT TISSUES: Unremarkable UPPER ABDOMEN: The visualized portions of the liver and adrenals have an unremarkable unenhanced appearance. The spleen is enlarged. CT/CT chest wo IV con IMPRESSION: The previously seen left upper lobe cavitary lesion is smaller in overall size but appears more solid. Neoplasm is not excluded and imaging guided biopsy should be considered. Electronically signed by: Ed Null MD 09/18/2024 08:58 AM EDT
== END 2024-09-18 07:27 | disposition home or self-care (01) ==
LOC: HO.CT 07:26
PROVIDERS: PCP Internal Medicine; Visit Provider Internal Medicine Pulmonary Disease
DX: J98.4 Other disorders of lung (principal)
CPT/HCPCS: 71250

== ENCOUNTER → 2024-09-18 07:27 | Outpatient (BNV) | payer OTHER, SELFPAY | PROVIDERS: PCP Internal Medicine; Visit Provider Radiology Diagnostic Radiology | DX: J98.4 Other disorders of lung (principal) | CPT/HCPCS: 71250 ==

== ENCOUNTER 2024-10-01 13:25 | Outpatient (AMB) | payer OTHER, SELFPAY ==
--- NOTE | 2024-10-01 13:28 | MHC.OFFVIS ---
Vital Signs 10/01/24 13:36 Height 5 ft 10 in Weight 175 lb BMI 25.1 BP 106/62 Blood Pressure Location Rt brachial Position Sitting Pulse 92 Pulse Source Doppler Pulse Oximetry (%) 98 Oxygen Delivery Method Room Air Intake Visit Reasons: HDF Cavitary lesion Allergies mercaptopurine Adverse Reaction (Intermediate, Verified 07/21/24 09:45) pancreatitis HPI HPI HDF Cavitary lesion: Details: 34-year-old gentleman followed for persistent MSSA abscess, now with significant improvement, but not complete resolution. Patient at this time is essentially asymptomatic. [facility] Medical History Pulmonary abscess Inflammatory bowel disease (Crohn's disease) Type 2 diabetes mellitus without complications Acute iritis Surgical History Hx of colonoscopy History of esophagogastroduodenoscopy (EGD) No pertinent past surgical history Social History Household Members: Other Household Members Other:: PARENTS AND BROTHER Housing: House Alcohol intake: current Alcohol intake frequency: holidays/special occasions only Patient Tobacco Use Status: Never used Tobacco e-Cigarette/Vaping Use: Never Used Second Hand Smoke Exposure: No service: No Current occupational status: employed Cognitive needs: No Hearing needs: No Vision needs: Yes (glasses) Review of Systems Const Denies daytime sleepiness, Denies excessive sweating, Denies fatigue, Denies fever(s), Denies lethargy, Denies malaise, Denies night sweats, Denies snoring and Denies weight loss Eyes Denies blurry vision and Denies itchy eyes ENT Denies nasal congestion, Denies post nasal drip, Denies sinus pain, Denies sinus pressure and Denies other ( Thrush) Card Denies chest pain, Denies pedal edema, Denies dyspnea, Denies orthopnea and Denies paroxysmal nocturnal dyspnea Resp Denies cough, Denies hemoptysis, Denies excessive phlegm production, Denies dyspnea, Denies snoring and Denies wheezing GI Denies abdominal pain and Denies heartburn Musc Denies myalgias, Denies arthralgias and Denies joint swelling Skin/Breast Denies rash Neuro Denies memory loss and Denies seizure-like activity Psych Denies abnormal sleep pattern, Denies anxiety and Denies memory loss Endo Denies excessive sweating, Denies fatigue and Denies heat intolerance Trevin/Lymph Denies easy bruising Aller/Immun Denies itchy eyes, Denies seasonal rhinorrhea and Denies wheezing Physical Exam Vital Signs: Last Vital Signs Pulse 92 10/01/24 13:36 BP 106/62 10/01/24 13:36 Pulse Ox 98 10/01/24 13:36 Oxygen Delivery Method Room Air 10/01/24 13:36 BMI result Body Mass Index 25.1 Const General: no acute distress and alert Nutritional Appearance: not obese Orientation/consciousness: Other orientation findings ( oriented) HEENT Head: Yes atraumatic Eyes General: appearance normal, both eyes and all related structures Sclerae: sclerae normal EOM: EOMs intact bilaterally Neck Neck: Yes supple Lymphatic: no lymphadenopathy noted Resp Effort & Inspection: normal respiratory effort and no use of accessory muscles Auscultation: clear to auscultation bilaterally Cardio Rate: regular rate Rhythm: regular rhythm Heart sounds: no gallops, no murmurs and no rubs Skin General skin exam: other ( warm) Extrem General: No clubbing, No cyanosis and No edema Assessment & Plan Assessment & Plan (1) Cavitary lesion of lung: Code(s): J98.4 - Other disorders of lung Category: Medical Plan: Results of follow-up CT chest reviewed, abscess cavity shrunk by about half, but still with dense material inside, will repeat CT chest in 6 months. Orders: Orders CT chest wo IV con 04/02/25 J98.4 - Other disorders of lung Coding Level of Care Code Est Pt Level 3 (05633) Diagnoses Cavitary lesion of lung J98.4
[2024-10-01 13:36] VITALS: BP 106/62; PULSE 92; O2SAT 98; BMI 25.1
== END 2024-10-01 14:00 | disposition home or self-care (01) ==
PROVIDERS: PCP Internal Medicine; Visit Provider Internal Medicine Pulmonary Disease
DX: J98.4 Other disorders of lung (principal)
CPT/HCPCS: 99213

== ENCOUNTER 2025-01-06 08:35 | Outpatient (REF) | payer OTHER, SELFPAY ==
[2025-01-06 10:43] LABS: Anion Gap 13 (12-20); Blood Urea Nitrogen 27 mg/dL (9-16); Calcium 9.5 mg/dL (8.4-10.2); Carbon Dioxide 27 mmol/L (22-29); Chloride 105 mmol/L (96-108); Estimated Glomerular Filt Rate 53; Potassium 4.8 mmol/L (3.3-5.1); Sodium 140 mmol/L (135-145)
== END 2025-01-06 08:36 | disposition home or self-care (01) ==
LOC: HO.HMGCLDS 08:35
PROVIDERS: PCP Internal Medicine; Visit Provider Internal Medicine
DX: J85.2 Abscess of lung without pneumonia (principal); K50.90 Crohn's disease, unspecified, without complications; E11.9 Type 2 diabetes mellitus without complications
CPT/HCPCS: 36415; 80048

== ENCOUNTER 2025-01-15 08:29 | Outpatient (AMB) | payer OTHER, SELFPAY ==
--- NOTE | 2025-01-15 08:56 | A.OFFPC_ITS ---
Vital Signs 01/15/25 08:58 Height 5 ft 10 in Weight 180 lb 8 oz BMI 25.9 BP 120/64 Blood Pressure Location Lt brachial Position Sitting Pulse 102 H Pulse Source Pulse Oximeter Temp 97.3 F Temp Source Temporal Artery Scan Pulse Oximetry (%) 99 Oxygen Delivery Method Room Air Intake Visit Reasons: 6 month f/u Intake Note: Patient is here to follow up on DM, HTN, Crohn's disease. Bowling Alley Manager Required: No Behaviour Support Teacher: Not Required per policy Accompanied by: Self / Same As Patient Allergies mercaptopurine Adverse Reaction (Intermediate, Verified 01/15/25 08:57) pancreatitis Tobacco use date assessed: 01/15/25 Dental Screening Dental Screen Date: 07/21/24 [facility] Medical History Pulmonary abscess Inflammatory bowel disease (Crohn's disease) Type 2 diabetes mellitus without complications Acute iritis Surgical History Hx of colonoscopy History of esophagogastroduodenoscopy (EGD) No pertinent past surgical history Social History Household Members: Other Household Members Other:: PARENTS AND BROTHER Housing: House Alcohol intake: current Alcohol intake frequency: holidays/special occasions only Patient Tobacco Use Status: Never used Tobacco e-Cigarette/Vaping Use: Never Used Second Hand Smoke Exposure: No service: No Current occupational status: employed Cognitive needs: No Hearing needs: No Vision needs: Yes (glasses) Questionnaire PHQ-9 Over the last 2 weeks, how often have you been bothered by any of the following problems? 1. Little interest or pleasure in doing things: not at all 2. Feeling down, depressed, or hopeless: not at all 3. Trouble falling or staying asleep, or sleeping too much: not at all 4. Feeling tired or having little energy: not at all 5. Poor appetite or overeating: several days 6. Feeling bad about yourself - or that you are a failure or have let yourself or your family down: several days 7. Trouble concentrating on things, such as reading the newspaper or watching television: not at all 8. Moving or speaking so slowly that other people could have noticed. Or the opposite - being so fidgety or restless that you have been moving around a lot more than usual: not at all 9. Thoughts that you would be better off or of hurting yourself in some way: not at all Total score: 2 Depression Screening Interpretation: Positive Depression Screening Done: Yes Source: Developed by Drs. Ed Ewing, Alicia Garcia, Lonnie Caballero and colleagues, with an educational radha from [employer]. Thrive Questionnaire Date Thrive assessed: 01/15/25 I am a: Patient What is your living situation today?: I have a steady place to live Within the past 12 months, did the food you bought not last and you didn't have the money to get more?: Never true Within the past 12 months, did you worry whether your food would run out before you got money to buy more?: Never true Do you have trouble paying for medicines?: No Do you have trouble getting transportation to medical appointments?: No Do you have trouble paying your heating and electricity bill?: No Do you have trouble taking care of your child, family member or friend?: No Do you have trouble with day-to-day activities such as bathing, preparing meals, shopping, managing finances, etc.?: No Are you currently unemployed and looking for a job?: No Are you interested in more education?: No Please select the resources that you would like help with: None Currently or been in a relationship where the following occur: No concerns reported THRIVE Score: 0 AUDIT C Alcohol Use Questionnaire (AUDIT-C) 1. How often do you have a drink containing alcohol?: Monthly or less Total Score: 1 ESA-7 AMB Questionnaire ESA-7 Date ESA - 7 assessed: 01/15/25 Feeling nervous, anxious, or on edge: 0 = Not at all Not being able to stop or control worryin = Not at all Worrying too much about different things: 0 = Not at all Trouble relaxin = Several days Being so restless that it is hard to sit still: 0 = Not at all Becoming easily annoyed or irritable: 1 = Several days Feeling afraid as if something awful might happen: 0 = Not at all Total ESA-7 score (0-4 normal; 5-9 mild; 10-14 moderate; 15-21 severe): 2 Source: Developed by Drs. Ed Ewing, Alicia Garcia, Lonnie Caballero and colleagues, with an educational radha from [employer]. Physical exam (Primary Care) Vital Signs: Last Vital Signs Temp 97.3 F 01/15/25 08:58 Pulse 102 H 01/15/25 08:58 BP 120/64 01/15/25 08:58 Pulse Ox 99 01/15/25 08:58 Oxygen Delivery Method Room Air 01/15/25 08:58 BMI result Body Mass Index 25.9 Tobacco/Smoking Status: Tobacco use Status Tobacco use date assessed 01/15/25 01/15/25 09:20 Patient Tobacco Use Status Never used Tobacco 01/15/25 09:20 e-Cigarette/Vaping Use Never Used 01/15/25 09:20 PHQ-9: PHQ-9 Score PHQ-9: Total score 2 01/15/25 09:20 Depression Screening Interpretation: Positive Thrive Assessment: Date of Thrive Assessment Date Thrive assessed 01/15/25 01/15/25 09:20 Currently or been in a relationship where the following occur: No concerns reported Results AMB Hemoglobin A1c AMB Hemoglobin A1c 5.9 % Last Edit by ANKUSH Perez on 01/15/25 09:29 Results Reviewed Results Reviewed: Laboratory Last Values Hgb A1c (Clinic) 5.9 % (4.0-6.0) 01/15/25 08:55 Coding Level of Care Code Tele Est Pt Level 4 (74932) Complex EM visit Add On G2211 Diagnoses Peripheral neuropathy G62.9 Assessment & Plan Assessment & Plan (1) Peripheral neuropathy: Code(s): G62.9 - Polyneuropathy, unspecified Plan: Neuro consult. A1c in range. Plan History of Present Illness - The patient is a 34-year-old male presenting with diabetic neuropathy. - Neuropathy in the feet is worsening, with symptoms of burning, tingling, and numbness in the big toe. - No neurologist consultation has been done for this condition. - Diabetic socks have been adopted to alleviate symptoms. - History of a pulmonary cavity, now 95% healed, with ongoing vessel ordinary seaman follow-up. - Diabetes mellitus is well-controlled with tightly managed blood sugar levels. - Recent blood work indicates good A1c levels, with a slight increase in kidney function. 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 - Functional status: Able to perform all activities and works five days a week. Review of Systems - Neurological: Reports burning, tingling, and numbness in the feet, particularly the big toe. - Respiratory: Denies any unresolved issues with the pulmonary cavity, which is 95% healed. Physical Exam General: Cooperative and healthy appearing Nutritional Appearance: Well nourished Orientation/consciousness: Patient oriented x3 Limitations: No limitations Head: Normal to inspection General: Appearance normal, both eyes and all related structures Neck: Normal visual inspection Chest: Normal palpation of entire chest wall Respiratory: 95% healed up ormal respiratory effort Neurology: Neuropathy in the feet, burning and tingling in the legs, big toe is numb, patient oriented x3 Results - Labs: A1c levels are good, kidney function has slightly increased. Plan 1. Diabetic Neuropathy - Referral to a neurologist for further evaluation and management. - Prescription for gabapentin to manage neuropathic pain. 2. Pulmonary Cavity - Continue follow-up with vessel ordinary seaman to monitor healing progress. 3. Diabetes Mellitus - Maintain current diabetes management plan with tightly controlled blood sugar levels. - Additional blood work to monitor kidney function and complete WBC count. Discussion Notes I discussed with the patient the need for a neurology referral to evaluate the neuropathy further. We also talked about the importance of maintaining good diabetes control and the need for additional blood work to monitor kidney function. I will prescribe gabapentin for neuropathic pain management and advised the patient to continue follow-up with the vessel ordinary seaman for the pulmonary cavity. Patient Instructions - Follow up with the neurologist as referred. - Continue taking gabapentin as prescribed. - Maintain current diabetes management plan. - Complete additional blood work as ordered. - Continue follow-up with the vessel ordinary seaman. Orders: Orders AMB Hemoglobin A1c Today E11.9 - Type 2 diabetes mellitus without complications Vitamin B12 and Folate Today G62.9 - Polyneuropathy, unspecified Complete Blood Count no Diff Today G62.9 - Polyneuropathy, unspecified Referrals Neurology Referral G62.9 - Polyneuropathy, unspecified Medications: Refilled gabapentin 100 mg PO BEDTIME 90 caps 1RF 90 days
[2025-01-15 08:58] VITALS: BP 120/64; PULSE 102; TEMP 36.3; O2SAT 99; BMI 25.9
== END 2025-01-15 09:45 | disposition home or self-care (01) ==
LOC: HO.HMCH 08:30
PROVIDERS: PCP Internal Medicine; Visit Provider Internal Medicine
DX: E11.42 Type 2 diabetes mellitus with diabetic polyneuropathy (principal); G62.9 Polyneuropathy, unspecified

== ENCOUNTER → 2025-01-15 08:29 | Outpatient (BNVA) | payer OTHER, SELFPAY | PROVIDERS: PCP Internal Medicine; Visit Provider Internal Medicine | DX: E11.40 Type 2 diabetes mellitus with diabetic neuropathy, unspecified (principal); Z13.31 Encounter for screening for depression; Z13.39 Encounter for screening examination for other mental health and behavioral disorders | CPT/HCPCS: 83036; 96127 ==

== ENCOUNTER 2025-01-22 08:12 | Outpatient (AMB) | payer OTHER, SELFPAY ==
--- NOTE | 2025-01-22 08:30 | MHC.OFFVIS ---
Vital Signs 01/22/25 08:30 Height 5 ft 10 in Intake Visit Reasons: I-ETHYL BLENDER: Polyneuropathy unspecified Allergies mercaptopurine Adverse Reaction (Intermediate, Verified 01/22/25 08:31) pancreatitis HPI Comments Details: 34-year-old man with hypertension and type 2 diabetes here with numbness, tingling, and occasional pain to lower extremities. It first started about 1 year ago with numbness and tingling to feet which slowly spread up to mid-shins bilaterally. Numbness was worse in feet, R > L, particularly in R great toe. He has some pain in toes at night, R > L, usually throbbing-type, which gabapentin 100mg helps with and is able to sleep. If he forgets to take medication, sleep was disrupted from pain. Balance was okay, no falls. He denied any significant alcohol use. [facility] Medical History Pulmonary abscess Inflammatory bowel disease (Crohn's disease) Type 2 diabetes mellitus without complications Acute iritis Surgical History Hx of colonoscopy History of esophagogastroduodenoscopy (EGD) No pertinent past surgical history Social History Household Members: Other Household Members Other:: PARENTS AND BROTHER Housing: House Alcohol intake: current Alcohol intake frequency: holidays/special occasions only Patient Tobacco Use Status: Never used Tobacco e-Cigarette/Vaping Use: Never Used Second Hand Smoke Exposure: No service: No Current occupational status: employed Cognitive needs: No Hearing needs: No Vision needs: Yes (glasses) Review of Systems Const Denies chills, Denies daytime sleepiness, Denies difficulty sleeping, Denies fatigue, Denies fever(s), Denies frequent falls, Denies headache(s), Denies increased appetite, Denies poor appetite, Denies snoring, Denies weakness, Denies weight gain and Denies weight loss Eyes Denies loss of vision ENT Denies vertigo, Denies dizziness and Denies headache(s) Card Denies chest pain at rest, Denies chest pain with activity, Denies syncope, Denies leg edema and Denies palpitations Resp Denies snoring GI Denies constipation, Denies heartburn, Reports diarrhea and Denies nausea Denies urinary frequency, Denies urinary incontinence and Denies urinary urgency Musc Denies abnormal gait, Reports numbness and Reports tingling Skin/Breast Denies dry skin and Denies rash Neuro Denies abnormal gait, Denies vertigo, Denies dizziness, Denies syncope, Denies frequent falls, Denies headache(s), Denies lack of coordination, Denies loss of vision, Denies memory loss, Reports numbness, Denies restless legs, Denies seizure-like activity, Reports tingling, Denies paresthesias, Denies tremor(s) and Denies weakness Psych Denies anxiety, Denies depression, Denies auditory hallucinations, Denies memory loss, Denies visual hallucinations and Denies suicidal ideation Endo Denies fatigue and Denies palpitations Physical Exam Const Other: General Appearance:? normal, in no acute distress. Head:? normocephalic, atraumatic. Eyes:? sclera non-icteric, conjunctiva clear. Ears:? auditory canal clear, tympanic membrane intact, clear. Nose:? no lesions. Oral Cavity:? gums normal, mucosa moist, no lesions. Throat:? clear. Neck/Thyroid:? no cervical lymphadenopathy. Skin:? no rashes, no significant birthmarks. Heart:? S1, S2 normal, no murmurs. Lungs:? clear anteriorly and posteriorly. Chest:? no gross rib deformity, clear to auscultation. Extremities:? no edema. Psych:? alert, oriented, cognitive function intact, cooperative with exam. Neuro Other: Mental Status:?Normal attention, orientation, memory and affect.? Cranial Nerves:?Pupils are equal, round and reactive to light. External occular muscles are intact. Visual mora are full. Face is symmetrical. Facial sensations are normal. Tongue is midline. Palate elevates symmetrically. Shoulder shrugging is normal. Hearing to bedside conversation is normal. Motor Examination:?Normal muscle tone, bulk and strength,?Deep tendon reflexes are 2+,?Plantars are flexor.? Sensory Exam:?Decreased vibration and joint position sensation. Coordination:?No ataxia,?no titubation.? Gait Exam: Within normal limits. Cerebellar Signs:?[id number] is okay. Extrapyramidal System:?No tremor, rigidity with normal facial expressions.? Pronator Drift:?Not present.? Involuntary Movements:?No tremors seen.? Speech:?Normal.? Results Reviewed Results Reviewed: Laboratory Tests 01/06/25 08:38 Sodium 140 Potassium 4.8 Chloride 105 Carbon Dioxide 27 Anion Gap 13 BUN 27 H Creatinine 1.50 H Estimated GFR 53 Random Glucose 141 H Calcium 9.5 Laboratory Tests 01/15/25 08:55 Hgb A1c (Clinic) 5.9 Assessment & Plan Assessment & Plan (1) Diabetic neuropathy: Code(s): E11.40 - Type 2 diabetes mellitus with diabetic neuropathy, unspecified Category: Medical Qualifiers: Diabetes mellitus complication detail: diabetic polyneuropathy Diabetes mellitus type: type 2 Qualified Code(s): E11.42 - Type 2 diabetes mellitus with diabetic polyneuropathy Plan: Labs reviewed, diabetes currently well-controlled with last A1c 5.9. Continue to control blood sugar. He has not had NCV/EMG done and testing was ordered. Reviewed labs ordered r/o other neuropathy. Continue gabapentin 100mg 1 capsule at bedtime. Plan Exam, findings, and plan reviewed with Dr. Marks. Orders: Orders NE electromyogram (EMG) Today E11.42 - Type 2 diabetes mellitus with diabetic polyneuropathy Vitamin B12 and Folate Today E11.42 - Type 2 diabetes mellitus with diabetic polyneuropathy, G62.9 - Polyneuropathy, unspecified Immunofixation Pnl, Serum Today E11.42 - Type 2 diabetes mellitus with diabetic polyneuropathy, G62.9 - Polyneuropathy, unspecified NE nerve conduction velocity Today E11.42 - Type 2 diabetes mellitus with diabetic polyneuropathy KAM Reflex Titer and Pattern Today E11.42 - Type 2 diabetes mellitus with diabetic polyneuropathy, G62.9 - Polyneuropathy, unspecified Coding Level of Care Code New Pt Level 4 (75962) Diagnoses Diabetic polyneuropathy associated with type 2 diabetes mellitus E11.42 Diabetes mellitus complication detail: diabetic polyneuropathy Diabetes mellitus type: type 2
== END 2025-01-22 09:17 | disposition home or self-care (01) ==
LOC: HO.HSM 08:13
PROVIDERS: PCP Internal Medicine; Visit Provider Registered Nurse
DX: E11.42 Type 2 diabetes mellitus with diabetic polyneuropathy (principal)
CPT/HCPCS: 99204

== ENCOUNTER 2025-02-03 09:36 | Outpatient (REF) | payer OTHER, SELFPAY ==
[2025-02-03 14:10] LABS: Folate 14.7 ng/mL (> or = 4.0); Vitamin B12 591 pg/mL (200-900)
[2025-02-06 09:38] LABS: Anti Nuclear Antibody Screen NEGATIVE (NEGATIVE)
== END 2025-02-03 09:37 | disposition home or self-care (01) ==
LOC: HO.HMGCLDS 09:36
PROVIDERS: PCP Internal Medicine; Visit Provider Registered Nurse
DX: Z01.84 Encounter for antibody response examination (principal); E11.42 Type 2 diabetes mellitus with diabetic polyneuropathy; G62.9 Polyneuropathy, unspecified
CPT/HCPCS: 36415; 82607; 82746; 82784; 86038; 86334

== ENCOUNTER 2025-02-05 10:43 | Outpatient (REF) | payer OTHER, SELFPAY ==
--- NOTE | 2025-02-05 11:38 | EMG_ITS ---
Bilateral tibial and peroneal motor studies were performed bilateral superficial peroneal and sural sensory studies were performed tibial H reflexes were performed. For logistical reasons EMG was not done on this day. 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
== END 2025-02-05 10:44 | disposition home or self-care (01) ==
LOC: HO.NEURO 10:43
PROVIDERS: PCP Internal Medicine; Visit Provider Psychiatry & Neurology Neurology
DX: E11.42 Type 2 diabetes mellitus with diabetic polyneuropathy (principal)
CPT/HCPCS: 95861; 95885; 95911

== ENCOUNTER → 2025-02-05 11:38 | Outpatient (BNV) | payer OTHER, SELFPAY | PROVIDERS: PCP Internal Medicine; Visit Provider Psychiatry & Neurology Neurology | DX: G62.89 Other specified polyneuropathies (principal) | CPT/HCPCS: 95911 ==

== ENCOUNTER 2025-03-14 10:03 | Outpatient (REF) | payer OTHER, SELFPAY | END 2025-03-14 10:04 | disposition home or self-care (01) | LOC: HO.CT 10:03 | PROVIDERS: PCP Internal Medicine; Visit Provider Internal Medicine Pulmonary Disease | DX: J98.4 Other disorders of lung (principal) | CPT/HCPCS: 71250 ==

== ENCOUNTER → 2025-03-14 10:05 | Outpatient (BNV) | payer OTHER, SELFPAY | PROVIDERS: PCP Internal Medicine; Visit Provider Family Medicine | DX: J98.4 Other disorders of lung (principal); J98.11 Atelectasis | CPT/HCPCS: 71250 ==

== ENCOUNTER 2025-03-16 09:35 | Outpatient (REF) | payer OTHER, SELFPAY ==
--- NOTE | 2025-03-16 | EMG_ITS ---
Chief complaint: Numbness Reason for referral: Diabetic polyneuropathy Referred by:?Dr Marks Procedure done: Bilateral lower extremities EMG Bilateral tibial and peroneal motor studies were performed bilateral superficial peroneal and sural sensory studies were performed tibial H reflexes were obtained and EMG needle examination was performed. Tibial and peroneal distal latencies were slightly prolonged with significant reduction of amplitude and mildly slow conduction velocities. Sensory responses were absent. H responses were absent. 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
== END 2025-03-16 09:36 | disposition home or self-care (01) ==
LOC: HO.NEURO 09:35
PROVIDERS: PCP Internal Medicine; Visit Provider Psychiatry & Neurology Neurology
DX: E11.42 Type 2 diabetes mellitus with diabetic polyneuropathy (principal)
CPT/HCPCS: 95861; 95886; 95911

== ENCOUNTER → 2025-03-16 10:05 | Outpatient (BNV) | payer OTHER, SELFPAY | PROVIDERS: PCP Internal Medicine; Visit Provider Psychiatry & Neurology Neurology | DX: E11.42 Type 2 diabetes mellitus with diabetic polyneuropathy (principal) | CPT/HCPCS: 95886; 95911 ==

== ENCOUNTER 2025-03-27 08:33 | Outpatient (AMB) | payer OTHER, SELFPAY ==
--- NOTE | 2025-03-27 09:01 | A.OFFVIS_ITS ---
Intake Visit Reasons: results Allergies mercaptopurine Adverse Reaction (Intermediate, Verified 03/27/25 09:02) pancreatitis Medication List - Last Reconciled 03/27/25 by Kelly Mayes CNP alcohol swabs (Alcohol Pads) topically; for blood sugar testing. Trulicity injections blood sugar diagnostic (OneTouch Ultra Test strips) As directed once per day blood-glucose meter (OneTouch Ultra2 Meter) As directed once per day dulaglutide (Trulicity) 0.75 mg (0.5 mL) subcut QWEEK empagliflozin (Jardiance) 25 mg PO DAILY ferrous gluconate 240 mg PO DAILY gabapentin 100 mg PO BEDTIME 90 days lancets (varinodeTouch Delica Plus Lancet) As directed once per day lisinopril 10 mg PO DAILY peg 3350-electrolytes 236-22.74-6.74 -5.86 gram (Golytely) 240 mL PO Q10M HPI Comments Details: 34-year-old man with hypertension and type 2 diabetes here with numbness, tingling, and occasional pain to lower extremities. It first started about 1 year ago with numbness and tingling to feet which slowly spread up to mid-shins bilaterally. Numbness was worse in feet, R > L, particularly in R great toe. He has some pain in toes at night, R > L, usually throbbing-type, which gabapentin 100mg helps with and is able to sleep. If he forgets to take medication, sleep was disrupted from pain. Balance was okay, no falls. He denied any significant alcohol use. He was doing okay. He was here for testing results. No significant changes. Numbness and tingling was unchanged. Pain was controlled with gabapentin at bedtime. Balance was okay, no falls. [facility] Medical History Pulmonary abscess Inflammatory bowel disease (Crohn's disease) Type 2 diabetes mellitus without complications Acute iritis Surgical History Hx of colonoscopy History of esophagogastroduodenoscopy (EGD) No pertinent past surgical history Social History Household Members: Other Household Members Other:: PARENTS AND BROTHER Housing: House Alcohol intake: current Alcohol intake frequency: holidays/special occasions only Patient Tobacco Use Status: Never used Tobacco e-Cigarette/Vaping Use: Never Used Second Hand Smoke Exposure: No service: No Current occupational status: employed Cognitive needs: No Hearing needs: No Vision needs: Yes (glasses) Review of Systems Const Denies chills, Denies daytime sleepiness, Denies difficulty sleeping, Denies fatigue, Denies fever(s), Denies frequent falls, Denies headache(s), Denies increased appetite, Denies poor appetite, Denies snoring, Denies weakness, Denies weight gain and Denies weight loss Eyes Denies loss of vision ENT Denies vertigo, Denies dizziness and Denies headache(s) Card Denies chest pain at rest, Denies chest pain with activity, Denies syncope, Denies leg edema and Denies palpitations Resp Denies snoring GI Denies constipation, Denies heartburn, Denies diarrhea and Denies nausea Denies urinary frequency, Denies urinary incontinence and Denies urinary urgency Musc Denies abnormal gait, Reports numbness and Reports tingling Skin/Breast Denies dry skin and Denies rash Neuro Denies abnormal gait, Denies vertigo, Denies dizziness, Denies syncope, Denies frequent falls, Denies headache(s), Denies lack of coordination, Denies loss of vision, Denies memory loss, Reports numbness, Denies restless legs, Denies seizure-like activity, Reports tingling, Denies paresthesias, Denies tremor(s) and Denies weakness Psych Denies anxiety, Denies depression, Denies auditory hallucinations, Denies memory loss, Denies visual hallucinations and Denies suicidal ideation Endo Denies fatigue and Denies palpitations Physical Exam Const Other: General Appearance:? normal, in no acute distress. Skin:? no rashes, no significant birthmarks. Heart:? S1, S2 normal, no murmurs. Lungs:? clear anteriorly and posteriorly. Extremities:? no edema. Psych:? alert, oriented, cognitive function intact, cooperative with exam. Neuro Other: Mental Status:?Normal attention, orientation, memory and affect.? Cranial Nerves:?Pupils are equal, round and reactive to light. External occular muscles are intact. Visual mora are full. Face is symmetrical. Facial sensations are normal. Tongue is midline. Palate elevates symmetrically. Shoulder shrugging is normal. Hearing to bedside conversation is normal. Sensory Exam:?Decreased vibration and joint position sensation. Coordination:?No ataxia,?no titubation.? Gait Exam: Within normal limits. Cerebellar Signs:?[id number] is okay. Extrapyramidal System:?No tremor, rigidity with normal facial expressions.? Pronator Drift:?Not present.? Involuntary Movements:?No tremors seen.? Speech:?Normal.? Results Reviewed Results Reviewed: Laboratory Tests 02/03/25 09:40 Vitamin B12 591 Folate 14.7 IgG Total 1226 IgA Total 544 H IgM 89 PAUL Interpretation SEE NOTE KAM Screen NEGATIVE KAM Titer TNP KAM Titer 2 TNP KAM Titer 3 TNP KAM Pattern TNP KAM Pattern 2 TNP KAM Pattern 3 TNP [place] [id number] EMG / Nerve Conduction Report Signed Patient: Meet Akhtar MR#: [id number] : 1990 Acct:[id number] Age/Sex: 34 / M ADM Date: 03/16/25 Loc: .NEURO Attending Dr: George Marks MD Ordering Physician: George Marks MD Date of Service: 03/16/25 Procedure(s): NE electromyogram (EMG) Accession Number(s): [id number] cc: George Marks MD~ Reason for Exam: DIABETIC PERIPHERAL NEUROPATHY Chief complaint: Numbness Reason for referral: Diabetic polyneuropathy Referred by:?Dr Marks Procedure done: Bilateral lower extremities EMG Bilateral tibial and peroneal motor studies were performed bilateral superficial peroneal and sural sensory studies were performed tibial H reflexes were obtained and EMG needle examination was performed. Tibial and peroneal distal latencies were slightly prolonged with significant reduction of amplitude and mildly slow conduction velocities. Sensory responses were absent. H responses were absent. Impression: Moderately severe axonal sensory motor peripheral neuropathy Dictated By: George Marks MD Signed By: <Electronically signed by George Marks MD> 03/16/25 1213 -- 12/2024 labs - BUN 27, creat 1.5, A1c 5.9 Assessment & Plan Assessment & Plan (1) Diabetic neuropathy: Code(s): E11.40 - Type 2 diabetes mellitus with diabetic neuropathy, unspecified Category: Medical Qualifiers: Diabetes mellitus complication detail: diabetic polyneuropathy Diabetes mellitus type: type 2 Qualified Code(s): E11.42 - Type 2 diabetes mellitus with diabetic polyneuropathy Plan: Lab and NCV/EMG results reviewed. Continue gabapentin 100mg 1 capsule at bedtime. Control blood sugar, stay physically active. Coding Level of Care Code Est Pt Level 4 (38274) Diagnoses Diabetic polyneuropathy associated with type 2 diabetes mellitus E11.42 Diabetes mellitus complication detail: diabetic polyneuropathy Diabetes mellitus type: type 2
== END 2025-03-27 09:17 | disposition home or self-care (01) ==
LOC: HO.HSM 08:33
PROVIDERS: PCP Internal Medicine; Visit Provider Registered Nurse
DX: E11.42 Type 2 diabetes mellitus with diabetic polyneuropathy (principal)
CPT/HCPCS: 99214

== ENCOUNTER 2025-03-31 08:41 | Outpatient (AMB) | payer OTHER, SELFPAY ==
[2025-03-31 08:51] VITALS: BP 100/58; PULSE 98; O2SAT 98; BMI 25.7
--- NOTE | 2025-03-31 08:51 | MHC.OFFVIS ---
Vital Signs 03/31/25 08:51 Height 5 ft 10 in Weight 179 lb BMI 25.7 BP 100/58 L Blood Pressure Location Lt brachial Position Sitting Pulse 98 Pulse Source Pulse Oximeter Pulse Oximetry (%) 98 Oxygen Delivery Method Room Air Intake Visit Reasons: HDF Cavitary lesion Allergies mercaptopurine Adverse Reaction (Intermediate, Verified 03/31/25 08:56) pancreatitis HPI HPI HDF Cavitary lesion: Details: 34-year-old gentleman followed for persistent MSSA abscess, now with resolution of abscess, but with residual cavitary lesion, slowly shrinking on repeat CT scan. Patient at this time is essentially asymptomatic. ON LICENSE OF [facility] Medical History Pulmonary abscess Inflammatory bowel disease (Crohn's disease) Type 2 diabetes mellitus without complications Acute iritis Surgical History Hx of colonoscopy History of esophagogastroduodenoscopy (EGD) No pertinent past surgical history Social History Household Members: Other Household Members Other:: PARENTS AND BROTHER Housing: House Alcohol intake: current Alcohol intake frequency: holidays/special occasions only Patient Tobacco Use Status: Never used Tobacco e-Cigarette/Vaping Use: Never Used Second Hand Smoke Exposure: No service: No Current occupational status: employed Cognitive needs: No Hearing needs: No Vision needs: Yes (glasses) Review of Systems Const Denies daytime sleepiness, Denies excessive sweating, Denies fatigue, Denies fever(s), Denies lethargy, Denies malaise, Denies night sweats, Denies snoring and Denies weight loss Eyes Denies blurry vision and Denies itchy eyes ENT Denies nasal congestion, Denies post nasal drip, Denies sinus pain, Denies sinus pressure and Denies other ( Thrush) Card Denies chest pain, Denies pedal edema, Denies dyspnea, Denies orthopnea and Denies paroxysmal nocturnal dyspnea Resp Denies cough, Denies hemoptysis, Denies excessive phlegm production, Denies dyspnea, Denies snoring and Denies wheezing GI Denies abdominal pain and Denies heartburn Musc Denies myalgias, Denies arthralgias and Denies joint swelling Skin/Breast Denies rash Neuro Denies memory loss and Denies seizure-like activity Psych Denies abnormal sleep pattern, Denies anxiety and Denies memory loss Endo Denies excessive sweating, Denies fatigue and Denies heat intolerance Trevin/Lymph Denies easy bruising Aller/Immun Denies itchy eyes, Denies seasonal rhinorrhea and Denies wheezing Physical Exam Vital Signs: Last Vital Signs Pulse 98 03/31/25 08:51 BP 100/58 L 03/31/25 08:51 Pulse Ox 98 03/31/25 08:51 Oxygen Delivery Method Room Air 03/31/25 08:51 BMI result Body Mass Index 25.7 Const General: no acute distress and alert Nutritional Appearance: not obese Orientation/consciousness: Other orientation findings ( oriented) HEENT Head: Yes atraumatic Eyes General: appearance normal, both eyes and all related structures Sclerae: sclerae normal EOM: EOMs intact bilaterally Neck Neck: Yes supple Lymphatic: no lymphadenopathy noted Resp Effort & Inspection: normal respiratory effort and no use of accessory muscles Auscultation: clear to auscultation bilaterally Cardio Rate: regular rate Rhythm: regular rhythm Heart sounds: no gallops, no murmurs and no rubs Skin General skin exam: other ( warm) Extrem General: No clubbing, No cyanosis and No edema Assessment & Plan Assessment & Plan (1) Cavitary lesion of lung: Code(s): J98.4 - Other disorders of lung Category: Medical Plan: Old abscess cavity slowly shrinking, will continue with radiologic surveillance with CT scan in 12 months. Orders: Orders CT chest wo IV con 03/29/26 J98.4 - Other disorders of lung Coding Level of Care Code Est Pt Level 3 (45870) Diagnoses Cavitary lesion of lung J98.4
== END 2025-03-31 09:08 | disposition home or self-care (01) ==
PROVIDERS: PCP Internal Medicine; Visit Provider Internal Medicine Pulmonary Disease
DX: J98.4 Other disorders of lung (principal)
CPT/HCPCS: 99213